=== PATIENT | male | born 1970 | race Two or more races ===

== ENCOUNTER → 2016-05-06 | Outpatient (CLI) | payer BC, OTHER | END | disposition home or self-care (01) | LOC: MW.CHORTHO 09:50 | PROVIDERS: ATTEND Orthopaedic Surgery | DX: M17.11 Unilateral primary osteoarthritis, right knee (principal) | CPT/HCPCS: 73721-RT ==

== ENCOUNTER 2016-06-01 09:56 | Inpatient (IN) | payer OTHER, BC ==
[~2016-06-01 09:56] MED LIST: Acetaminophen 500 MG Tab PO SCH; Famotidine 20 MG/2 ML SDV IVPUSH SCH; Ropivacaine 49.25 ML, EPINEPHrine 0.5 MG, cloNIDine 80 MCG in Sodium Chloride 0.9% 49.4... INJECT ONE; Scopolamine 1.5 MG Transdermal Patch TRDERM SCH; ceFAZolin 2 GM in Premix Bag 1 BAG IV SCH; oxyCODONE ER 20 MG TAB.ER PO SCH
[2016-06-01] MEDS ORDERED: Midazolam 1 MG/ML 2 ML SDV ONE ×2 (10:17→11:11)
[2016-06-01] MEDS: Lactated Ringers 1,000 ML IV SCH ×2 (10:41→15:01)
[2016-06-01] MEDS ORDERED: fentaNYL 100 MCG/2 ML SDV ONE (11:11)
[2016-06-01] MEDS ORDERED: Propofol 200 MG/20 ML SDV ONE ×5 (11:12→13:29)
--- NOTE | 2016-06-01 11:23 | PCM.PREANE ---
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; sleep apnea - uses CPAP) Cardiovascular: Other (aortic valve replacement 2011; coumadin until 5 days ago , then lovenox - last dose 12 hour ago HTN - on metoprolol) Gastrointestinal: No symptoms Neurological: Gait Disturbance (johan to knee pain) - Physical Assessment NPO Status Date: 05/31/16 NPO Status Time: 22:00 O2 Sat by Pulse Oximetry: 99 Respiratory Rate: 18 Vital Signs: Last Vital Signs Temp 98.2 F 06/01/16 10:31 Pulse 64 06/01/16 10:31 Resp 18 06/01/16 10:31 BP 135/87 06/01/16 10:31 Pulse Ox 99 06/01/16 10:31 Height: 5 ft 8 in Weight: 225 lb ASA Class: 3 Mental Status: Alert & Oriented x3 Airway Class: Mallampati = 1 Dentition: Reports: Normal Dentition Thyro-Mental Finger Breadths: 3 Mouth Opening Finger Breadths: 3 (wide palate) - Lab Values: Laboratory Last Values Blood Type A POSITIVE 06/01/16 10:15 Antibody Screen NEGATIVE 06/01/16 10:15 - Allergies Allergies/Adverse Reactions: Allergies Allergy/AdvReac Type Severity Reaction Status Date / Time No Known Allergies Allergy Verified 05/27/16 10:54 - Blood Blood Available: Yes Product(s) Available: PRBC - Anesthesia Plan Free Text/Narrative:: needs PT/PTT before neuroaxis anesthetic - Acknowledgements Anesthesia Type Planned: Spinal (with sedation) Pt an Appropriate Candidate for the Planned Anesthesia: Yes Alternatives and Risks of Anesthesia Discussed w Pt/Guardian: Yes Pt/Guardian Understands and Agrees with Anesthesia Plan: Yes PreAnesthesia Questionnaire HEENT History: Reports: None Cardiovascular History: Reports: Heart valve replacement Other Cardiovascular History: takes metoprolol since heart valve surgery, never hypertensive Respiratory History: Reports: Sleep apnea, TB Other Respiratory History: uses CPAP, was diagnosed with latent TB 3 months ago Gastrointestinal History: Reports: None Genitourinary History: Reports: None Musculoskeletal History: Reports: Arthritis, Fracture Other Musculoskeletal History: hx of fx right arm Neurological History: Reports: Other (see below) Other Neuro History: hx of motion sickness Psychiatric History: Reports: None Endocrine/Metabolic History: Reports: Obesity/BMI 30+ Hematologic History: Reports: None Immunologic History: Reports: None Oncologic (Cancer) History: Reports: None Dermatologic History: Reports: None - Infectious Disease History Infectious Disease History: Reports: Chicken pox - Past Surgical History Head Surgeries/Procedures: Reports: None HEENT Surgical History: Reports: None Cardiovascular Surgical History: Reports: Valve replacement Other Cardiovascular Surgeries/Procedures: Aortic Bicuspid Valve replacement Respiratory Surgical History: Reports: None GI Surgical History: Reports: None Male Surgical History: Reports: None Endocrine Surgical History: Reports: None Neurological Surgical History: Reports: None Musculoskeletal Surgical History: Reports: Arthroscopic knee Other Musculoskeletal Surgeries/Procedures:: right knee x2 Oncologic Surgical History: Reports: None Dermatological Surgical History: Reports: None - SUBSTANCE USE Smoking Status *Q: Current Some Day Smoker Tobacco Use Within Last Twelve Months: Cigars Second Hand Smoke Exposure: Yes Days Per Week of Alcohol Use: 0 Recreational Drug Use History: No - HOME MEDS Home Medications: Home Meds Clotrimazole/Betamethasone Dip [Lotrisone Cream] 1 lotion TOP BID 04/11/16 [ History] Folic Acid 1 mg PO DAILY 04/11/16 [History] Isoniazid 1 tab PO DAILY 04/11/16 [History] Methotrexate Sodium/PF [Methotrexate 1 gm Vial] 50 mg IM ASDIRECTED 04/11/16 [ History] Metoprolol Tartrate 25 mg PO BID 04/11/16 [History] Vitamin B6-pyridOXINE 1 tab PO DAILY 04/11/16 [History] Warfarin [Coumadin] 5 mg PO DAILY 04/11/16 [History] Acetaminophen [Tylenol Extra Strength] 500 mg PO Q4H PRN 05/27/16 [History] Fenofibrate Nanocrystallized [Fenofibrate] 145 mg PO BEDTIME 05/27/16 [History] traMADol HCl [Ultram] 50 - 100 mg PO Q4H PRN 05/27/16 [History] - CURRENT (IN HOUSE) MEDS Current Meds: Current Medications Acetaminophen (Tylenol Extra Strength) 1,000 mg PO ONARRIVE RICKEY Famotidine (Pepcid) 40 mg IVPUSH ONARRIVE RICKEY Lactated Ringer's (Ringers, Lactated) 1,000 mls @ 100 mls/hr IV ASDIRECTED [facility] Last Admin: 06/01/16 10:41 Dose: 100 mls/hr Cefazolin Sodium/Dextrose 2 gm (/ Premix) 50 mls @ 100 mls/hr IV ONCALL RICKEY Oxycodone HCl (Oxycontin) 20 mg PO [facility]IVE [facility] Scopolamine (Transderm-Scop) 1.5 mg TRDERM [facility] Tranexamic Acid (Cyklokapron) 4,000 mg IV SEECOMMENT [facility] Discontinued Medications Fentanyl (Sublimaze) Confirm Administered Dose 100 mcg .ROUTE .STK-MED ONE Stop: 06/01/16 11:12 Ropivacaine 49.25 ml/Epinephrine HCl 0.5 mg/Clonidine HCl 80 mcg/ Sodium Chloride 100 mls @ 50 mls/hr INJECT ONETIME ONE Stop: 06/01/16 08:59 Midazolam HCl (Versed 1 Mg/Ml) Confirm Administered Dose 2 mg .ROUTE .STK-MED ONE Stop: 06/01/16 10:18 Midazolam HCl (Versed 1 Mg/Ml) Confirm Administered Dose 2 mg .ROUTE .STK-MED ONE Stop: 06/01/16 11:12 Propofol (Diprivan 20 Ml) Confirm Administered Dose 200 mg .ROUTE .STK-MED ONE Stop: 06/01/16 11:13 Propofol (Diprivan 20 Ml) Confirm Administered Dose 200 mg .ROUTE .STK-MED ONE Stop: 06/01/16 11:13 Propofol (Diprivan 20 Ml) Confirm Administered Dose 200 mg .ROUTE .STK-MED ONE Stop: 06/01/16 11:14 Tranexamic Acid (Cyklokapron) Confirm Administered Dose 4,000 mg .ROUTE .STK- MED ONE Stop: 06/01/16 07:18 Preanesthetic Assessment - ANESTHESIA/TRANSFUSION/FAMILY HX Anesthesia/Transfusion History: No Prior Transfusion(s), Prior Anesthesia (GA without problems in the past) Family History of Anesthesia Reaction: No - PHYSICAL ASSESSMENT O2 Sat by Pulse Oximetry: 99 RR: 18 Vital Signs: Last Vital Signs Temp 98.2 F 06/01/16 10:31 Pulse 64 06/01/16 10:31 Resp 18 06/01/16 10:31 BP 135/87 06/01/16 10:31 Pulse Ox 99 06/01/16 10:31 Height: 5 ft 8 in Weight: 225 lb - LAB Values: Laboratory Last Values Blood Type A POSITIVE 06/01/16 10:15 Antibody Screen NEGATIVE 06/01/16 10:15 - ALLERGIES Allergies/Adverse Reactions: Allergies Allergy/AdvReac Type Severity Reaction Status Date / Time No Known Allergies Allergy Verified 05/27/16 10:54
--- NOTE | 2016-06-01 11:26 | PCM.OPNOTE ---
- General Post-Op/Procedure Note Date of Surgery/Procedure: 06/01/16 Operative Procedure(s): R TKA Post-Op Diagnosis: DJD R knee Anesthesia Technique: Moderate sedation, Spinal Primary Surgeon: Bria Mancilla Fruit Washer: Pb Banuelos Fruit Washer: Radha Hubbard in mLs: 50 Condition: Good Free Text/Narrative:: tt=62 min #[id number]
[2016-06-01] MEDS ORDERED: ePHEDrine 50 MG/ML SDV ONE (12:53)
[2016-06-01] MEDS ORDERED: Ondansetron 4 MG/2 ML SDV IV PRN (13:49)
[2016-06-01] MEDS ORDERED: Bisacodyl 10 MG Supp RECTAL PRN (13:49)
[2016-06-01] MEDS ORDERED: diphenhydrAMINE 25 MG Cap PO PRN (13:49)
[2016-06-01] MEDS ORDERED: Aluminum Hydroxide/Magnesium Hydroxide/Simethicone Susp 30 ML Cup PO PRN (13:49)
--- NOTE | 2016-06-01 14:27 | PCM.POSTAN ---
POST ANESTHESIA ASSESSMENT - MENTAL STATUS Mental Status: alert, oriented - RESPIRATORY Respiratory Status: respiratory rate WNL, airway patent, O2 saturation stable - CARDIOVASCULAR CV Status: pulse rate WNL, blood pressure stable - GASTROINTESTINAL GI Status: no symptoms - PAIN Pain Score: 0 - POST OP HYDRATION Hydration Status: adequate & stable
[2016-06-01] MEDS: Acetaminophen 500 MG Tab PO SCH ×2 (15:00→19:27)
--- NOTE | 2016-06-01 15:02 | PCM.CONS ---
H&P History of Present Illness - General Date of Service: 06/01/16 Admit Problem/Dx: Admission Diagnosis/Problem Admission Diagnosis/Problem Replacement of total knee joint Source of Information: Patient, Old records History Limitations: Reports: No limitations - History of Present Illness Initial Comments - Free Text/Narative: This 45 year old male with pmh of bicuspid aortic valve with replacement with metallic mechanical valve 2011, anticoagulation, VICKY, and obesity presented today for R TKA with Dr. Mancilla. He is very drowsy right out of surgery, Denies any pain, no SOB or Chest pain. family at bedside. Reports legs are numb still. No concerns at this time. He was recently seen by Telephone Assembler being worked up for RA and wanting to be placed on Humira. It was found he has latent TB and was placed on Isoniazid, he has been taking this for the past 3 mo. He is scheduled to take this for a total of 9 months. No symptoms at this time, no cough fever or night sweats. Reviewed charts from Dr. Mcgill and Dr. Bunn. - Related Data Allergies/Adverse Reactions: Allergies Allergy/AdvReac Type Severity Reaction Status Date / Time No Known Allergies Allergy Verified 05/27/16 10:54 Home Medications: Home Meds Clotrimazole/Betamethasone Dip [Lotrisone Cream] 1 lotion TOP BID 04/11/16 [ History] Folic Acid 1 mg PO DAILY 04/11/16 [History] Isoniazid 300 mg PO DAILY 04/11/16 [History] Methotrexate Sodium/PF [Methotrexate 1 gm Vial] 50 mg IM WEEKLY 04/11/16 [ History] Metoprolol Tartrate 25 mg PO BID 04/11/16 [History] Vitamin B6-pyridOXINE 1 tab PO DAILY 04/11/16 [History] Warfarin [Coumadin] 5 mg PO DAILY 04/11/16 [History] Acetaminophen [Tylenol Extra Strength] 500 mg PO Q4H PRN 05/27/16 [History] Fenofibrate Nanocrystallized [Fenofibrate] 145 mg PO BEDTIME 05/27/16 [History] traMADol HCl [Ultram] 50 - 100 mg PO Q4H PRN 05/27/16 [History] oxyCODONE HCl/Acetaminophen [Percocet 10-325 mg Tablet] 10 - 325 mg PO QID PRN 06/01/16 [History] Past Medical History HEENT History: Reports: None Cardiovascular History: Reports: Heart valve replacement Other Cardiovascular History: takes metoprolol since heart valve surgery, never hypertensive. Aortic valve, metallic mechanical Respiratory History: Reports: Sleep apnea (Uses CPAP), TB (Latent, currently on INH 3 mos of 9 mo treatment already taken) Gastrointestinal History: Reports: None. Denies: GERD, GI bleed Genitourinary History: Reports: None Musculoskeletal History: Reports: Arthritis, Fracture Other Musculoskeletal History: hx of fx right arm Neurological History: Reports: Other (see below) Psychiatric History: Reports: None Endocrine/Metabolic History: Reports: Obesity/BMI 30+. Denies: Diabetes, type II, Hypothyroidism Hematologic History: Reports: Anticoagulation therapy Immunologic History: Reports: None Oncologic (Cancer) History: Reports: None Dermatologic History: Reports: None - Infectious Disease History Infectious Disease History: Reports: Chicken pox, TB (latent) - Past Surgical History Head Surgeries/Procedures: Reports: None HEENT Surgical History: Reports: None Cardiovascular Surgical History: Reports: Valve replacement Other Cardiovascular Surgeries/Procedures: Aortic Bicuspid Valve replacement Respiratory Surgical History: Reports: None GI Surgical History: Reports: None Male Surgical History: Reports: None Endocrine Surgical History: Reports: None Neurological Surgical History: Reports: None Musculoskeletal Surgical History: Reports: Arthroscopic knee Other Musculoskeletal Surgeries/Procedures:: right knee x2 Oncologic Surgical History: Reports: None Dermatological Surgical History: Reports: None Social & Family History - Family History Cardiac: Reports: Hypertension, [place] - Tobacco Use Smoking Status *Q: Current Some Day Smoker Years of Tobacco use: 20 Packs/Tins Daily: 0 Used Tobacco, but Quit: Yes Month Tobacco Last Used: 2011 Tobacco Use Comment: occasional cigar Second Hand Smoke Exposure: Yes - Alcohol Use Days Per Week of Alcohol Use: 0 - Recreational Drug Use Recreational Drug Use: No Drug Use in Last 12 Months: No H&P Review of Systems - Review of Systems: Review Of Systems: ROS reveals no pertinent complaints other than HPI. HEENT: Reports: no symptoms. Denies: headaches Pulmonary: Reports: No Symptoms. Denies: Shortness of Breath, Cough, Sputum Cardiovascular: Reports: no symptoms. Denies: chest pain, palpitations, edema Gastrointestinal: Reports: No symptoms. Denies: Abdominal pain, Black stool, Bloody stool, Nausea, Vomiting Neurological: Reports: No Symptoms Exam - Exam Exam: See Below - Vital Signs Vital Signs: Last Vital Signs Temp 98.2 F 06/01/16 11:20 Pulse 64 06/01/16 14:20 Resp 19 06/01/16 14:20 BP 131/82 06/01/16 14:20 Pulse Ox 99 06/01/16 14:20 Weight: 102.058 kg - Exam Quality Assessment: urinary catheter, DVT prophylaxis General: alert, oriented, other (drowsy from surgery) HEENT: Conjunctiva clear, EACs clear, EOMI, Hearing intact, Mucosa moist & pink , Nares patent, Posterior pharynx clear Neck: supple, trachea midline, 2 Lungs: Clear to auscultation, Normal respiratory effort Cardiovascular: regular rate, regular rhythm, other (mechanical click) Abdomen: normal bowel sounds, soft. No: organomegaly, guarding, rigidity, rebound, tenderness Extremities: normal inspection, normal pulses. No: increased warmth Skin: incision (R TKA, dressing intact) Neuro Extensive - Mental Status: alert, oriented x3, normal mood/affect, normal cognition Neuro Extensive - Motor, Sensory, Reflexes: CN II-XII intact, normal gait, normal reflexes Psychiatric: alert, normal affect, normal mood - Patient Data Lab Results last 24 hrs: Laboratory Results - last 24 hr 06/01/16 06/01/16 Range/Units 10:15 11:21 INR 1.00 (0.86-1.11) Blood Type A POSITIVE Antibody Screen NEGATIVE Consult PN Assessment/Plan Procedures: Procedures ASSAY OF AMYLASE (04/11/16) ASSAY OF CK (CPK) (03/13/14) ASSAY OF LIPASE (04/11/16) ASSAY OF TROPONIN QUANT (05/08/15) CHEST X-RAY 1 VIEW FRONTAL (05/08/15) COMPLETE CBC W/AUTO DIFF WBC (04/11/16) COMPREHEN METABOLIC PANEL (04/11/16) CREATINE MB FRACTION (03/13/14) CT ABD & PELV W/CONTRAST (04/11/16) CT THORAX W/DYE (11/09/13) ELECTROCARDIOGRAM TRACING (05/08/15) EMERGENCY DEPT VISIT (04/11/16) EMERGENCY DEPT VISIT (11/24/14) EMERGENCY DEPT VISIT (03/13/14) FIBRIN DEGRADATION QUANT (05/08/15) GLYCOSYLATED HEMOGLOBIN TEST (03/13/14) IIV3 VACC NO PRSV 0.5 ML IM (03/13/14) KNEE ARTHROSCOPY/SURGERY (07/12/15) LIPID PANEL (03/13/14) MRI JNT OF LWR EXTRE W/O DYE (05/06/16) PROTHROMBIN TIME (04/11/16) ROUTINE VENIPUNCTURE (04/11/16) THER/PROPH/DIAG INJ IV PUSH (04/11/16) X-RAY EXAM KNEE 4 OR MORE (03/26/16) X-RAY EXAM OF KNEE 3 (01/31/15) (1) S/P total knee arthroplasty SNOMED Code(s): 4190125822159, 890557569, 9027939334052 Code(s): Z96.659 - PRESENCE OF UNSPECIFIED ARTIFICIAL KNEE JOINT Current Visit: Yes Qualifiers: Laterality: right Qualified Code(s): Z96.651 - Presence of right artificial knee joint (2) Aortic valve replaced SNOMED Code(s): 7037189709282, 790390013, 036622010, 8433760802075 Code(s): Z95.2 - PRESENCE OF PROSTHETIC HEART VALVE Current Visit: Yes (3) VICKY on CPAP SNOMED Code(s): 92677718 Code(s): G47.33 - OBSTRUCTIVE SLEEP APNEA (ADULT) (PEDIATRIC); Z99.89 - DEPENDENCE ON OTHER ENABLING MACHINES AND DEVICES Current Visit: Yes (4) Anticoagulated on Coumadin SNOMED Code(s): 70553175 Code(s): Z51.81 - ENCOUNTER FOR THERAPEUTIC DRUG LEVEL MONITORING; Z79.01 - NURSING HOME (CURRENT) USE OF ANTICOAGULANTS Current Visit: No Problem List Initiated/Reviewed/Updated: Yes Plan: This 45 year old male admitted with R TKA pmh of aortic valve replacement, VICKY, and anticoagulation on Coumadin 1. Aortic valve replacement and anticoagulation: Would recommend following Dr. Mcgill's instructions for restarting anticoagulation, Lovenox BID 1 mg/kg 24 -48 hrs post operatively and then Coumadin 48 hours after surgery. Monitor INR, today 1.0. Continue Metoprolol. 2. Latent TB: Continue INH daily 3. VICKY: CPAP at bedside. VTE: As per Dr Mcgill's recommendations and when deemed appropriate to start from Orthopedics.
[2016-06-01 16:26] LABS: CHLORIDE,CL 107 mmol/L (98-110); SODIUM,NA 138 mmol/L (136-146)
--- NOTE | 2016-06-01 16:34 | CR ---
EXAM DATE: 06/01/16 PATIENT'S AGE: 45 Patient: ALIA MASON Facility: [place], [place] Site . Site : [id number] Study: XRay Knee Right [id number]/01/2016 2:12:00 PM Ordering Physician: Charo Fraser Final Report: Indication: Right knee arthroplasty. Technique: Right knee 2 views. Findings/Impression: Hardware from a joint arthroplasty is in satisfactory position. Bone alignment is normal. No sign of acute fracture. Postop changes are within normal limits. Dictated by Arthur Levine MD @ Jun 01 2016 2:29PM (Electronic Signature) Report Signed by Proxy and Original Signed Document filed in the Medical Record. MTDD
[2016-06-01] MEDS: Morphine 4 MG/ML Syringe IVPUSH PRN ×2 (16:39→19:42)
[2016-06-01] MEDS: Metoprolol Tartrate 25 MG Tab PO SCH (16:41)
[2016-06-01] MEDS: oxyCODONE 5 MG Tab PO PRN ×2 (17:28→22:17)
[2016-06-01] MEDS: ceFAZolin 2 GM in Premix Bag 1 BAG IV SCH (19:29)
[2016-06-01] MEDS: oxyCODONE ER 20 MG TAB.ER PO SCH (20:18)
[2016-06-01] MEDS: Docusate Sodium 100 MG Cap PO SCH (20:18)
[2016-06-01] MEDS: Fenofibrate Nanocrystallized 145 MG PO SCH (20:47)
--- NOTE | 2016-06-01 20:54 | OR ---
SURGEON: Bria Mancilla MD DATE OF PROCEDURE: 06/01/2016 PREOPERATIVE DIAGNOSIS: Degenerative joint disease, right knee, tricompartmental. POSTOPERATIVE DIAGNOSIS: Degenerative joint disease, right knee, tricompartmental. PROCEDURES: Right total knee arthroplasty using patient specific instrumentation. REVENUE MANAGER: 1. Pb Banuelos PA-C. 2. Radha Hubbard PA-C. ANESTHESIA: Spinal with sedation. ESTIMATED BLOOD LOSS: 50 mL. TOURNIQUET TIME: 62 minutes. COMPLICATIONS: None. DVT PROPHYLAXIS: PAS boot and LUIS hose to the nonoperative leg. IMPLANTS USED: Shanta Persona femoral component size 11 (LPS), tibial component size G, 10 mm all-polyethylene articular surface, and 35 mm all-polyethylene patella. FINDINGS: Showed evidence of tricompartmental degenerative changes which were most severe along the medial compartment. No significant synovitis was noted. 1 g of tranexamic acid was given at the start of the case. An additional g was given IV upon deflation of the tourniquet. 1 g of TXA was administered topically as the cement was allowed to harden. BRIEF HISTORY: The patient is a 45-year-old male, who has had complaint of persistent right knee pain. He has previously undergone a right knee arthroscopy which did show a tear of the medial meniscus. Degenerative changes were found at the time of surgery as well. He did well initially, however, he developed increased pain in the knee. A repeat MRI did show a tear of the lateral meniscus. The patient does have a history of aortic valve replacement and is on long-term anticoagulation. We elected to proceed with definitive treatment for his knee due to his medical conditions as well as the degenerative changes in the knee. He had failed conservative treatment. The risks and goals of procedure were discussed with the patient and documented preoperatively. He agreed to proceed. DESCRIPTION OF PROCEDURE: The patient was properly identified and brought to the operating room. The patient was then transferred from the operating room cart and placed on the operating table in a supine position. Anesthesia was administered by the anesthesia staff. After adequate anesthesia was obtained, a well-padded tourniquet was applied to the surgical lower extremity. The lower extremity was then prepped in standard fashion using ChloraPrep solution. It was then sterilely draped. A time-out was performed to ensure correct site and procedure. Preoperative antibiotics were given. The surgical site had been marked preoperatively. An Esmarch was used to exsanguinate the right lower extremity and the tourniquet was inflated. An incision was made over the anterior aspect of the knee. The subcutaneous tissues were dissected down to the level of the fascia. A medial parapatellar approach to the knee was made. A portion of the infrapatellar fat pad was then excised. The distal femur was then exposed. The femoral patient-specific cutting guide was then placed. Pins were also placed. The distal femoral cutting block was placed and the distal femoral cut was made. Instrumentation was then removed. Both Whitesides' line and the epicondylar axis were then marked with electrocautery. The 4-in-1 cutting block was placed. This was placed in a slightly externally rotated position, which corresponded well with the previously drawn lines. The cutting guide was then pinned into position. An Yoni wing guide was used to check the depth of resection of our anterior condylar cut and it was felt that no notching would occur. The anterior condylar cut was then made followed by the posterior condylar cut. Both the posterior chamfer and anterior chamfer cuts were then made. The cutting block was then removed along with the excess bony remnants. We then turned our attention to the tibia. The anterior cruciate ligament and posterior cruciate ligament were released and a posterior cruciate ligament retractor was placed to allow the tibia to be pulled anteriorly. The tibial patient-specific guide was then placed on the proximal tibia. This fit anatomically. The pins were then placed. The proximal tibia cutting guide was then placed and screwed into position. The proximal tibial resection was then made with care being taken to protect the patellar tendon. The bony resection was then removed. The remainder of the medial and lateral meniscus were then excised. Care was taken to protect the popliteus tendon. The tibia was then sized to the appropriate size. The distal femur was then elevated. The posterior capsule was stripped off the distal femur both medially and laterally. The posterior capsule along with the medial and lateral gutters were then injected with a standard mixture consisting of clonidine, epinephrine, Morphine, Toradol, and Ropivacaine, unless any allergies were found preoperatively. The femoral component was then placed onto the distal femur in a slightly lateral position. This fit the femur well. A box cut was then made without difficulty. This was then removed. The tibial trial along with the polyethylene liner was then placed. The knee came easily into full extension and was stable to varus and valgus stressing both in full extension and flexion. Any additional releases were performed at this time. We then returned our attention to the patella. The patella was everted and towel clamps were used to hold the patella in position. It was resected to a 15 millimeter thickness. It was then sized to the appropriate size. It was prepared in the usual fashion after placing the predetermined size clamps. This was placed in a slightly superior and medial position. The clamp was then removed. The patellar trial button was placed. The knee was taken through a range of motion using the no-touch technique. The patella tracked centrally. A drop tim was then placed to check alignment. All instruments were then removed from the knee. The tibial sizer was then placed on the tibia. The tibia was prepared in the usual fashion using the reamer and broach. This was then removed. All bony surfaces were copiously irrigated with Pulsavac solution. They were then suctioned dry. Cement was prepared on the back table in the usual manner. Once it was prepared, the bone ends were again suctioned dry. The tibia was cemented into place first. This was malleted into position. Excess cement was then cleared. The femur was then placed in a similar manner. We placed the polyethylene trial into place and the knee was brought into full extension. An axial load was placed while keeping the knee in full extension. The patella button was also cemented into position and the clamp was used to hold this in place as the cement was allowed to cure. After we had adequate curing of the cement, the knee was again taken through a range of motion. The size of the polyethylene was then determined. The polyethylene trial was then removed. The tibial tray was suctioned to make sure there was no remaining soft tissue or cement. Excess cement was cleared from around the edges of the prosthesis as well. The tourniquet was then deflated. We were able to observe for any excess bleeding and none was noted. Electrocautery was used to maintain hemostasis. The retractors were again placed and the predetermined polyethylene was then placed. This was locked into position without difficulty. The knee was again taken through a range of motion with no change from the prior exam. The wound was then copiously irrigated with Pulsavac solution. The fascial layer was closed with Number One Vicryl. The subcutaneous tissues were closed with 2-0 Vicryl. The skin was closed with elder. Xeroform gauze was placed over the wound and a bulky dressing was applied. The patient was then awakened from anesthesia and transferred back to the operating room cart. They were brought to the recovery room in stable condition. All needle and sponge counts were correct. VON / FAHEEM /[id number]
[2016-06-01] MEDS: HYDROmorphone 1 MG/ML Syringe IVPUSH PRN (21:50)
[2016-06-02] MEDS: Lactated Ringers 1,000 ML IV SCH (00:44)
[2016-06-02] MEDS: HYDROmorphone 1 MG/ML Syringe IVPUSH PRN ×8 (00:50→23:38)
[2016-06-02] MEDS: Acetaminophen 500 MG Tab PO SCH ×4 (02:12→19:40)
[2016-06-02] MEDS: oxyCODONE 5 MG Tab PO PRN ×5 (02:42→19:50)
[2016-06-02] MEDS: ceFAZolin 2 GM in Premix Bag 1 BAG IV SCH (03:45)
[2016-06-02 05:28] LABS: CHLORIDE,CL 102 mmol/L (98-110); SODIUM,NA 137 mmol/L (136-146)
--- NOTE | 2016-06-02 07:46 | PCM48HPAN ---
Post Anesthesia Note - EVALUATION WITHIN 48HRS OF ANESTHETIC Vital Signs in Normal Range: Yes Patient Participated in Evaluation: Yes Respiratory Function Stable: Yes Airway Patent: Yes Cardiovascular Function Stable: Yes Hydration Status Stable: Yes Pain Control Satisfactory: No (Pt requested dilaudid by name last night - order given via ortho PA) Nausea and Vomiting Control Satisfactory: Yes Mental Status Recovered: Yes - COMMENTS/OBSERVATIONS Free Text/Narrative:: Pt states that he has had sever pain overnight. He has now been receiving Dilaudid IV, which he requested by name, and states that only helps for a short time. Currently pt appears calm with a HR in the 60's, but states that his pain is 20/10. ABDIRASHID Blount was also in attendance and will be following up with pain management. No nausea overnight and no apparent anesthesia complications.
[2016-06-02] MEDS ORDERED: Sodium Chloride 0.9% 10 ML Syringe FLUSH PRN (07:57)
[2016-06-02] MEDS ORDERED: Sodium Chloride 0.9% 2.5 ML Syringe FLUSH PRN (07:57)
--- NOTE | 2016-06-02 07:58 | PCM.SURGPN ---
- General Info Date of Service: 06/02/16 Date of Surgery/Procedure: 06/01/16 POD#: 1 Functional Status: Reports: tolerating diet, ambulating, urinating - Review of Systems General: Reports: No Symptoms Pulmonary: Reports: no symptoms Cardiovascular: Reports: No Symptoms Gastrointestinal: Reports: No symptoms Genitourinary: Reports: no symptoms Musculoskeletal: Reports: leg pain, joint pain, joint swelling Neurological: Reports: No Symptoms Psychiatric: Reports: no symptoms - Patient Data Vitals - most recent: Last Vital Signs Temp 37.1 C 06/02/16 04:00 Pulse 67 06/02/16 04:00 Resp 12 06/02/16 04:00 BP 149/89 H 06/02/16 04:00 Pulse Ox 96 06/02/16 04:00 Weight - most recent: 102 kg I&O - last 24 hours: Intake & Output 06/01/16 06/02/16 06/02/16 22:59 06:59 14:59 Intake Total 1150 3174 Output Total 400 550 Balance 750 2624 Lab Results last 24 hrs: Laboratory Results - last 24 hr 06/01/16 06/01/16 06/01/16 Range/Units 10:15 10:15 10:15 WBC 7.73 (4.0-11.0) K/uL RBC 4.25 L (4.50-5.90) M/uL Hgb 14.8 (13.0-17.0) g/dL Hct 41.2 (38.0-50.0) % MCV 96.9 (80.0-98.0) fL MCH 34.8 H (27.0-32.0) pg MCHC 35.9 (31.0-37.0) g/dL RDW Std Deviation 44.7 (28.0-62.0) fl RDW Coeff of Ghada 13 (11.0-15.0) % Plt Count 189 (150-400) K/uL MPV 11.10 (7.40-12.00) fL Neut % (Auto) 72.4 (48.0-80.0) % Lymph % (Auto) 20.3 (16.0-40.0) % Millard % (Auto) 6.2 (0.0-15.0) % Eos % (Auto) 0.8 (0.0-7.0) % Baso % (Auto) 0.3 (0.0-1.5) % Neut # (Auto) 5.6 (1.4-5.7) K/uL Lymph # (Auto) 1.6 (0.6-2.4) K/uL Millard # (Auto) 0.5 (0.0-0.8) K/uL Eos # (Auto) 0.1 (0.0-0.7) K/uL Baso # (Auto) 0.0 (0.0-0.1) K/uL Nucleated RBC % 0.0 /100WBC Nucleated RBCs # 0 K/uL INR (0.86-1.11) Sodium 138 (136-146) mmol/L Potassium 4.0 (3.5-5.1) mmol/L Chloride 107 (98-110) mmol/L Carbon Dioxide 20 L (21-31) mmol/L BUN 9 (6.0-23.0) mg/dL Creatinine 0.9 (0.6-1.5) mg/dL Est Cr Clr Drug Dosing 101.71 mL/min Estimated GFR (MDRD) > 60.0 ml/min Glucose 153 H (60-110) mg/dL Calcium 8.9 (8.8-10.8) mg/dL Total Bilirubin 0.4 (0.1-1.5) mg/dL AST 23 (5-40) IU/L ALT 36 (8-54) IU/L Alkaline Phosphatase 56 (40-150) Total Protein 6.7 (6.0-8.0) g/dL Albumin 3.7 (3.5-5.0) g/dL Globulin 3.0 (2.0-3.5) g/dL Albumin/Globulin Ratio 1.2 L (1.3-2.8) Blood Type A POSITIVE Antibody Screen NEGATIVE 06/01/16 06/02/16 06/02/16 Range/Units 11:21 04:24 04:24 WBC (4.0-11.0) K/uL RBC (4.50-5.90) M/uL Hgb 12.7 L (13.0-17.0) g/dL Hct 35.3 L (38.0-50.0) % MCV (80.0-98.0) fL MCH (27.0-32.0) pg MCHC (31.0-37.0) g/dL RDW Std Deviation (28.0-62.0) fl RDW Coeff of Ghada (11.0-15.0) % Plt Count (150-400) K/uL MPV (7.40-12.00) fL Neut % (Auto) (48.0-80.0) % Lymph % (Auto) (16.0-40.0) % Millard % (Auto) (0.0-15.0) % Eos % (Auto) (0.0-7.0) % Baso % (Auto) (0.0-1.5) % Neut # (Auto) (1.4-5.7) K/uL Lymph # (Auto) (0.6-2.4) K/uL Millard # (Auto) (0.0-0.8) K/uL Eos # (Auto) (0.0-0.7) K/uL Baso # (Auto) (0.0-0.1) K/uL Nucleated RBC % /100WBC Nucleated RBCs # K/uL INR 1.00 (0.86-1.11) Sodium 137 (136-146) mmol/L Potassium 4.0 (3.5-5.1) mmol/L Chloride 102 (98-110) mmol/L Carbon Dioxide 22 (21-31) mmol/L BUN 9 (6.0-23.0) mg/dL Creatinine 0.9 (0.6-1.5) mg/dL Est Cr Clr Drug Dosing 101.71 mL/min Estimated GFR (MDRD) > 60.0 ml/min Glucose 101 (60-110) mg/dL Calcium 8.6 L (8.8-10.8) mg/dL Total Bilirubin (0.1-1.5) mg/dL AST (5-40) IU/L ALT (8-54) IU/L Alkaline Phosphatase (40-150) Total Protein (6.0-8.0) g/dL Albumin (3.5-5.0) g/dL Globulin (2.0-3.5) g/dL Albumin/Globulin Ratio (1.3-2.8) Blood Type Antibody Screen Med Orders - Current: Current Medications Acetaminophen (Tylenol Extra Strength) 1,000 mg PO Q6H [facility] Last Admin: 06/02/16 02:12 Dose: 1,000 mg Al Hydroxide/Mg Hydroxide (Mag-Al Plus) 30 ml PO Q4H PRN PRN Reason: indigestion Bisacodyl (Dulcolax) 10 mg RECTAL DAILY PRN PRN Reason: Constipation Diphenhydramine HCl (Benadryl) 25 - 50 mg PO Q6H PRN PRN Reason: Itching Docusate Sodium (Colace) 100 mg PO BID [facility] Last Admin: 06/01/16 20:18 Dose: 100 mg Enoxaparin Sodium (Lovenox) 100 mg SUBCUT Q12H [facility] Folic Acid (Folic Acid) 1 mg PO DAILY [facility] Hydromorphone HCl (Dilaudid) 1 mg IVPUSH Q3H PRN PRN Reason: Pain Last Admin: 06/02/16 06:50 Dose: 1 mg Lactated Ringer's (Ringers, Lactated) 1,000 mls @ 100 mls/hr IV ASDIRECTED [facility] Last Admin: 06/02/16 00:44 Dose: 100 mls/hr Metoprolol Tartrate (Lopressor) 25 mg PO BIDMEALS [facility] Last Admin: 06/01/16 16:41 Dose: 25 mg Ondansetron HCl (Zofran) 4 mg IV Q6HR PRN PRN Reason: NAUSEA/VOMITING Oxycodone HCl (Oxycodone) 5 - 10 mg PO Q4H PRN PRN Reason: Pain Last Admin: 06/02/16 02:42 Dose: 10 mg Oxycodone HCl (Oxycontin) 20 mg PO Q12HR [facility] Last Admin: 06/01/16 20:18 Dose: 20 mg Isoniazid 300 Mg 1 each PO DAILY [facility] Fenofibrate Nanocrystallized 145 Mg 1 each PO BEDTIME [facility] Last Admin: 06/01/16 20:47 Dose: Not Given Pyridoxine HCl (Vitamin B6-Pyridoxine) 50 mg PO DAILY [facility] Scopolamine (Transderm-Scop) 1.5 mg TRDERM ONARRIVE [facility] Last Admin: 06/01/16 11:00 Dose: 1.5 mg Warfarin Sodium (Coumadin) 5 mg PO DAILY@1400 [facility] Discontinued Medications Acetaminophen (Tylenol Extra Strength) 1,000 mg PO ONARRIVE [facility] Last Admin: 06/01/16 11:00 Dose: 1,000 mg Enoxaparin Sodium (Lovenox) 100 mg SUBCUT DAILY [facility] Ephedrine Sulfate (Ephedrine Sulfate) Confirm Administered Dose 50 mg .ROUTE .STK-MED ONE Stop: 06/01/16 12:54 Famotidine (Pepcid) 40 mg IVPUSH ONARRIVE [facility] Last Admin: 06/01/16 11:00 Dose: 40 mg Fentanyl (Sublimaze) Confirm Administered Dose 100 mcg .ROUTE .STK-MED ONE Stop: 06/01/16 11:12 Ropivacaine 49.25 ml/Epinephrine HCl 0.5 mg/Clonidine HCl 80 mcg/ Sodium Chloride 100 mls @ 50 mls/hr INJECT ONETIME ONE Stop: 06/01/16 08:59 Last Admin: 06/01/16 15:33 Dose: Not Given Cefazolin Sodium/Dextrose 2 gm (/ Premix) 50 mls @ 100 mls/hr IV ONCALL [facility] Cefazolin Sodium/Dextrose 2 gm (/ Premix) 50 mls @ 100 mls/hr IV Q8H [facility] Stop: 06/02/16 04:29 Last Admin: 06/02/16 03:45 Dose: 100 mls/hr Midazolam HCl (Versed 1 Mg/Ml) Confirm Administered Dose 2 mg .ROUTE .STK-MED ONE Stop: 06/01/16 10:18 Midazolam HCl (Versed 1 Mg/Ml) Confirm Administered Dose 2 mg .ROUTE .STK-MED ONE Stop: 06/01/16 11:12 Morphine Sulfate (Morphine) 1 - 3 mg IVPUSH Q3H PRN PRN Reason: Pain Last Admin: 06/01/16 19:42 Dose: 3 mg Oxycodone HCl (Oxycontin) 20 mg PO ONARRIVE [facility] Last Admin: 06/01/16 11:00 Dose: 20 mg Propofol (Diprivan 20 Ml) Confirm Administered Dose 200 mg .ROUTE .STK-MED ONE Stop: 06/01/16 11:13 Propofol (Diprivan 20 Ml) Confirm Administered Dose 200 mg .ROUTE .STK-MED ONE Stop: 06/01/16 11:13 Propofol (Diprivan 20 Ml) Confirm Administered Dose 200 mg .ROUTE .STK-MED ONE Stop: 06/01/16 11:14 Propofol (Diprivan 20 Ml) Confirm Administered Dose 200 mg .ROUTE .STK-MED ONE Stop: 06/01/16 13:01 Propofol (Diprivan 20 Ml) Confirm Administered Dose 200 mg .ROUTE .STK-MED ONE Stop: 06/01/16 13:30 Tranexamic Acid (Cyklokapron) 4,000 mg IV SEECOMMENT [facility] Tranexamic Acid (Cyklokapron) Confirm Administered Dose 4,000 mg .ROUTE .STK- MED ONE Stop: 06/01/16 07:18 - Exam Wound/Incisions: dressing dry and intact General: alert, oriented HEENT: Pupils equal, Pupils reactive Lungs: Normal respiratory effort Cardiovascular: Regular Rate Abdomen: soft Extremities: other (RLE gastroc, EHL and anterior tibialis strength 5/5. Sensation intact distally. ) Neurological: no new focal deficit Psy/Mental Status: alert, normal affect, normal mood - Problem List Review Problem List Initiated/Reviewed/Updated: Yes - My Orders Last 24 Hours: Active Orders 24 hr Category Date Time Status Patient Status [ADT] Routine ADT 06/01/16 11:26 Active Transfer Patient (Change bed) [ADT] Routine ADT 06/01/16 11:26 Ordered Activity as Tolerated [RC] .Routine Care 06/01/16 13:49 Active Insert Urinary Catheter [OM.PC] Routine Care 06/01/16 08:00 Ordered Intake and Output [RC] Q12H Care 06/01/16 13:48 Active Neurovascular Check [RC] Q2HR Care 06/01/16 13:48 Active Notify Provider Consults [RC] ASDIRECTED Care 06/01/16 13:50 Active Notify Provider Vital Signs [RC] ASDIRECTED Care 06/01/16 13:49 Active RT Incentive Spirometry [RC] ASDIRECTED Care 06/01/16 13:48 Active Vital Signs [RC] Q4H Care 06/01/16 13:48 Active Consult to Physician [CONS] Routine Cons 06/01/16 13:48 Active PT Evaluation and Treatment [CONS] Routine Cons 06/01/16 13:48 Active BMP [BASIC METABOLIC PANEL,BMP] [CHEM] DAILY Lab 06/03/16 05:00 Ordered BMP [BASIC METABOLIC PANEL,BMP] [CHEM] DAILY Lab 06/04/16 05:00 Ordered HEMOGLOBIN/HEMATOCRIT,HH [HEME] DAILY Lab 06/03/16 07:00 Ordered HEMOGLOBIN/HEMATOCRIT,HH [HEME] DAILY Lab 06/04/16 07:00 Ordered INR,PT,PROTHROMBIN TIME [COAG] Routine Lab 06/03/16 07:00 Ordered Acetaminophen [Tylenol Extra Strength] Med 06/01/16 14:00 Active 1,000 mg PO Q6H Alum Hydrox/Mag Hydrox/Simeth [Mag-Al Plus] Med 06/01/16 13:49 Active 30 ml PO Q4H PRN Bisacodyl [Dulcolax] Med 06/01/16 13:49 Active 10 mg RECTAL DAILY PRN Docusate Sodium [Colace] Med 06/01/16 21:00 Active 100 mg PO BID Enoxaparin [Lovenox] Med 06/02/16 09:00 Active 100 mg SUBCUT Q12H Folic Acid Med 06/02/16 09:00 Active 1 mg PO DAILY HYDROmorphone [Dilaudid] Med 06/01/16 22:00 Active 1 mg IVPUSH Q3H PRN Metoprolol Tartrate [Lopressor] Med 06/01/16 17:00 Active 25 mg PO BIDMEALS Ondansetron [Zofran] Med 06/01/16 13:49 Active 4 mg IV Q6HR PRN Patient's Own Medication [Ptom] Med 06/01/16 21:00 Active 1 each PO BEDTIME Patient's Own Medication [Ptom] Med 06/02/16 09:00 Active 1 each PO DAILY Vitamin B6-pyridOXINE Med 06/02/16 09:00 Active 50 mg PO DAILY Warfarin [Coumadin] Med 06/02/16 14:00 Active 5 mg PO DAILY@1400 diphenhydrAMINE [Benadryl] Med 06/01/16 13:49 Active 25 - 50 mg PO Q6H PRN oxyCODONE Med 06/01/16 13:49 Active 5 - 10 mg PO Q4H PRN oxyCODONE ER [OxyCONTIN] Med 06/01/16 21:00 Active 20 mg PO Q12HR Ice Therapy [OM.PC] Routine Oth 06/01/16 13:48 Ordered Medication Orders Acetaminophen (Tylenol Extra Strength) 1,000 mg PO Q6H [facility] Last Admin: 06/02/16 02:12 Dose: 1,000 mg Admin: 06/01/16 19:27 Dose: 1,000 mg Admin: 06/01/16 15:00 Dose: 1,000 mg Al Hydroxide/Mg Hydroxide (Mag-Al Plus) 30 ml PO Q4H PRN PRN Reason: indigestion Bisacodyl (Dulcolax) 10 mg RECTAL DAILY PRN PRN Reason: Constipation Diphenhydramine HCl (Benadryl) 25 - 50 mg PO Q6H PRN PRN Reason: Itching Docusate Sodium (Colace) 100 mg PO BID [facility] Last Admin: 06/01/16 20:18 Dose: 100 mg Enoxaparin Sodium (Lovenox) 100 mg SUBCUT Q12H [facility] Folic Acid (Folic Acid) 1 mg PO DAILY [facility] Hydromorphone HCl (Dilaudid) 1 mg IVPUSH Q3H PRN PRN Reason: Pain Last Admin: 06/02/16 06:50 Dose: 1 mg Admin: 06/02/16 03:50 Dose: 1 mg Admin: 06/02/16 00:50 Dose: 1 mg Admin: 06/01/16 21:50 Dose: 1 mg Lactated Ringer's (Ringers, Lactated) 1,000 mls @ 100 mls/hr IV ASDIRECTED [facility] Last Admin: 06/02/16 00:44 Dose: 100 mls/hr Infusion: 06/02/16 00:44 Dose: 100 mls/hr Admin: 06/01/16 15:01 Dose: 100 mls/hr Infusion: 06/01/16 15:01 Dose: 100 mls/hr Admin: 06/01/16 10:41 Dose: 100 mls/hr Metoprolol Tartrate (Lopressor) 25 mg PO BIDMEALS [facility] Last Admin: 06/01/16 16:41 Dose: 25 mg Ondansetron HCl (Zofran) 4 mg IV Q6HR PRN PRN Reason: NAUSEA/VOMITING Oxycodone HCl (Oxycodone) 5 - 10 mg PO Q4H PRN PRN Reason: Pain Last Admin: 06/02/16 02:42 Dose: 10 mg Admin: 06/01/16 22:17 Dose: 10 mg Admin: 06/01/16 17:28 Dose: 10 mg Oxycodone HCl (Oxycontin) 20 mg PO Q12HR [facility] Last Admin: 06/01/16 20:18 Dose: 20 mg Isoniazid 300 Mg 1 each PO DAILY [facility] Fenofibrate Nanocrystallized 145 Mg 1 each PO BEDTIME [facility] Last Admin: 06/01/16 20:47 Dose: Pyridoxine HCl (Vitamin B6-Pyridoxine) 50 mg PO DAILY [facility] Scopolamine (Transderm-Scop) 1.5 mg TRDERM ONARRIVE [facility] Last Admin: 06/01/16 11:00 Dose: 1.5 mg Warfarin Sodium (Coumadin) 5 mg PO DAILY@1400 [facility] - Assessment Assessment (Free Text/Narrative):: Patient in bed this AM Patient states pain is not well controlled Discontinued Morphine last night, started Dilaudid Tolerating diet Hgb 12.7 UO 1140 mL VSS - Plan Plan (Free Text/Narrative):: Continue pain management Continue PT Resume Coumadin and Lovenox today Will keep patient until pain is better controlled
[2016-06-02] MEDS: Metoprolol Tartrate 25 MG Tab PO SCH ×2 (08:31→17:07)
[2016-06-02] MEDS: Docusate Sodium 100 MG Cap PO SCH ×2 (08:32→21:07)
[2016-06-02] MEDS: Vitamin B6-pyridOXINE 50 MG Tab PO SCH (08:32)
[2016-06-02] MEDS: Folic Acid 1 MG Tab PO SCH (08:33)
[2016-06-02] MEDS: oxyCODONE ER 20 MG TAB.ER PO SCH ×2 (08:33→21:07)
[2016-06-02] MEDS: Enoxaparin 100 MG/1 ML Syringe SUBCUT SCH ×2 (08:33→21:07)
[2016-06-02] MEDS ORDERED: Enoxaparin 100 MG/1 ML Syringe SUBCUT SCH (09:00)
--- NOTE | 2016-06-02 09:54 | PCM.CONSN ---
- General Info Date of Service: 06/02/16 Admission Dx/Problem (Free Text): Admission Diagnosis/Problem Admission Diagnosis/Problem Replacement of total knee joint Subjective Update: Uncontrolled pain to surgical Knee, no complaints of chest pain or SOB. Ortho aware of knee pain. Requesting nicotine patch. Functional Status: Reports: tolerating diet, ambulating. Denies: pain controlled - Review of Systems General: Reports: No Symptoms. Denies: Fever Pulmonary: Reports: no symptoms. Denies: shortness of breath, cough, sputum Cardiovascular: Reports: No Symptoms. Denies: Chest Pain, Palpitations, Dyspnea on Exertion Gastrointestinal: Reports: No symptoms. Denies: Abdominal pain, Nausea, Vomiting - Patient Data Vitals - most recent: Last Vital Signs Temp 98.4 F 06/02/16 07:59 Pulse 71 06/02/16 08:31 Resp 20 06/02/16 07:59 BP 150/100 H 06/02/16 08:31 Pulse Ox 98 06/02/16 07:59 Weight - most recent: 102 kg I&O - last 24 hours: Intake & Output 06/01/16 06/02/16 06/02/16 22:59 06:59 14:59 Intake Total 1150 3174 Output Total 400 550 Balance 750 2624 Lab Results last 24 hrs: Laboratory Results - last 24 hr 06/01/16 06/01/16 06/01/16 Range/Units 10:15 10:15 10:15 WBC 7.73 (4.0-11.0) K/uL RBC 4.25 L (4.50-5.90) M/uL Hgb 14.8 (13.0-17.0) g/dL Hct 41.2 (38.0-50.0) % MCV 96.9 (80.0-98.0) fL MCH 34.8 H (27.0-32.0) pg MCHC 35.9 (31.0-37.0) g/dL RDW Std Deviation 44.7 (28.0-62.0) fl RDW Coeff of Ghada 13 (11.0-15.0) % Plt Count 189 (150-400) K/uL MPV 11.10 (7.40-12.00) fL Neut % (Auto) 72.4 (48.0-80.0) % Lymph % (Auto) 20.3 (16.0-40.0) % Morrow % (Auto) 6.2 (0.0-15.0) % Eos % (Auto) 0.8 (0.0-7.0) % Baso % (Auto) 0.3 (0.0-1.5) % Neut # (Auto) 5.6 (1.4-5.7) K/uL Lymph # (Auto) 1.6 (0.6-2.4) K/uL Morrow # (Auto) 0.5 (0.0-0.8) K/uL Eos # (Auto) 0.1 (0.0-0.7) K/uL Baso # (Auto) 0.0 (0.0-0.1) K/uL Nucleated RBC % 0.0 /100WBC Nucleated RBCs # 0 K/uL INR (0.86-1.11) Sodium 138 (136-146) mmol/L Potassium 4.0 (3.5-5.1) mmol/L Chloride 107 (98-110) mmol/L Carbon Dioxide 20 L (21-31) mmol/L BUN 9 (6.0-23.0) mg/dL Creatinine 0.9 (0.6-1.5) mg/dL Est Cr Clr Drug Dosing 101.71 mL/min Estimated GFR (MDRD) > 60.0 ml/min Glucose 153 H (60-110) mg/dL Calcium 8.9 (8.8-10.8) mg/dL Total Bilirubin 0.4 (0.1-1.5) mg/dL AST 23 (5-40) IU/L ALT 36 (8-54) IU/L Alkaline Phosphatase 56 (40-150) Total Protein 6.7 (6.0-8.0) g/dL Albumin 3.7 (3.5-5.0) g/dL Globulin 3.0 (2.0-3.5) g/dL Albumin/Globulin Ratio 1.2 L (1.3-2.8) Blood Type A POSITIVE Antibody Screen NEGATIVE 06/01/16 06/02/16 06/02/16 Range/Units 11:21 04:24 04:24 WBC (4.0-11.0) K/uL RBC (4.50-5.90) M/uL Hgb 12.7 L (13.0-17.0) g/dL Hct 35.3 L (38.0-50.0) % MCV (80.0-98.0) fL MCH (27.0-32.0) pg MCHC (31.0-37.0) g/dL RDW Std Deviation (28.0-62.0) fl RDW Coeff of Ghada (11.0-15.0) % Plt Count (150-400) K/uL MPV (7.40-12.00) fL Neut % (Auto) (48.0-80.0) % Lymph % (Auto) (16.0-40.0) % Morrow % (Auto) (0.0-15.0) % Eos % (Auto) (0.0-7.0) % Baso % (Auto) (0.0-1.5) % Neut # (Auto) (1.4-5.7) K/uL Lymph # (Auto) (0.6-2.4) K/uL Morrow # (Auto) (0.0-0.8) K/uL Eos # (Auto) (0.0-0.7) K/uL Baso # (Auto) (0.0-0.1) K/uL Nucleated RBC % /100WBC Nucleated RBCs # K/uL INR 1.00 (0.86-1.11) Sodium 137 (136-146) mmol/L Potassium 4.0 (3.5-5.1) mmol/L Chloride 102 (98-110) mmol/L Carbon Dioxide 22 (21-31) mmol/L BUN 9 (6.0-23.0) mg/dL Creatinine 0.9 (0.6-1.5) mg/dL Est Cr Clr Drug Dosing 101.71 mL/min Estimated GFR (MDRD) > 60.0 ml/min Glucose 101 (60-110) mg/dL Calcium 8.6 L (8.8-10.8) mg/dL Total Bilirubin (0.1-1.5) mg/dL AST (5-40) IU/L ALT (8-54) IU/L Alkaline Phosphatase (40-150) Total Protein (6.0-8.0) g/dL Albumin (3.5-5.0) g/dL Globulin (2.0-3.5) g/dL Albumin/Globulin Ratio (1.3-2.8) Blood Type Antibody Screen Med Orders - Current: Current Medications Acetaminophen (Tylenol Extra Strength) 1,000 mg PO Q6H [facility] Last Admin: 06/02/16 08:32 Dose: 1,000 mg Al Hydroxide/Mg Hydroxide (Mag-Al Plus) 30 ml PO Q4H PRN PRN Reason: indigestion Bisacodyl (Dulcolax) 10 mg RECTAL DAILY PRN PRN Reason: Constipation Diphenhydramine HCl (Benadryl) 25 - 50 mg PO Q6H PRN PRN Reason: Itching Docusate Sodium (Colace) 100 mg PO BID [facility] Last Admin: 06/02/16 08:32 Dose: 100 mg Enoxaparin Sodium (Lovenox) 100 mg SUBCUT Q12H [facility] Last Admin: 06/02/16 08:33 Dose: 100 mg Folic Acid (Folic Acid) 1 mg PO DAILY [facility] Last Admin: 06/02/16 08:33 Dose: 1 mg Hydromorphone HCl (Dilaudid) 1 mg IVPUSH Q3H PRN PRN Reason: Pain Last Admin: 06/02/16 06:50 Dose: 1 mg Lactated Ringer's (Ringers, Lactated) 1,000 mls @ 100 mls/hr IV ASDIRECTED [facility] Last Admin: 06/02/16 00:44 Dose: 100 mls/hr Metoprolol Tartrate (Lopressor) 25 mg PO BIDMEALS [facility] Last Admin: 06/02/16 08:31 Dose: 25 mg Nicotine (Habitrol) 7 mg TRDERM DAILY [facility] Ondansetron HCl (Zofran) 4 mg IV Q6HR PRN PRN Reason: NAUSEA/VOMITING Oxycodone HCl (Oxycodone) 5 - 10 mg PO Q4H PRN PRN Reason: Pain Last Admin: 06/02/16 09:47 Dose: 10 mg Oxycodone HCl (Oxycontin) 20 mg PO Q12HR [facility] Last Admin: 06/02/16 08:33 Dose: 20 mg Isoniazid 300 Mg 1 each PO DAILY [facility] Last Admin: 06/02/16 08:35 Dose: Not Given Fenofibrate Nanocrystallized 145 Mg 1 each PO BEDTIME [facility] Last Admin: 06/01/16 20:47 Dose: Not Given Pyridoxine HCl (Vitamin B6-Pyridoxine) 50 mg PO DAILY [facility] Last Admin: 06/02/16 08:32 Dose: 50 mg Scopolamine (Transderm-Scop) 1.5 mg TRDERM ONARRIVE [facility] Last Admin: 06/01/16 11:00 Dose: 1.5 mg Sodium Chloride (Saline Flush) 10 ml FLUSH ASDIRECTED PRN PRN Reason: Keep Vein Open Sodium Chloride (Saline Flush) 2.5 ml FLUSH ASDIRECTED PRN PRN Reason: Keep Vein Open Warfarin Sodium (Coumadin) 5 mg PO DAILY@1400 [facility] Discontinued Medications Acetaminophen (Tylenol Extra Strength) 1,000 mg PO ONARRIVE [facility] Last Admin: 06/01/16 11:00 Dose: 1,000 mg Enoxaparin Sodium (Lovenox) 100 mg SUBCUT DAILY [facility] Ephedrine Sulfate (Ephedrine Sulfate) Confirm Administered Dose 50 mg .ROUTE .STK-MED ONE Stop: 06/01/16 12:54 Famotidine (Pepcid) 40 mg IVPUSH ONARRIVE [facility] Last Admin: 06/01/16 11:00 Dose: 40 mg Fentanyl (Sublimaze) Confirm Administered Dose 100 mcg .ROUTE .STK-MED ONE Stop: 06/01/16 11:12 Ropivacaine 49.25 ml/Epinephrine HCl 0.5 mg/Clonidine HCl 80 mcg/ Sodium Chloride 100 mls @ 50 mls/hr INJECT ONETIME ONE Stop: 06/01/16 08:59 Last Admin: 06/01/16 15:33 Dose: Not Given Cefazolin Sodium/Dextrose 2 gm (/ Premix) 50 mls @ 100 mls/hr IV ONCALL [facility] Cefazolin Sodium/Dextrose 2 gm (/ Premix) 50 mls @ 100 mls/hr IV Q8H [facility] Stop: 06/02/16 04:29 Last Admin: 06/02/16 03:45 Dose: 100 mls/hr Midazolam HCl (Versed 1 Mg/Ml) Confirm Administered Dose 2 mg .ROUTE .STK-MED ONE Stop: 06/01/16 10:18 Midazolam HCl (Versed 1 Mg/Ml) Confirm Administered Dose 2 mg .ROUTE .STK-MED ONE Stop: 06/01/16 11:12 Morphine Sulfate (Morphine) 1 - 3 mg IVPUSH Q3H PRN PRN Reason: Pain Last Admin: 06/01/16 19:42 Dose: 3 mg Oxycodone HCl (Oxycontin) 20 mg PO ONARRIVE [facility] Last Admin: 06/01/16 11:00 Dose: 20 mg Propofol (Diprivan 20 Ml) Confirm Administered Dose 200 mg .ROUTE .STK-MED ONE Stop: 06/01/16 11:13 Propofol (Diprivan 20 Ml) Confirm Administered Dose 200 mg .ROUTE .STK-MED ONE Stop: 06/01/16 11:13 Propofol (Diprivan 20 Ml) Confirm Administered Dose 200 mg .ROUTE .STK-MED ONE Stop: 06/01/16 11:14 Propofol (Diprivan 20 Ml) Confirm Administered Dose 200 mg .ROUTE .STK-MED ONE Stop: 06/01/16 13:01 Propofol (Diprivan 20 Ml) Confirm Administered Dose 200 mg .ROUTE .STK-MED ONE Stop: 06/01/16 13:30 Tranexamic Acid (Cyklokapron) 4,000 mg IV SEECOMMENT [facility] Tranexamic Acid (Cyklokapron) Confirm Administered Dose 4,000 mg .ROUTE .STK- MED ONE Stop: 06/01/16 07:18 - Exam General: alert, oriented, cooperative Neck: supple Lungs: Clear to auscultation, Normal respiratory effort Cardiovascular: Regular Rate, Regular Rhythm Abdomen: bowel sounds present, soft, no tenderness, no distension Extremities: no edema, normal pulses Wound/Incisions: dressing dry and intact Psy/Mental Status: alert, normal affect, normal mood Consult PN Assessment/Plan Procedures: Procedures ASSAY OF AMYLASE (04/11/16) ASSAY OF CK (CPK) (03/13/14) ASSAY OF LIPASE (04/11/16) ASSAY OF TROPONIN QUANT (05/08/15) CHEST X-RAY 1 VIEW FRONTAL (05/08/15) COMPLETE CBC W/AUTO DIFF WBC (04/11/16) COMPREHEN METABOLIC PANEL (04/11/16) CREATINE MB FRACTION (03/13/14) CT ABD & PELV W/CONTRAST (04/11/16) CT THORAX W/DYE (11/09/13) ELECTROCARDIOGRAM TRACING (05/08/15) EMERGENCY DEPT VISIT (04/11/16) EMERGENCY DEPT VISIT (11/24/14) EMERGENCY DEPT VISIT (03/13/14) FIBRIN DEGRADATION QUANT (05/08/15) GLYCOSYLATED HEMOGLOBIN TEST (03/13/14) IIV3 VACC NO PRSV 0.5 ML IM (03/13/14) KNEE ARTHROSCOPY/SURGERY (07/12/15) LIPID PANEL (03/13/14) MRI JNT OF LWR EXTRE W/O DYE (05/06/16) PROTHROMBIN TIME (04/11/16) ROUTINE VENIPUNCTURE (04/11/16) THER/PROPH/DIAG INJ IV PUSH (04/11/16) X-RAY EXAM KNEE 4 OR MORE (03/26/16) X-RAY EXAM OF KNEE 3 (01/31/15) (1) S/P total knee arthroplasty SNOMED Code(s): 2360380528469, 242186212, 9157310516623 Code(s): Z96.659 - PRESENCE OF UNSPECIFIED ARTIFICIAL KNEE JOINT Current Visit: Yes Qualifiers: Laterality: right Qualified Code(s): Z96.651 - Presence of right artificial knee joint (2) Aortic valve replaced SNOMED Code(s): 6060768459025, 087862809, 284807764, 3638875624592 Code(s): Z95.2 - PRESENCE OF PROSTHETIC HEART VALVE Current Visit: Yes (3) VICKY on CPAP SNOMED Code(s): 02745254 Code(s): G47.33 - OBSTRUCTIVE SLEEP APNEA (ADULT) (PEDIATRIC); Z99.89 - DEPENDENCE ON OTHER ENABLING MACHINES AND DEVICES Current Visit: Yes (4) Anticoagulated on Coumadin SNOMED Code(s): 43293355 Code(s): Z51.81 - ENCOUNTER FOR THERAPEUTIC DRUG LEVEL MONITORING; Z79.01 - RESIDENTIAL (CURRENT) USE OF ANTICOAGULANTS Current Visit: No Problem List Initiated/Reviewed/Updated: Yes My Orders last 24 hours: My Active Orders 06/01/16 17:00 Metoprolol Tartrate [Lopressor] 25 mg PO BIDMEALS 06/01/16 21:00 Patient's Own Medication [Ptom] 1 each PO BEDTIME 06/02/16 09:00 Enoxaparin [Lovenox] 100 mg SUBCUT Q12H Folic Acid 1 mg PO DAILY Patient's Own Medication [Ptom] 1 each PO DAILY Vitamin B6-pyridOXINE 50 mg PO DAILY 06/02/16 10:00 Nicotine [Habitrol] 7 mg TRDERM DAILY 06/03/16 05:00 BMP [BASIC METABOLIC PANEL,BMP] [CHEM] DAILY 06/04/16 05:00 BMP [BASIC METABOLIC PANEL,BMP] [CHEM] DAILY Plan: This 45 year old male admitted with R TKA pmh of aortic valve replacement, VICKY, and anticoagulation on Coumadin 1. Aortic valve replacement and anticoagulation: Would recommend following Dr. Mcgill's instructions for restarting anticoagulation, Lovenox BID 1 mg/kg 24 -48 hrs post operatively and then Coumadin 48 hours after surgery. Monitor INR once therapy starts. Continue Metoprolol. 2. Latent TB: Continue INH daily 3. VICKY: CPAP at bedside. 4. Tobacco use: Requesting Nicotine patch, Ortho ok with this, will order 7 mg patch, smokes 3-4 cigarettes daily., Will order smoking cessation as well. VTE: As per Dr Mcgill's recommendations and when deemed appropriate to start from Orthopedics.
[2016-06-02] MEDS: Nicotine 7 MG/24 Hr Patch TRDERM SCH (10:14)
[2016-06-02] MEDS ORDERED: Warfarin 5 MG Tab PO SCH (14:00)
--- NOTE | 2016-06-02 14:51 | PCM.SN ---
- Free Text/Narrative Note: Patient seen and examined. Agree with ortho progress note. Patient did have increased pain overnight. He did take Percocet 10/325 prior to surgery. His pain medications have recently been switched. His oxycodone dosage has been increased and he has been switched to IV dilaudid. He was up with physical therapy earlier today. He did do some walking in the [place]. Exam of the right lower extremity shows a dressing to be dry and intact. He has no calf tenderness. AT/EHL/gastroc 5/5. Sensation grossly intact. DP/PT pulses 2+. 1. continue current pain management 2. Lovenox/Coumadin per hospitalist for h/o aortic valve replacement-- appreciate their assistance with medical management 3. continue PT 4. plan d/charge home tomorrow
[2016-06-02] MEDS: Fenofibrate Nanocrystallized 145 MG PO SCH (21:07)
[2016-06-03] MEDS: oxyCODONE 5 MG Tab PO PRN ×4 (01:28→13:32)
[2016-06-03] MEDS: Acetaminophen 500 MG Tab PO SCH ×3 (01:56→13:32)
[2016-06-03] MEDS: HYDROmorphone 1 MG/ML Syringe IVPUSH PRN ×2 (02:52→06:06)
[2016-06-03 05:03] LABS: CHLORIDE,CL 101 mmol/L (98-110); SODIUM,NA 136 mmol/L (136-146)
--- NOTE | 2016-06-03 07:52 | PCM.SURGPN ---
- General Info Date of Service: 06/03/16 Date of Surgery/Procedure: 06/01/16 POD#: 2 Functional Status: Reports: pain controlled, tolerating diet, ambulating, urinating - Review of Systems General: Reports: No Symptoms Pulmonary: Reports: no symptoms Cardiovascular: Reports: No Symptoms Gastrointestinal: Reports: No symptoms Genitourinary: Reports: no symptoms Musculoskeletal: Reports: leg pain, joint pain, joint swelling Neurological: Reports: No Symptoms Psychiatric: Reports: no symptoms - Patient Data Vitals - most recent: Last Vital Signs Temp 36.8 C 06/03/16 04:00 Pulse 96 06/03/16 04:00 Resp 18 06/03/16 04:00 BP 135/83 06/03/16 04:00 Pulse Ox 95 06/03/16 04:00 Weight - most recent: 102 kg I&O - last 24 hours: Intake & Output 06/02/16 06/03/16 06/03/16 22:59 06:59 14:59 Intake Total 1100 1200 Output Total 1750 2600 Balance -650 -1400 Lab Results last 24 hrs: Laboratory Results - last 24 hr 06/03/16 06/03/16 06/03/16 Range/Units 04:26 04:26 04:26 Hgb 12.8 L (13.0-17.0) g/dL Hct 36.1 L (38.0-50.0) % INR 1.01 (0.86-1.11) Sodium 136 (136-146) mmol/L Potassium 4.0 (3.5-5.1) mmol/L Chloride 101 (98-110) mmol/L Carbon Dioxide 24 (21-31) mmol/L BUN 7 (6.0-23.0) mg/dL Creatinine 0.8 (0.6-1.5) mg/dL Est Cr Clr Drug Dosing 114.42 mL/min Estimated GFR (MDRD) > 60.0 ml/min Glucose 116 H (60-110) mg/dL Calcium 8.9 (8.8-10.8) mg/dL Med Orders - Current: Current Medications Acetaminophen (Tylenol Extra Strength) 1,000 mg PO Q6H [facility] Last Admin: 06/03/16 01:56 Dose: 1,000 mg Al Hydroxide/Mg Hydroxide (Mag-Al Plus) 30 ml PO Q4H PRN PRN Reason: indigestion Bisacodyl (Dulcolax) 10 mg RECTAL DAILY PRN PRN Reason: Constipation Diphenhydramine HCl (Benadryl) 25 - 50 mg PO Q6H PRN PRN Reason: Itching Docusate Sodium (Colace) 100 mg PO BID [facility] Last Admin: 06/02/16 21:07 Dose: 100 mg Enoxaparin Sodium (Lovenox) 100 mg SUBCUT Q12H [facility] Last Admin: 06/02/16 21:07 Dose: 100 mg Folic Acid (Folic Acid) 1 mg PO DAILY [facility] Last Admin: 06/02/16 08:33 Dose: 1 mg Hydromorphone HCl (Dilaudid) 1 mg IVPUSH Q3H PRN PRN Reason: Pain Last Admin: 06/03/16 06:06 Dose: 1 mg Metoprolol Tartrate (Lopressor) 25 mg PO BIDMEALS [facility] Last Admin: 06/02/16 17:07 Dose: 25 mg Nicotine (Habitrol) 7 mg TRDERM DAILY [facility] Last Admin: 06/02/16 10:14 Dose: 7 mg Ondansetron HCl (Zofran) 4 mg IV Q6HR PRN PRN Reason: NAUSEA/VOMITING Oxycodone HCl (Oxycontin) 20 mg PO Q12HR [facility] Last Admin: 06/02/16 21:07 Dose: 20 mg Oxycodone HCl (Oxycodone) 20 mg PO Q4H PRN PRN Reason: Pain Last Admin: 06/03/16 05:29 Dose: 20 mg Isoniazid 300 Mg 1 each PO DAILY [facility] Last Admin: 06/02/16 08:35 Dose: Not Given Fenofibrate Nanocrystallized 145 Mg 1 each PO BEDTIME [facility] Last Admin: 06/02/16 21:07 Dose: Not Given Pyridoxine HCl (Vitamin B6-Pyridoxine) 50 mg PO DAILY [facility] Last Admin: 06/02/16 08:32 Dose: 50 mg Scopolamine (Transderm-Scop) 1.5 mg TRDERM ONARRIVE [facility] Last Admin: 06/01/16 11:00 Dose: 1.5 mg Sodium Chloride (Saline Flush) 10 ml FLUSH ASDIRECTED PRN PRN Reason: Keep Vein Open Sodium Chloride (Saline Flush) 2.5 ml FLUSH ASDIRECTED PRN PRN Reason: Keep Vein Open Warfarin Sodium (Coumadin) 5 mg PO DAILY@1400 [facility] Last Admin: 06/02/16 13:20 Dose: 5 mg Discontinued Medications Acetaminophen (Tylenol Extra Strength) 1,000 mg PO ONARRIVE [facility] Last Admin: 06/01/16 11:00 Dose: 1,000 mg Enoxaparin Sodium (Lovenox) 100 mg SUBCUT DAILY [facility] Ephedrine Sulfate (Ephedrine Sulfate) Confirm Administered Dose 50 mg .ROUTE .STK-MED ONE Stop: 06/01/16 12:54 Famotidine (Pepcid) 40 mg IVPUSH ONARRIVE [facility] Last Admin: 06/01/16 11:00 Dose: 40 mg Fentanyl (Sublimaze) Confirm Administered Dose 100 mcg .ROUTE .STK-MED ONE Stop: 06/01/16 11:12 Ropivacaine 49.25 ml/Epinephrine HCl 0.5 mg/Clonidine HCl 80 mcg/ Sodium Chloride 100 mls @ 50 mls/hr INJECT ONETIME ONE Stop: 06/01/16 08:59 Last Admin: 06/01/16 15:33 Dose: Not Given Lactated Ringer's (Ringers, Lactated) 1,000 mls @ 100 mls/hr IV ASDIRECTED [facility] Last Admin: 06/02/16 00:44 Dose: 100 mls/hr Cefazolin Sodium/Dextrose 2 gm (/ Premix) 50 mls @ 100 mls/hr IV ONCALL [facility] Cefazolin Sodium/Dextrose 2 gm (/ Premix) 50 mls @ 100 mls/hr IV Q8H [facility] Stop: 06/02/16 04:29 Last Admin: 06/02/16 03:45 Dose: 100 mls/hr Midazolam HCl (Versed 1 Mg/Ml) Confirm Administered Dose 2 mg .ROUTE .STK-MED ONE Stop: 06/01/16 10:18 Midazolam HCl (Versed 1 Mg/Ml) Confirm Administered Dose 2 mg .ROUTE .STK-MED ONE Stop: 06/01/16 11:12 Morphine Sulfate (Morphine) 1 - 3 mg IVPUSH Q3H PRN PRN Reason: Pain Last Admin: 06/01/16 19:42 Dose: 3 mg Oxycodone HCl (Oxycontin) 20 mg PO ONARRIVE [facility] Last Admin: 06/01/16 11:00 Dose: 20 mg Oxycodone HCl (Oxycodone) 5 - 10 mg PO Q4H PRN PRN Reason: Pain Last Admin: 06/02/16 09:47 Dose: 10 mg Propofol (Diprivan 20 Ml) Confirm Administered Dose 200 mg .ROUTE .STK-MED ONE Stop: 06/01/16 11:13 Propofol (Diprivan 20 Ml) Confirm Administered Dose 200 mg .ROUTE .STK-MED ONE Stop: 06/01/16 11:13 Propofol (Diprivan 20 Ml) Confirm Administered Dose 200 mg .ROUTE .STK-MED ONE Stop: 06/01/16 11:14 Propofol (Diprivan 20 Ml) Confirm Administered Dose 200 mg .ROUTE .STK-MED ONE Stop: 06/01/16 13:01 Propofol (Diprivan 20 Ml) Confirm Administered Dose 200 mg .ROUTE .STK-MED ONE Stop: 06/01/16 13:30 Tranexamic Acid (Cyklokapron) 4,000 mg IV SEECOMMENT [facility] Tranexamic Acid (Cyklokapron) Confirm Administered Dose 4,000 mg .ROUTE .STK- MED ONE Stop: 06/01/16 07:18 - Exam Wound/Incisions: dressing dry and intact General: alert, oriented HEENT: Pupils equal, Pupils reactive Lungs: Normal respiratory effort Cardiovascular: Regular Rate Abdomen: soft Extremities: other (RLE gastroc, EHL and anterior tibialis strength 5/5. Sensation intact distally. ) Neurological: no new focal deficit Psy/Mental Status: alert, normal affect, normal mood - Problem List Review Problem List Initiated/Reviewed/Updated: Yes - My Orders Last 24 Hours: Active Orders 24 hr Category Date Time Status Smoking Cessation Education [RC] ASDIRECTED Care 06/02/16 09:54 Active Urinary Catheter Removal [RC] Per Unit Routine Care 06/02/16 07:57 Active BMP [BASIC METABOLIC PANEL,BMP] [CHEM] DAILY Lab 06/04/16 05:00 Ordered HEMOGLOBIN/HEMATOCRIT,HH [HEME] DAILY Lab 06/04/16 07:00 Ordered Enoxaparin [Lovenox] Med 06/02/16 09:00 Active 100 mg SUBCUT Q12H Folic Acid Med 06/02/16 09:00 Active 1 mg PO DAILY Nicotine [Habitrol] Med 06/02/16 10:00 Active 7 mg TRDERM DAILY Patient's Own Medication [Ptom] Med 06/02/16 09:00 Active 1 each PO DAILY Sodium Chloride 0.9% [Saline Flush] Med 06/02/16 07:57 Active 10 ml FLUSH ASDIRECTED PRN Sodium Chloride 0.9% [Saline Flush] Med 06/02/16 07:57 Active 2.5 ml FLUSH ASDIRECTED PRN Vitamin B6-pyridOXINE Med 06/02/16 09:00 Active 50 mg PO DAILY Warfarin [Coumadin] Med 06/02/16 14:00 Active 5 mg PO DAILY@1400 oxyCODONE Med 06/02/16 11:11 Active 20 mg PO Q4H PRN Convert IV to Saline Lock [OM.PC] Routine Oth 06/02/16 07:57 Ordered Medication Orders Acetaminophen (Tylenol Extra Strength) 1,000 mg PO Q6H [facility] Last Admin: 06/03/16 01:56 Dose: 1,000 mg Admin: 06/02/16 19:40 Dose: 1,000 mg Admin: 06/02/16 13:19 Dose: 1,000 mg Admin: 06/02/16 08:32 Dose: 1,000 mg Admin: 06/02/16 02:12 Dose: 1,000 mg Admin: 06/01/16 19:27 Dose: 1,000 mg Admin: 06/01/16 15:00 Dose: 1,000 mg Al Hydroxide/Mg Hydroxide (Mag-Al Plus) 30 ml PO Q4H PRN PRN Reason: indigestion Bisacodyl (Dulcolax) 10 mg RECTAL DAILY PRN PRN Reason: Constipation Diphenhydramine HCl (Benadryl) 25 - 50 mg PO Q6H PRN PRN Reason: Itching Docusate Sodium (Colace) 100 mg PO BID [facility] Last Admin: 06/02/16 21:07 Dose: 100 mg Admin: 06/02/16 08:32 Dose: 100 mg Admin: 06/01/16 20:18 Dose: 100 mg Enoxaparin Sodium (Lovenox) 100 mg SUBCUT Q12H [facility] Last Admin: 06/02/16 21:07 Dose: 100 mg Admin: 06/02/16 08:33 Dose: 100 mg Folic Acid (Folic Acid) 1 mg PO DAILY [facility] Last Admin: 06/02/16 08:33 Dose: 1 mg Hydromorphone HCl (Dilaudid) 1 mg IVPUSH Q3H PRN PRN Reason: Pain Last Admin: 06/03/16 06:06 Dose: 1 mg Admin: 06/03/16 02:52 Dose: 1 mg Admin: 06/02/16 23:38 Dose: 1 mg Admin: 06/02/16 20:30 Dose: 1 mg Admin: 06/02/16 17:30 Dose: 1 mg Admin: 06/02/16 13:54 Dose: 1 mg Admin: 06/02/16 10:47 Dose: 1 mg Admin: 06/02/16 06:50 Dose: 1 mg Admin: 06/02/16 03:50 Dose: 1 mg Admin: 06/02/16 00:50 Dose: 1 mg Admin: 06/01/16 21:50 Dose: 1 mg Metoprolol Tartrate (Lopressor) 25 mg PO BIDMEALS [facility] Last Admin: 06/02/16 17:07 Dose: 25 mg Admin: 06/02/16 08:31 Dose: 25 mg Admin: 06/01/16 16:41 Dose: 25 mg Nicotine (Habitrol) 7 mg TRDERM DAILY [facility] Last Admin: 06/02/16 10:14 Dose: 7 mg Ondansetron HCl (Zofran) 4 mg IV Q6HR PRN PRN Reason: NAUSEA/VOMITING Oxycodone HCl (Oxycontin) 20 mg PO Q12HR [facility] Last Admin: 06/02/16 21:07 Dose: 20 mg Admin: 06/02/16 08:33 Dose: 20 mg Admin: 06/01/16 20:18 Dose: 20 mg Oxycodone HCl (Oxycodone) 20 mg PO Q4H PRN PRN Reason: Pain Last Admin: 06/03/16 05:29 Dose: 20 mg Admin: 06/03/16 01:28 Dose: 20 mg Admin: 06/02/16 19:50 Dose: 20 mg Admin: 06/02/16 15:28 Dose: 20 mg Admin: 06/02/16 11:22 Dose: 20 mg Isoniazid 300 Mg 1 each PO DAILY [facility] Last Admin: 06/02/16 08:35 Dose: Fenofibrate Nanocrystallized 145 Mg 1 each PO BEDTIME [facility] Last Admin: 06/02/16 21:07 Dose: Admin: 06/01/16 20:47 Dose: Pyridoxine HCl (Vitamin B6-Pyridoxine) 50 mg PO DAILY [facility] Last Admin: 06/02/16 08:32 Dose: 50 mg Scopolamine (Transderm-Scop) 1.5 mg TRDERM ONARRIVE [facility] Last Admin: 06/01/16 11:00 Dose: 1.5 mg Sodium Chloride (Saline Flush) 10 ml FLUSH ASDIRECTED PRN PRN Reason: Keep Vein Open Sodium Chloride (Saline Flush) 2.5 ml FLUSH ASDIRECTED PRN PRN Reason: Keep Vein Open Warfarin Sodium (Coumadin) 5 mg PO DAILY@1400 [facility] Last Admin: 06/02/16 13:20 Dose: 5 mg - Assessment Assessment (Free Text/Narrative):: Patient awake in bed this AM Pain better controlled last night Tolerating diet VSS UO 4350 mL Hgb 12.8 - Plan Plan (Free Text/Narrative):: Continue PT Continue pain management Encourage PO pain medications Will see how he does today with pain control, possible D/C home tomorrow
[2016-06-03] MEDS: oxyCODONE ER 20 MG TAB.ER PO SCH (08:35)
[2016-06-03] MEDS: Docusate Sodium 100 MG Cap PO SCH (08:36)
[2016-06-03] MEDS: Vitamin B6-pyridOXINE 50 MG Tab PO SCH (08:36)
[2016-06-03] MEDS: Metoprolol Tartrate 25 MG Tab PO SCH (08:36)
[2016-06-03] MEDS: Folic Acid 1 MG Tab PO SCH (08:36)
[2016-06-03] MEDS: Enoxaparin 100 MG/1 ML Syringe SUBCUT SCH (08:38)
[2016-06-03] MEDS: Nicotine 7 MG/24 Hr Patch TRDERM SCH (10:26)
--- NOTE | 2016-06-03 12:09 | PCM.CONSN ---
- General Info Date of Service: 06/03/16 Admission Dx/Problem (Free Text): Admission Diagnosis/Problem Admission Diagnosis/Problem Replacement of total knee joint Subjective Update: Doing well this am, pain better controlled today. No chest pain or SOB. Functional Status: Reports: pain controlled, tolerating diet, ambulating, urinating - Review of Systems General: Reports: No Symptoms. Denies: Fever Pulmonary: Reports: no symptoms. Denies: shortness of breath, cough, sputum Cardiovascular: Reports: No Symptoms. Denies: Chest Pain, Palpitations Gastrointestinal: Reports: No symptoms. Denies: Nausea, Vomiting - Patient Data Vitals - most recent: Last Vital Signs Temp 99.3 F 06/03/16 08:00 Pulse 94 06/03/16 08:36 Resp 16 06/03/16 08:00 BP 138/70 06/03/16 08:36 Pulse Ox 96 06/03/16 08:00 Weight - most recent: 102 kg I&O - last 24 hours: Intake & Output 06/02/16 06/03/16 06/03/16 22:59 06:59 14:59 Intake Total 1100 1200 Output Total 1750 2600 Balance -650 -1400 Lab Results last 24 hrs: Laboratory Results - last 24 hr 06/03/16 06/03/16 06/03/16 Range/Units 04:26 04:26 04:26 Hgb 12.8 L (13.0-17.0) g/dL Hct 36.1 L (38.0-50.0) % INR 1.01 (0.86-1.11) Sodium 136 (136-146) mmol/L Potassium 4.0 (3.5-5.1) mmol/L Chloride 101 (98-110) mmol/L Carbon Dioxide 24 (21-31) mmol/L BUN 7 (6.0-23.0) mg/dL Creatinine 0.8 (0.6-1.5) mg/dL Est Cr Clr Drug Dosing 114.42 mL/min Estimated GFR (MDRD) > 60.0 ml/min Glucose 116 H (60-110) mg/dL Calcium 8.9 (8.8-10.8) mg/dL Med Orders - Current: Current Medications Acetaminophen (Tylenol Extra Strength) 1,000 mg PO Q6H RICKEY Last Admin: 04/12/17 08:35 Dose: 1,000 mg Al Hydroxide/Mg Hydroxide (Mag-Al Plus) 30 ml PO Q4H PRN PRN Reason: indigestion Bisacodyl (Dulcolax) 10 mg RECTAL DAILY PRN PRN Reason: Constipation Diphenhydramine HCl (Benadryl) 25 - 50 mg PO Q6H PRN PRN Reason: Itching Docusate Sodium (Colace) 100 mg PO BID [facility] Last Admin: 06/03/16 08:36 Dose: 100 mg Enoxaparin Sodium (Lovenox) 100 mg SUBCUT Q12H [facility] Last Admin: 06/03/16 08:38 Dose: 100 mg Folic Acid (Folic Acid) 1 mg PO DAILY [facility] Last Admin: 06/03/16 08:36 Dose: 1 mg Hydromorphone HCl (Dilaudid) 1 mg IVPUSH Q3H PRN PRN Reason: Pain Last Admin: 06/03/16 06:06 Dose: 1 mg Metoprolol Tartrate (Lopressor) 25 mg PO BIDMEALS [facility] Last Admin: 06/03/16 08:36 Dose: 25 mg Nicotine (Habitrol) 7 mg TRDERM DAILY [facility] Last Admin: 06/03/16 10:26 Dose: 7 mg Ondansetron HCl (Zofran) 4 mg IV Q6HR PRN PRN Reason: NAUSEA/VOMITING Oxycodone HCl (Oxycontin) 20 mg PO Q12HR [facility] Last Admin: 06/03/16 08:35 Dose: 20 mg Oxycodone HCl (Oxycodone) 20 mg PO Q4H PRN PRN Reason: Pain Last Admin: 06/03/16 09:29 Dose: 20 mg Isoniazid 300 Mg 1 each PO DAILY [facility] Last Admin: 06/03/16 11:18 Dose: 1 each Fenofibrate Nanocrystallized 145 Mg 1 each PO BEDTIME [facility] Last Admin: 06/02/16 21:07 Dose: Not Given Pyridoxine HCl (Vitamin B6-Pyridoxine) 50 mg PO DAILY [facility] Last Admin: 06/03/16 08:36 Dose: 50 mg Scopolamine (Transderm-Scop) 1.5 mg TRDERM ONARRIVE [facility] Last Admin: 06/01/16 11:00 Dose: 1.5 mg Sodium Chloride (Saline Flush) 10 ml FLUSH ASDIRECTED PRN PRN Reason: Keep Vein Open Sodium Chloride (Saline Flush) 2.5 ml FLUSH ASDIRECTED PRN PRN Reason: Keep Vein Open Warfarin Sodium (Coumadin) 10 mg PO DAILY@1400 [facility] Discontinued Medications Acetaminophen (Tylenol Extra Strength) 1,000 mg PO ONARRIVE [facility] Last Admin: 06/01/16 11:00 Dose: 1,000 mg Enoxaparin Sodium (Lovenox) 100 mg SUBCUT DAILY [facility] Ephedrine Sulfate (Ephedrine Sulfate) Confirm Administered Dose 50 mg .ROUTE .STK-MED ONE Stop: 06/01/16 12:54 Famotidine (Pepcid) 40 mg IVPUSH ONARRIVE [facility] Last Admin: 06/01/16 11:00 Dose: 40 mg Fentanyl (Sublimaze) Confirm Administered Dose 100 mcg .ROUTE .STK-MED ONE Stop: 06/01/16 11:12 Ropivacaine 49.25 ml/Epinephrine HCl 0.5 mg/Clonidine HCl 80 mcg/ Sodium Chloride 100 mls @ 50 mls/hr INJECT ONETIME ONE Stop: 06/01/16 08:59 Last Admin: 06/01/16 15:33 Dose: Not Given Lactated Ringer's (Ringers, Lactated) 1,000 mls @ 100 mls/hr IV ASDIRECTED [facility] Last Admin: 06/02/16 00:44 Dose: 100 mls/hr Cefazolin Sodium/Dextrose 2 gm (/ Premix) 50 mls @ 100 mls/hr IV ONCALL [facility] Cefazolin Sodium/Dextrose 2 gm (/ Premix) 50 mls @ 100 mls/hr IV Q8H [facility] Stop: 06/02/16 04:29 Last Admin: 06/02/16 03:45 Dose: 100 mls/hr Midazolam HCl (Versed 1 Mg/Ml) Confirm Administered Dose 2 mg .ROUTE .STK-MED ONE Stop: 06/01/16 10:18 Midazolam HCl (Versed 1 Mg/Ml) Confirm Administered Dose 2 mg .ROUTE .STK-MED ONE Stop: 06/01/16 11:12 Morphine Sulfate (Morphine) 1 - 3 mg IVPUSH Q3H PRN PRN Reason: Pain Last Admin: 06/01/16 19:42 Dose: 3 mg Oxycodone HCl (Oxycontin) 20 mg PO ONARRIVE [facility] Last Admin: 06/01/16 11:00 Dose: 20 mg Oxycodone HCl (Oxycodone) 5 - 10 mg PO Q4H PRN PRN Reason: Pain Last Admin: 06/02/16 09:47 Dose: 10 mg Propofol (Diprivan 20 Ml) Confirm Administered Dose 200 mg .ROUTE .STK-MED ONE Stop: 06/01/16 11:13 Propofol (Diprivan 20 Ml) Confirm Administered Dose 200 mg .ROUTE .STK-MED ONE Stop: 06/01/16 11:13 Propofol (Diprivan 20 Ml) Confirm Administered Dose 200 mg .ROUTE .STK-MED ONE Stop: 06/01/16 11:14 Propofol (Diprivan 20 Ml) Confirm Administered Dose 200 mg .ROUTE .STK-MED ONE Stop: 06/01/16 13:01 Propofol (Diprivan 20 Ml) Confirm Administered Dose 200 mg .ROUTE .STK-MED ONE Stop: 06/01/16 13:30 Tranexamic Acid (Cyklokapron) 4,000 mg IV SEECOMMENT [facility] Tranexamic Acid (Cyklokapron) Confirm Administered Dose 4,000 mg .ROUTE .STK- MED ONE Stop: 06/01/16 07:18 Warfarin Sodium (Coumadin) 5 mg PO DAILY@1400 [facility] Last Admin: 06/02/16 13:20 Dose: 5 mg - Exam General: alert, oriented Lungs: Clear to auscultation, Normal respiratory effort Cardiovascular: Regular Rate, Regular Rhythm, Other (mechanical click) Abdomen: bowel sounds present, soft, no tenderness, no distension Consult PN Assessment/Plan Procedures: Procedures ASSAY OF AMYLASE (04/11/16) ASSAY OF CK (CPK) (03/13/14) ASSAY OF LIPASE (04/11/16) ASSAY OF TROPONIN QUANT (05/08/15) CHEST X-RAY 1 VIEW FRONTAL (05/08/15) COMPLETE CBC W/AUTO DIFF WBC (04/11/16) COMPREHEN METABOLIC PANEL (04/11/16) CREATINE MB FRACTION (03/13/14) CT ABD & PELV W/CONTRAST (04/11/16) CT THORAX W/DYE (11/09/13) ELECTROCARDIOGRAM TRACING (05/08/15) EMERGENCY DEPT VISIT (04/11/16) EMERGENCY DEPT VISIT (11/24/14) EMERGENCY DEPT VISIT (03/13/14) FIBRIN DEGRADATION QUANT (05/08/15) GLYCOSYLATED HEMOGLOBIN TEST (03/13/14) IIV3 VACC NO PRSV 0.5 ML IM (03/13/14) KNEE ARTHROSCOPY/SURGERY (07/12/15) LIPID PANEL (03/13/14) MRI JNT OF LWR EXTRE W/O DYE (05/06/16) PROTHROMBIN TIME (04/11/16) ROUTINE VENIPUNCTURE (04/11/16) THER/PROPH/DIAG INJ IV PUSH (04/11/16) X-RAY EXAM KNEE 4 OR MORE (03/26/16) X-RAY EXAM OF KNEE 3 (01/31/15) (1) S/P total knee arthroplasty SNOMED Code(s): 6668099039515, 115169951, 0613189131871 Code(s): Z96.659 - PRESENCE OF UNSPECIFIED ARTIFICIAL KNEE JOINT Current Visit: Yes Qualifiers: Laterality: right Qualified Code(s): Z96.651 - Presence of right artificial knee joint (2) Aortic valve replaced SNOMED Code(s): 7131295881166, 723800670, 834160501, 1299414966019 Code(s): Z95.2 - PRESENCE OF PROSTHETIC HEART VALVE Current Visit: Yes (3) VICKY on CPAP SNOMED Code(s): 08713568 Code(s): G47.33 - OBSTRUCTIVE SLEEP APNEA (ADULT) (PEDIATRIC); Z99.89 - DEPENDENCE ON OTHER ENABLING MACHINES AND DEVICES Current Visit: Yes (4) Anticoagulated on Coumadin SNOMED Code(s): 69796953 Code(s): Z51.81 - ENCOUNTER FOR THERAPEUTIC DRUG LEVEL MONITORING; Z79.01 - SLEEP MEDICINE PHYSICIAN (CURRENT) USE OF ANTICOAGULANTS Current Visit: No Problem List Initiated/Reviewed/Updated: Yes My Orders last 24 hours: My Active Orders 06/04/16 05:00 BMP [BASIC METABOLIC PANEL,BMP] [CHEM] DAILY Plan: This 45 year old male admitted with R TKA pmh of aortic valve replacement, VICKY, and anticoagulation on Coumadin 1. Aortic valve replacement and anticoagulation: Continue Lovenox BID upon discharge, did write for over the weekend dosing and resuming hose dosing of Coumadin. Would recommend checking INR on Wednesday and PCP to adjust dosing for further Lovenox and COumadin. Continue Metoprolol. 2. Latent TB: Continue INH daily 3. VICKY: CPAP at bedside. 4. Tobacco use: Nicotine patch in place. VTE: Coumadin with Lovenox to bridge.
[2016-06-03 12:38] VITALS: BP 131/90
[2016-06-03] MEDS ORDERED: Warfarin 5 MG Tab PO SCH (14:00)
[2016-06-03] MEDS ORDERED: traMADol 50 MG Tab PO PRN (14:13)
--- NOTE | 2016-06-03 14:15 | PCM.SN ---
- Free Text/Narrative Note: Patient seen and examined. Agree with CARLITOS Banuelos note. Patient states pain better controlled today. Oxycodone increased to 20mg po q 4H as patient has an opiod tolerance due to preoperative use. Still with some breakthrough pain. Will add tramadol as well. Dressing intact. NVI. Will discharge home today. Patient has f/u with PT on Wednesday, encouraged to continue with HEP. Continue Lovenox through per hospitalist along with home Coumadin. F/u or contact PCP next week for further instruction. Advised to contact us if there are questions/concerns. Patient and agree with plan.
--- NOTE | 2016-06-04 10:28 | PCM.SN ---
- Free Text/Narrative Note: Discharge summary Dressing was changed prior to discharge See discharge plan for complete list of discharge medications and instructions Dictation#: [id number]
--- NOTE | 2016-06-05 05:14 | DISCH ---
DATE OF ADMISSION: 06/01/2016 DATE OF DISCHARGE: 06/03/2016 PRIMARY CARE PHYSICIAN: José Miguel Bunn MD ADMITTING DIAGNOSIS: Degenerative joint disease right knee tricompartmental OTHER DIAGNOSES: 1. Aortic valve replacement 2. Obstructive sleep apnea on CPAP 3. Anticoagulated on Coumadin DISCHARGE DIAGNOSES: 1. Status post right knee arthroplasty. 2. Aortic valve replacement. 3. Obstructive sleep apnea, on CPAP. 4. Anticoagulated on Coumadin. BRIEF HISTORY: The patient is a 45-year-old male, who has complained of persistent right knee pain. He has previously undergone a right knee arthroscopy, which did show a tear of the medial meniscus. Degenerative changes were found at the time of surgery as well. He did well initially, however, he developed increased pain in the knee. A repeat MRI did show a tear of the lateral meniscus. The patient does have a history of aortic valve replacement. He is on senior living anticoagulation. We elected to proceed with definitive treatment for his knee pain due to his medical conditions as well as degenerative changes in his knee. He failed conservative treatment. Surgical intervention was considered at that time. OPERATION: Right total knee arthroplasty. HOSPITAL COURSE: The patient was controlled via IV and PO pain medications during his hospital stay. The patient was given 2 doses of Ancef postoperatively for 24 hours antibiotic coverage. The patient was followed by hospitalist and physical therapy during his hospital stay. Upon discharge vital signs were stable. Discharge temperature was 36.2 degree Celsius. Hemoglobin on day of discharge was 12.8. Coumadin 10 mg PO daily and Lovenox 100 mg q12 hours was resumed on postop day #1 for DVT prophylaxis. Upon discharge, pain was fairly controlled with oral pain medications only. The patient is tolerating oral intake. He is ambulating with wheeled walker. The patient feels comfortable with discharge home today. DISCHARGE MEDICATIONS: 1. OxyContin 20 mg 2. Tylenol 500 mg 3. Colace 100 mg 4. Lovenox 100 mg 5. Oxycodone 20 mg 6. Tramadol 50 mg. DISCHARGE INSTRUCTIONS: 1. The patient will follow up in the clinic on June 11, 2016. This appointment has been made for the patient. 2. Outpatient physical therapy 2 to 3 times per week for 4 to 6 weeks. 3. Polar Care to the right knee as needed. 4. LUIS hose to the bilateral lower extremities, on in the morning and off in the evening. For complete medication reconciliation and discharge instructions, please refer to the patient's EHR. If the patient has questions or concerns prior to followup, he may call the clinic. JOSÉ MIGUEL MAYEN /[id number] MTDD
== END 2016-06-03 16:15 | disposition home or self-care (01) | DRG 470 ==
LOC: MW.MS 09:56
PROVIDERS: ADMIT Orthopaedic Surgery; ATTEND Orthopaedic Surgery
PROC: 0SRC0J9 Replacement of Right Knee Joint with Synthetic Substitute, Cemented, Open Approach (ICD-10-PCS; principal; 2016-06-01)
DX: M17.11 Unilateral primary osteoarthritis, right knee (principal); Z79.899 Other long term (current) drug therapy; Z95.2 Presence of prosthetic heart valve; Z79.01 Long term (current) use of anticoagulants; G47.33 Obstructive sleep apnea (adult) (pediatric); E66.9 Obesity, unspecified; Z68.34 Body mass index [BMI] 34.0-34.9, adult; M06.9 Rheumatoid arthritis, unspecified; F17.200 Nicotine dependence, unspecified, uncomplicated
CPT/HCPCS: 01402; 36415; 73560-26-RT; 73560-RT; 80048; 80053; 85014; 85018; 85025; 85610; 86850; 86900; 86901; 88304; 88311; 97110-GP; 97116-GP; 97162-GP; 97530-GP; A9270-GY; C1713; C1776; J0171; J0690; J0735; J1170; J1650; J2250; J2270; J2704; J2795; J3010; J7050; J7120

== ENCOUNTER → 2016-06-11 | Outpatient (CLI) | payer BC, OTHER ==
--- NOTE | 2016-06-11 12:32 | CR ---
EXAMINATION: Right knee HISTORY: Osteoarthritis COMPARISON: 06/01/2016 TECHNIQUE: 3 views FINDINGS/IMPRESSION: Right total knee hardware is demonstrated in stable position and alignment. Pos toperative soft tissue changes noted. No acute findings.
== END ==
LOC: MW.CHORTHO 08:20
PROVIDERS: ATTEND Physician Assistant
DX: M17.11 Unilateral primary osteoarthritis, right knee (principal); Z96.651 Presence of right artificial knee joint; Z98.890 Other specified postprocedural states; M79.89 Other specified soft tissue disorders
CPT/HCPCS: 73562-26-RT; 73562-RT

== ENCOUNTER 2017-07-01 16:46 | Emergency (ER) | payer BC, OTHER ==
--- NOTE | 2017-07-01 17:03 | EDM.PDOC ---
ED HPI GENERAL MEDICAL PROBLEM - General Chief Complaint: ENT Problem Stated Complaint: NOSE BLEED AND ON BLOOD THINNERS Time Seen by Provider: 07/01/17 16:55 Source of Information: Reports: Patient History Limitations: Reports: No Limitations - History of Present Illness INITIAL COMMENTS - FREE TEXT/NARRATIVE: HISTORY AND PHYSICAL: History of present illness: Patient is a 46-year-old male who presents to the emergency room with complaints of a nosebleed that has not stopped over the last 30 minutes. He states he takes Coumadin daily for cardiac valve repair. His PT/INR was checked on Wednesday and was out of 5. His primary care provider has adjusted his Coumadin. Today he did start having a nosebleed which she usually can manage with pressure alone. He states he did apply pressure but was unable to get the bleeding to stop when he would like go. Denies any recent injury, trauma or falls. Review of systems: As per history of present illness and below otherwise all systems reviewed and negative. Past medical history: As per history of present illness and as reviewed below otherwise noncontributory. Surgical history: As per history of present illness and as reviewed below otherwise noncontributory. Social history: No reported history of drug or alcohol abuse. Family history: As per history of present illness and as reviewed below otherwise noncontributory. Physical exam: General: Developed and well-nourished 46-year-old male. Alert and oriented. Nontoxic appearing and in no acute distress. HEENT: Atraumatic, normocephalic, pupils equal and reactive bilaterally, negative for conjunctival pallor or scleral icterus, mucous membranes moist, throat clear, neck supple, nontender, trachea midline. No drooling or trismus noted. No meningeal signs Lungs: Clear to auscultation, breath sounds equal bilaterally, chest nontender. Heart: S1S2, regular rate and rhythm without overt murmur Abdomen: Soft, nondistended, nontender. Negative for masses or hepatosplenomegaly. Negative for costovertebral tenderness. Pelvis: Stable nontender. Genitourinary: Deferred. Rectal: Deferred. Skin: Intact, warm, dry. No lesions or rashes noted. Extremities: Atraumatic, negative for cords or calf pain. Neurovascular unremarkable. Neuro: Awake, alert, oriented. Cranial nerves II through XII unremarkable. Cerebellum unremarkable. Motor and sensory unremarkable throughout. Exam nonfocal. Notes: Soft nasal clamp was applied upon patient arrival by the triage nurse. My internal nasal exam, I am unable to visualize a source of bleeding. I allowed the clamp to stay in place for approximately 15 minutes, upon reassessing the patient he no longer has any epistaxis. We discussed the option of doing a Rhino Rocket as his epistaxis may return due to his INR being so high. At this time he declines charged to home. I did inform him that if his nosebleed returns he should apply direct pressure and he may need the Rhino Rocket care and he voices understanding and is agreeable to plan of care. He denies any further questions at this time. Diagnostics: [] Therapeutics: Lidocaine with Epi (topical) analgesia Impression: Epistaxis, right naris Plan: 1. Avoid blowing your nose or performing any movements that apply pressure ( bending over with your head downward etc...) 2. Apply pressure if your nose begins to bleed. May need to return for the Rhino Rocket as we discussed. 3. Follow up with your primary care provider in the next 1-2 days; continue to have your INR evaluated/monitored. Return to the ED as needed as discussed. Definitive disposition and diagnosis as appropriate pending reevaluation and review of above. Onset: Today Duration: Minutes: Location: Reports: Head - Related Data Allergies Allergy/AdvReac Type Severity Reaction Status Date / Time No Known Allergies Allergy Verified 07/01/17 16:58 Home Meds: Home Meds Metoprolol Tartrate 25 mg PO BID 04/11/16 [History] Warfarin [Coumadin] 5 mg PO ASDIRECTED 04/11/16 [History] Fenofibrate Nanocrystallized [Fenofibrate] 145 mg PO BEDTIME 05/27/16 [History] Warfarin [Coumadin] 7.5 mg PO ASDIRECTED 06/03/16 [History] oxyCODONE 20 mg PO Q4H PRN #80 tablet 06/03/16 [Rx] oxyCODONE ER [OxyCONTIN] 20 mg PO Q12HR #20 tab.er 06/03/16 [Rx] Past Medical History HEENT History: Reports: None Cardiovascular History: Reports: Heart Valve Replacement Other Cardiovascular History: takes metoprolol since heart valve surgery, never hypertensive. Aortic valve, metallic mechanical Respiratory History: Reports: Sleep Apnea, TB Other Respiratory History: uses CPAP, was diagnosed with latent TB 3 months ago Gastrointestinal History: Reports: None. Denies: GERD, GI Bleed Genitourinary History: Reports: None Musculoskeletal History: Reports: Arthritis, Fracture Other Musculoskeletal History: hx of fx right arm Neurological History: Reports: Other (See Below) Other Neuro History: hx of motion sickness Psychiatric History: Reports: None Endocrine/Metabolic History: Reports: Obesity/BMI 30+ Hematologic History: Reports: Anticoagulation Therapy Immunologic History: Reports: None Oncologic (Cancer) History: Reports: None Dermatologic History: Reports: None - Infectious Disease History Infectious Disease History: Reports: Chicken Pox, TB - Past Surgical History Cardiovascular Surgical History: Reports: Valve Replacement Musculoskeletal Surgical History: Reports: Arthroscopic Knee Social & Family History - Family History Cardiac: Reports: Hypertension, [place] - Caffeine Use Caffeine Use: Reports: Coffee, Soda, Tea ED ROS ENT - Review of Systems Review Of Systems: ROS reveals no pertinent complaints other than HPI. ED EXAM, ENT - Physical Exam Exam: See Below (See dictation) Course - Vital Signs Last Recorded V/S: Last Vital Signs Temp 97.5 F 07/01/17 16:52 Pulse 87 07/01/17 16:52 Resp 18 07/01/17 16:52 BP 145/99 H 07/01/17 16:52 Pulse Ox 100 07/01/17 16:52 - Orders/Labs/Meds Meds: Medications Discontinued Medications Generic Name Dose Route Start Last Admin Trade Name Freq PRN Reason Stop Dose Admin Lidocaine/Epinephrine 20 ml 07/01/17 17:12 Xylocaine 1% With Epinephrine 1:100,000 INJECT 07/01/17 17:13 ONETIME ONE Departure - Departure Time of Disposition: 17:44 Disposition: Home, Self-Care 01 Clinical Impression: Epistaxis not due to trauma - Discharge Information Instructions: Nosebleed, Adult, Adng-cu-Soss Forms: ED Department Discharge Additional Instructions: General dischargeThe following information is given to patients seen in the emergency department who are being discharged to home. This information is to outline your options for follow-up care. We provide all patients seen in our emergency department with a follow-up referral. The need for follow-up, as well as the timing and circumstances, are variable depending upon the specifics of your emergency department visit. If you don't have a primary care physician on staff, we will provide you with a referral. We always advise you to contact your personal physician following an emergency department visit to inform them of the circumstance of the visit and for follow-up with them and/or the need for any referrals to a consulting specialist. The emergency department will also refer you to a specialist when appropriate. This referral assures that you have the opportunity for follow-up care with a specialist. All of these measure are taken in an effort to provide you with optimal care, which includes your follow-up. Under all circumstances we always encourage you to contact your private physician who remains a resource for coordinating your care. When calling for follow-up care, please make the office aware that this follow-up is from your recent emergency room visit. If for any reason you are refused follow-up, please contact the [facility] Emergency Department at and asked to speak to the emergency department charge nurse. [facility] [address] [place] [id number] 1. Avoid blowing your nose or performing any movements that apply pressure ( bending over with your head downward etc...) 2. Apply pressure if your nose begins to bleed. May need to return for the Rhino Rocket as we discussed. 3. Follow up with your primary care provider in the next 1-2 days; continue to have your INR evaluated/monitored. Return to the ED as needed as discussed.
[2017-07-01] MEDS ORDERED: Lidocaine 1% with EPINEPHrine 1:100,000 20 ML MDV INJECT ONE (17:12)
[2017-07-01 18:10] VITALS: BP 139/96
== END 2017-07-01 18:05 | disposition home or self-care (01) ==
LOC: MW.ED 16:46
DX: R04.0 Epistaxis (principal); Z79.899 Other long term (current) drug therapy
CPT/HCPCS: 99283

== ENCOUNTER 2018-10-19 14:29 | Inpatient (IN) | payer BC ==
--- NOTE | 2018-10-19 14:38 | EDM.PDOC ---
ED HPI GENERAL MEDICAL PROBLEM - General Stated Complaint: CHEST PAIN Time Seen by Provider: 10/19/18 14:30 Source of Information: Reports: Patient History Limitations: Reports: No Limitations - History of Present Illness INITIAL COMMENTS - FREE TEXT/NARRATIVE: HISTORY AND PHYSICAL: History of present illness: Patient is a 48-year-old male presents to the ED today with concern of mid sternal chest pain since yesterday. 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 Patient states he has a mechanical valve and he is on warfarin. Patient states his INR yesterday was 3.1. Patient states he has not followed up with the cardiology in over 3 years and he is processes family and my not but he is unsure of who. Patient states his chest pain is worse when he stands up and better with rest. Patient does state he gets dizzy with standing and moving. Patient denies any trauma or injury or any other symptoms or concerns. Patient denies fever, chills, chest pain, shortness of breath, or cough. Denies headache, neck stiff ness, change in vision, syncope, or near syncope. Denies nausea, vomiting, abdominal pain, diarrhea, constipation, or dysuria. Has not noted any blood in urine or stool. Patient has been eating and drinking appropriately. Review of systems: As per history of present illness and below otherwise all systems reviewed and negative. Past medical history: As per history of present illness and as reviewed below otherwise noncontributory. Surgical history: As per history of present illness and as reviewed below otherwise noncontributory. Social history: See social history for further information Family history: As per history of present illness and as reviewed below otherwise noncontributory. Physical exam: General: Patient is alert, oriented, and in no acute distress. Patient laying comfortably on exam table. HEENT: Atraumatic, normocephalic, pupils equal and reactive bilaterally, negative for conjunctival pallor or scleral icterus, mucous membranes moist, TMs normal bilaterally, throat clear, neck supple, nontender, trachea midline. No drooling or trismus noted. No meningeal signs. No hot potato voice noted. Lungs: Clear to auscultation, breath sounds equal bilaterally. Patient does have moderate pain with palpation of the sternum. Heart: S1S2, regular rate and rhythm without overt murmur Abdomen: Soft, nondistended, nontender. Negative for masses or hepatosplenomegaly. Negative for costovertebral tenderness. Pelvis: Stable nontender. Genitourinary: Deferred. Rectal: Tone intact. Hemoccult positive. Skin: Intact, warm, dry. No lesions or rashes noted. Extremities: Atraumatic, negative for cords or calf pain. Neurovascular unremarkable. Neuro: Awake, alert, oriented. Cranial nerves II through XII unremarkable. Cerebellum unremarkable. Motor and sensory unremarkable throughout. Exam nonfocal. Notes: Dr. Villarreal consulted on patient and will admit to observation Voices understanding and is agreeable to plan of care. Denies any further questions or concerns at this time. Diagnostics: CBC, CMP, UA, PT/INR, EKG, troponin, chest x-ray, type and screen, hemoccult, orthostatics Therapeutics: Saline, packed RBC Impression: Symptomatic Anemia Chest Pain Hemoccult positive Plan: 1. Admit to observation to Dr. Villarreal. Definitive disposition and diagnosis as appropriate pending reevaluation and review of above. Left Chest Pain Score (Numeric/FACES): 4 - Related Data Allergies Allergy/AdvReac Type Severity Reaction Status Date / Time No Known Allergies Allergy Verified 10/19/18 14:36 Home Meds: Home Meds Metoprolol Tartrate 25 mg PO BID 04/11/16 [History] Warfarin [Coumadin] 5 mg PO ASDIRECTED 04/11/16 [History] Fenofibrate Nanocrystallized [Fenofibrate] 145 mg PO BEDTIME 05/27/16 [History] Warfarin [Coumadin] 7.5 mg PO ASDIRECTED 06/03/16 [History] oxyCODONE 20 mg PO Q4H PRN #80 tablet 06/03/16 [Rx] oxyCODONE ER [OxyCONTIN] 20 mg PO Q12HR #20 tab.er 06/03/16 [Rx] Past Medical History HEENT History: Reports: None Cardiovascular History: Reports: Heart Valve Replacement Other Cardiovascular History: takes metoprolol since heart valve surgery, never hypertensive. Aortic valve, metallic mechanical Respiratory History: Reports: Sleep Apnea, TB Other Respiratory History: uses CPAP, was diagnosed with latent TB 3 months ago Gastrointestinal History: Reports: None. Denies: GERD, GI Bleed Genitourinary History: Reports: None Musculoskeletal History: Reports: Arthritis, Fracture Other Musculoskeletal History: hx of fx right arm Neurological History: Reports: Other (See Below) Other Neuro History: hx of motion sickness Psychiatric History: Reports: None Endocrine/Metabolic History: Reports: Obesity/BMI 30+ Hematologic History: Reports: Anticoagulation Therapy Immunologic History: Reports: None Oncologic (Cancer) History: Reports: None Dermatologic History: Reports: None - Infectious Disease History Infectious Disease History: Reports: Chicken Pox, TB - Past Surgical History Cardiovascular Surgical History: Reports: Valve Replacement Musculoskeletal Surgical History: Reports: Arthroscopic Knee Social & Family History - Family History Family Medical History: Noncontributory Cardiac: Reports: Hypertension, [place] - Caffeine Use Caffeine Use: Reports: Coffee, Soda, Tea ED ROS GENERAL - Review of Systems Review Of Systems: ROS reveals no pertinent complaints other than HPI. ED EXAM, GENERAL - Physical Exam Exam: See Below (See dictation) Course - Vital Signs Last Recorded V/S: Last Vital Signs Temp 36.2 C 10/19/18 14:37 Pulse 76 10/19/18 14:37 Resp 18 10/19/18 14:37 BP 104/69 10/19/18 14:53 Pulse Ox 100 10/19/18 14:37 - Orders/Labs/Meds Orders: Active Orders 24 hr Category Date Time Status Admission Status [Patient Status] [ADT] Stat ADT 10/19/18 16:13 Active EKG Documentation Completion [RC] STAT Care 10/19/18 14:30 Active Hemoccult [Fecal Occult Blood Collection] [RC] Care 10/19/18 15:10 Active ASDIRECTED Orthostatic Vital Signs [RC] ASDIRECTED Care 10/19/18 15:58 Active Verify Patient Consent Obtain [RC] ASDIRECTED Care 10/19/18 15:05 Active RED BLOOD CELLS LP [BBK] Stat Lab 10/19/18 15:24 Results TYPE AND SCREEN [BBK] Stat Lab 10/19/18 15:24 Results UA RFX ALIA AND CULT IF INDIC [URIN] Stat Lab 10/19/18 14:30 Ordered Nitroglycerin [Nitrostat] Med 10/19/18 15:01 Active 0.4 mg SL Q5M PRN Sodium Chloride 0.9% [Normal Saline] 1,000 ml Med 10/19/18 15:34 Active IV STAT Transfuse Red Blood Cells [COMM] Stat Oth 10/19/18 15:02 Ordered Medication Orders Sodium Chloride (Normal Saline) 1,000 mls @ 999 mls/hr IV STAT ONE Stop: 10/19/18 16:34 Last Admin: 10/19/18 15:39 Dose: 999 mls/hr Nitroglycerin (Nitrostat) 0.4 mg SL Q5M PRN PRN Reason: Chest Pain Labs: Laboratory Tests 10/19/18 10/19/18 10/19/18 Range/Units 14:45 14:45 15:24 WBC 6.68 (4.0-11.0) K/uL RBC 1.88 L (4.50-5.90) M/uL Hgb 6.2 L (13.0-17.0) g/dL Hct 17.9 L (38.0-50.0) % MCV 95.2 (80.0-98.0) fL MCH 33.0 H (27.0-32.0) pg MCHC 34.6 (31.0-37.0) g/dL RDW Std Deviation 46.6 (28.0-62.0) fl RDW Coeff of Ghada 14 (11.0-15.0) % Plt Count 210 (150-400) K/uL MPV 9.90 (7.40-12.00) fL Neut % (Auto) 66.1 (48.0-80.0) % Lymph % (Auto) 26.2 (16.0-40.0) % [place] % (Auto) 6.9 (0.0-15.0) % Eos % (Auto) 0.4 (0.0-7.0) % Baso % (Auto) 0.4 (0.0-1.5) % Neut # (Auto) 4.4 (1.4-5.7) K/uL Lymph # (Auto) 1.8 (0.6-2.4) K/uL [place] # (Auto) 0.5 (0.0-0.8) K/uL Eos # (Auto) 0.0 (0.0-0.7) K/uL Baso # (Auto) 0.0 (0.0-0.1) K/uL Nucleated RBC % 0.0 /100WBC Nucleated RBCs # 0 K/uL INR 3.16 Sodium 142 (136-148) mmol/L Potassium 3.8 (3.5-5.1) mmol/L Chloride 108 H (98-107) mmol/L Carbon Dioxide 25.5 (21.0-32.0) mmol/L BUN 18 (7.0-18.0) mg/dL Creatinine 1.1 (0.8-1.3) mg/dL Est Cr Clr Drug Dosing 80.32 mL/min Estimated GFR (MDRD) > 60.0 ml/min Glucose 140 H (74-106) mg/dL Calcium 8.8 (8.5-10.1) mg/dL Total Bilirubin 0.2 (0.2-1.0) mg/dL AST 11 L (15-37) IU/L ALT 17 (14-63) IU/L Alkaline Phosphatase 48 (46-116) U/L Troponin I < 0.050 (0.000-0.056) ng/mL Total Protein 5.8 L (6.4-8.2) g/dL Albumin 3.1 L (3.4-5.0) g/dL Globulin 2.7 (2.6-4.0) g/dL Albumin/Globulin Ratio 1.2 (0.9-1.6) Blood Type Antibody Screen Crossmatch 10/19/18 Range/Units 15:24 WBC (4.0-11.0) K/uL RBC (4.50-5.90) M/uL Hgb (13.0-17.0) g/dL Hct (38.0-50.0) % MCV (80.0-98.0) fL MCH (27.0-32.0) pg MCHC (31.0-37.0) g/dL RDW Std Deviation (28.0-62.0) fl RDW Coeff of Ghada (11.0-15.0) % Plt Count (150-400) K/uL MPV (7.40-12.00) fL Neut % (Auto) (48.0-80.0) % Lymph % (Auto) (16.0-40.0) % [place] % (Auto) (0.0-15.0) % Eos % (Auto) (0.0-7.0) % Baso % (Auto) (0.0-1.5) % Neut # (Auto) (1.4-5.7) K/uL Lymph # (Auto) (0.6-2.4) K/uL [place] # (Auto) (0.0-0.8) K/uL Eos # (Auto) (0.0-0.7) K/uL Baso # (Auto) (0.0-0.1) K/uL Nucleated RBC % /100WBC Nucleated RBCs # K/uL INR Sodium (136-148) mmol/L Potassium (3.5-5.1) mmol/L Chloride (98-107) mmol/L Carbon Dioxide (21.0-32.0) mmol/L BUN (7.0-18.0) mg/dL Creatinine (0.8-1.3) mg/dL Est Cr Clr Drug Dosing mL/min Estimated GFR (MDRD) ml/min Glucose (74-106) mg/dL Calcium (8.5-10.1) mg/dL Total Bilirubin (0.2-1.0) mg/dL AST (15-37) IU/L ALT (14-63) IU/L Alkaline Phosphatase (46-116) U/L Troponin I (0.000-0.056) ng/mL Total Protein (6.4-8.2) g/dL Albumin (3.4-5.0) g/dL Globulin (2.6-4.0) g/dL Albumin/Globulin Ratio (0.9-1.6) Blood Type A POSITIVE Antibody Screen NEGATIVE Crossmatch See Detail Meds: Medications Generic Name Dose Route Start Last Admin Trade Name Freq PRN Reason Stop Dose Admin Sodium Chloride 1,000 mls @ 999 mls/hr 10/19/18 15:34 10/19/18 15:39 Normal Saline IV 10/19/18 16:34 999 mls/hr STAT ONE Administration Nitroglycerin 0.4 mg 10/19/18 15:01 Nitrostat SL Q5M PRN Chest Pain Discontinued Medications Generic Name Dose Route Start Last Admin Trade Name Freq PRN Reason Stop Dose Admin Sodium Chloride Confirm 10/19/18 15:19 10/19/18 15:25 Normal Saline Administered 10/19/18 15:20 20 mls/hr Dose Administration 20 mls @ as directed .ROUTE .STK-MED ONE Pantoprazole Sodium 80 mg 10/19/18 15:06 10/19/18 15:24 Protonix Iv IVPUSH 10/19/18 15:07 80 mg .BOLUS ONE Administration Departure - Departure Time of Disposition: 16:17 Disposition: Admitted As Inpatient 67 Clinical Impression: Heme positive stool Anemia Qualifiers: Anemia type: unspecified type Qualified Code(s): D64.9 - Anemia, unspecified Chest pain Qualifiers: Chest pain type: unspecified Qualified Code(s): R07.9 - Chest pain, unspecified - Discharge Information - My Orders Last 24 Hours: My Active Orders 10/19/18 14:30 EKG Documentation Completion [RC] STAT UA RFX ALIA AND CULT IF INDIC [URIN] Stat 10/19/18 15:01 Nitroglycerin [Nitrostat] 0.4 mg SL Q5M PRN 10/19/18 15:02 Transfuse Red Blood Cells [COMM] Stat 10/19/18 15:05 Verify Patient Consent Obtain [RC] ASDIRECTED 10/19/18 15:10 Hemoccult [Fecal Occult Blood Collection] [RC] ASDIRECTED 10/19/18 15:24 RED BLOOD CELLS LP [BBK] Stat TYPE AND SCREEN [BBK] Stat 10/19/18 15:34 Sodium Chloride 0.9% [Normal Saline] 1,000 ml IV STAT 10/19/18 15:58 Orthostatic Vital Signs [RC] ASDIRECTED 10/19/18 16:13 Admission Status [Patient Status] [ADT] Stat - Assessment/Plan Last 24 Hours: My Active Orders 10/19/18 14:30 EKG Documentation Completion [RC] STAT UA RFX ALIA AND CULT IF INDIC [URIN] Stat 10/19/18 15:01 Nitroglycerin [Nitrostat] 0.4 mg SL Q5M PRN 10/19/18 15:02 Transfuse Red Blood Cells [COMM] Stat 10/19/18 15:05 Verify Patient Consent Obtain [RC] ASDIRECTED 10/19/18 15:10 Hemoccult [Fecal Occult Blood Collection] [RC] ASDIRECTED 10/19/18 15:24 RED BLOOD CELLS LP [BBK] Stat TYPE AND SCREEN [BBK] Stat 10/19/18 15:34 Sodium Chloride 0.9% [Normal Saline] 1,000 ml IV STAT 10/19/18 15:58 Orthostatic Vital Signs [RC] ASDIRECTED 10/19/18 16:13 Admission Status [Patient Status] [ADT] Stat
[2018-10-19] MEDS ORDERED: Nitroglycerin 0.4 MG Tab.SL SL PRN (15:01)
[2018-10-19] MEDS ORDERED: Pantoprazole 40 MG Vial IVPUSH ONE (15:06)
[2018-10-19] MEDS ORDERED: Sodium Chloride 0.9% 20 ML ONE (15:19)
--- NOTE | 2018-10-19 15:19 | CR ---
Indication: Chest pain Technique: Chest 1 view Comparison: None Findings/Impression: Cardiovascular and mediastinum: Upper limits of normal cardiac size is probably related to the portable technique. Lungs and pleural space: Lungs are clear. No sign of infiltrate or mass. No sign of pleural effusion. No pneumothorax. Bones and soft tissues: No significant findings. Dictated by Marbin Henderson MD @ 10/19/2018 3:19:03 PM Dictated by: Marbin Henderson MD @ 10/19/2018 15:19:12 (Electronically Signed)
[2018-10-19] MEDS ORDERED: Sodium Chloride 0.9% 1,000 ML IV ONE (15:34)
[2018-10-19 15:36] LABS: CHLORIDE,CL 108 mmol/L (98-107); SODIUM,NA 142 mmol/L (136-148)
--- NOTE | 2018-10-19 16:29 | PCM.HP.2 ---
H&P History of Present Illness - General Date of Service: 10/19/18 Admit Problem/Dx: Admission Diagnosis/Problem Admission Diagnosis/Problem Anemia - History of Present Illness Initial Comments - Free Text/Narative: The patient is a 48-year-old male who presented to the ER with 1 day history of chest pain. He reports the chest pain feels like pressure on the left-side of his chest with associated shortness of breath and nausea. He reports he has never had symptoms like this before. He says the pain is worse with activity. He also notes feeling lightheaded and feeling like he is going to pass out for the past week. He reports past medical history of aortic valve replacement due to a defect for which she takes warfarin and metoprolol. The patient was found to be anemic in the ER. He denies any black/bloody stools, hematemesis, abdominal pain. He denies any alcohol or NSAID use. He denies any history of gastric ulcers or GI bleed. In the ER, initial workup included a CBC which showed a hemoglobin of 6.2, a CMP , negative troponin, and INR 3.16. He was given a bolus of pantoprazole and 2 units of blood were ordered. ER reported that he was orthostatic and was Hemoccult positive. CXR showed no acute cardiopulmonary process. EKG showed NSR without ST changes. Left Chest Pain Score (Numeric/FACES): 4 - Related Data Allergies/Adverse Reactions: Allergies Allergy/AdvReac Type Severity Reaction Status Date / Time No Known Allergies Allergy Verified 10/19/18 14:36 Home Medications: Home Meds Metoprolol Tartrate 25 mg PO BID 04/11/16 [History] Warfarin [Coumadin] 5 mg PO ASDIRECTED 04/11/16 [History] Fenofibrate Nanocrystallized [Fenofibrate] 145 mg PO BEDTIME 05/27/16 [History] Warfarin [Coumadin] 7.5 mg PO ASDIRECTED 06/03/16 [History] oxyCODONE 20 mg PO Q4H PRN #80 tablet 06/03/16 [Rx] oxyCODONE ER [OxyCONTIN] 20 mg PO Q12HR #20 tab.er 06/03/16 [Rx] Past Medical History HEENT History: Reports: None Cardiovascular History: Reports: Heart Valve Replacement Other Cardiovascular History: takes metoprolol since heart valve surgery, never hypertensive. Aortic valve, metallic mechanical Respiratory History: Reports: Sleep Apnea, TB Other Respiratory History: uses CPAP, was diagnosed with latent TB 3 months ago Gastrointestinal History: Reports: None. Denies: GERD, GI Bleed Genitourinary History: Reports: None Musculoskeletal History: Reports: Arthritis, Fracture Other Musculoskeletal History: hx of fx right arm Neurological History: Reports: Other (See Below) Other Neuro History: hx of motion sickness Psychiatric History: Reports: None Endocrine/Metabolic History: Reports: Obesity/BMI 30+ Hematologic History: Reports: Anticoagulation Therapy Immunologic History: Reports: None Oncologic (Cancer) History: Reports: None Dermatologic History: Reports: None - Infectious Disease History Infectious Disease History: Reports: Chicken Pox, TB - Past Surgical History Cardiovascular Surgical History: Reports: Valve Replacement Musculoskeletal Surgical History: Reports: Arthroscopic Knee Social & Family History - Family History Family Medical History: Noncontributory Cardiac: Reports: Hypertension, [place] - Tobacco Use Smoking Status *Q: Current Every Day Smoker Years of Tobacco use: 4 Packs/Tins Daily: 1 - Caffeine Use Caffeine Use: Reports: Coffee, Soda, Tea - Recreational Drug Use Recreational Drug Use: No H&P Review of Systems - Review of Systems: Review Of Systems: See Below General: Reports: Malaise, Weakness. Denies: Fever, Chills HEENT: Reports: No Symptoms Pulmonary: Reports: Shortness of Breath. Denies: Cough Cardiovascular: Reports: Chest Pain, Lightheadedness Gastrointestinal: Reports: No Symptoms Genitourinary: Reports: No Symptoms Musculoskeletal: Reports: No Symptoms Skin: Reports: No Symptoms, Pallor Psychiatric: Reports: No Symptoms Neurological: Reports: No Symptoms Hematologic/Lymphatic: Reports: Anemia Immunologic: Reports: No Symptoms Exam - Exam Exam: See Below - Vital Signs Vital Signs: Last Vital Signs Temp 97.2 F 10/19/18 14:37 Pulse 76 10/19/18 14:37 Resp 18 10/19/18 14:37 BP 104/69 10/19/18 14:53 Pulse Ox 100 10/19/18 14:37 Weight: 99.79 kg - Exam General: Alert, Oriented, Cooperative Neck: Supple Lungs: Clear to Auscultation, Normal Respiratory Effort Cardiovascular: Regular Rate, Regular Rhythm, Other (aortic valve click) GI/Abdominal Exam: Normal Bowel Sounds, Soft, Non-Tender, No Distention. No: Guarding, Rigid Extremities: No Pedal Edema Skin: Warm, Dry, Intact Neuro Extensive - Mental Status: Alert, Oriented x3 Psychiatric: Alert, Normal Affect, Normal Mood - Patient Data Lab Results Last 24 hrs: Laboratory Results - last 24 hr 10/19/18 10/19/18 10/19/18 Range/Units 14:45 14:45 15:24 WBC 6.68 (4.0-11.0) K/uL RBC 1.88 L (4.50-5.90) M/uL Hgb 6.2 L (13.0-17.0) g/dL Hct 17.9 L (38.0-50.0) % MCV 95.2 (80.0-98.0) fL MCH 33.0 H (27.0-32.0) pg MCHC 34.6 (31.0-37.0) g/dL RDW Std Deviation 46.6 (28.0-62.0) fl RDW Coeff of Ghada 14 (11.0-15.0) % Plt Count 210 (150-400) K/uL MPV 9.90 (7.40-12.00) fL Neut % (Auto) 66.1 (48.0-80.0) % Lymph % (Auto) 26.2 (16.0-40.0) % [place] % (Auto) 6.9 (0.0-15.0) % Eos % (Auto) 0.4 (0.0-7.0) % Baso % (Auto) 0.4 (0.0-1.5) % Neut # (Auto) 4.4 (1.4-5.7) K/uL Lymph # (Auto) 1.8 (0.6-2.4) K/uL [place] # (Auto) 0.5 (0.0-0.8) K/uL Eos # (Auto) 0.0 (0.0-0.7) K/uL Baso # (Auto) 0.0 (0.0-0.1) K/uL Nucleated RBC % 0.0 /100WBC Nucleated RBCs # 0 K/uL INR 3.16 Sodium 142 (136-148) mmol/L Potassium 3.8 (3.5-5.1) mmol/L Chloride 108 H (98-107) mmol/L Carbon Dioxide 25.5 (21.0-32.0) mmol/L BUN 18 (7.0-18.0) mg/dL Creatinine 1.1 (0.8-1.3) mg/dL Est Cr Clr Drug Dosing 80.32 mL/min Estimated GFR (MDRD) > 60.0 ml/min Glucose 140 H (74-106) mg/dL Calcium 8.8 (8.5-10.1) mg/dL Total Bilirubin 0.2 (0.2-1.0) mg/dL AST 11 L (15-37) IU/L ALT 17 (14-63) IU/L Alkaline Phosphatase 48 (46-116) U/L Troponin I < 0.050 (0.000-0.056) ng/mL Total Protein 5.8 L (6.4-8.2) g/dL Albumin 3.1 L (3.4-5.0) g/dL Globulin 2.7 (2.6-4.0) g/dL Albumin/Globulin Ratio 1.2 (0.9-1.6) Blood Type Antibody Screen Crossmatch 10/19/18 Range/Units 15:24 WBC (4.0-11.0) K/uL RBC (4.50-5.90) M/uL Hgb (13.0-17.0) g/dL Hct (38.0-50.0) % MCV (80.0-98.0) fL MCH (27.0-32.0) pg MCHC (31.0-37.0) g/dL RDW Std Deviation (28.0-62.0) fl RDW Coeff of Ghada (11.0-15.0) % Plt Count (150-400) K/uL MPV (7.40-12.00) fL Neut % (Auto) (48.0-80.0) % Lymph % (Auto) (16.0-40.0) % [place] % (Auto) (0.0-15.0) % Eos % (Auto) (0.0-7.0) % Baso % (Auto) (0.0-1.5) % Neut # (Auto) (1.4-5.7) K/uL Lymph # (Auto) (0.6-2.4) K/uL [place] # (Auto) (0.0-0.8) K/uL Eos # (Auto) (0.0-0.7) K/uL Baso # (Auto) (0.0-0.1) K/uL Nucleated RBC % /100WBC Nucleated RBCs # K/uL INR Sodium (136-148) mmol/L Potassium (3.5-5.1) mmol/L Chloride (98-107) mmol/L Carbon Dioxide (21.0-32.0) mmol/L BUN (7.0-18.0) mg/dL Creatinine (0.8-1.3) mg/dL Est Cr Clr Drug Dosing mL/min Estimated GFR (MDRD) ml/min Glucose (74-106) mg/dL Calcium (8.5-10.1) mg/dL Total Bilirubin (0.2-1.0) mg/dL AST (15-37) IU/L ALT (14-63) IU/L Alkaline Phosphatase (46-116) U/L Troponin I (0.000-0.056) ng/mL Total Protein (6.4-8.2) g/dL Albumin (3.4-5.0) g/dL Globulin (2.6-4.0) g/dL Albumin/Globulin Ratio (0.9-1.6) Blood Type A POSITIVE Antibody Screen NEGATIVE Crossmatch See Detail Result Diagrams: 10/19/18 14:45 10/19/18 14:45 Problem List Initiated/Reviewed/Updated: Yes Orders Last 24hrs: Active Orders 24 hr Category Date Time Status Admission Status [Patient Status] [ADT] Stat ADT 10/19/18 16:13 Active EKG Documentation Completion [RC] STAT Care 10/19/18 14:30 Active Hemoccult [Fecal Occult Blood Collection] [RC] Care 10/19/18 15:10 Active ASDIRECTED Orthostatic Vital Signs [RC] ASDIRECTED Care 10/19/18 15:58 Active Verify Patient Consent Obtain [RC] ASDIRECTED Care 10/19/18 15:05 Active RED BLOOD CELLS LP [BBK] Stat Lab 10/19/18 15:24 Results TYPE AND SCREEN [BBK] Stat Lab 10/19/18 15:24 Results UA RFX ALIA AND CULT IF INDIC [URIN] Stat Lab 10/19/18 14:30 Ordered Nitroglycerin [Nitrostat] Med 10/19/18 15:01 Active 0.4 mg SL Q5M PRN Sodium Chloride 0.9% [Normal Saline] 1,000 ml Med 10/19/18 15:34 Active IV STAT Transfuse Red Blood Cells [COMM] Stat Oth 10/19/18 15:02 Ordered Medication Orders Sodium Chloride (Normal Saline) 1,000 mls @ 999 mls/hr IV STAT ONE Stop: 10/19/18 16:34 Last Admin: 10/19/18 15:39 Dose: 999 mls/hr Nitroglycerin (Nitrostat) 0.4 mg SL Q5M PRN PRN Reason: Chest Pain Assessment/Plan Comment:: 1. Admit to ICU as inpatient 2. Code status- Full 3. Vitals per routine 4. I/Os strict 5. Diet- regular 6. DVT prophylaxis with SCDs 7. Chest pain likely related to anemia- will trend troponin and monitor on telemetry 8. Symptomatic anemia with positive Hemoccult- ER ordered 2 units of blood, will check CBC after transfusion. Will start Protonix IV 40 mg BID. Will hold warfarin. General surgery consulted. General surgery recommended holding Coumadin, and bridge to Lovenox for possible EGD on Wednesday. Patient will need to be NPO after midnight on . Likely outpatient colonoscopy. 9. Aortic valve replacement-continue metoprolol but hold anti-coagulation
--- NOTE | 2018-10-19 18:12 | PCM.CONS ---
H&P History of Present Illness - General Date of Service: 10/19/18 Admit Problem/Dx: Admission Diagnosis/Problem Admission Diagnosis/Problem Anemia Source of Information: Patient, Family History Limitations: Reports: No Limitations - History of Present Illness Initial Comments - Free Text/Narative: Patient is a 48-year-old gentleman who presented to the emergency room today complaining of chest pain for the last 24-36 hours. This was associated with lightheadedness, decreased energy. No history of hematemesis. He does not think his stools have become dark in color. He was found to be profoundly anemic in the emergency room with a hemoglobin of 6.2. The ER notes reflect that he was Hemoccult positive. Symptom Onset Date: 10/18/18 Duration of Symptoms: Reports: Day(s):, Getting Worse Location: Reports: Abdomen Severity: Moderate Improves with: Reports: None Worsens with: Reports: Movement Context: Reports: Sick Contact Associated Symptoms: Reports: Chest Pain, Weakness. Denies: Cough, Diaphoresis , Fever/Chills, Headaches, Nausea/Vomiting Left Chest Pain Score (Numeric/FACES): 4 - Related Data Allergies/Adverse Reactions: Allergies Allergy/AdvReac Type Severity Reaction Status Date / Time No Known Allergies Allergy Verified 10/19/18 14:36 Home Medications: Home Meds Metoprolol Tartrate 25 mg PO BID 04/11/16 [History] Warfarin [Coumadin] 5 mg PO ASDIRECTED 04/11/16 [History] Fenofibrate Nanocrystallized [Fenofibrate] 145 mg PO BEDTIME 05/27/16 [History] Warfarin [Coumadin] 7.5 mg PO ASDIRECTED 06/03/16 [History] oxyCODONE 20 mg PO Q4H PRN #80 tablet 06/03/16 [Rx] oxyCODONE ER [OxyCONTIN] 20 mg PO Q12HR #20 tab.er 06/03/16 [Rx] Past Medical History HEENT History: Reports: None Cardiovascular History: Reports: Heart Valve Replacement Other Cardiovascular History: takes metoprolol since heart valve surgery, never hypertensive. Aortic valve, metallic mechanical Respiratory History: Reports: Sleep Apnea, TB Other Respiratory History: uses CPAP, was diagnosed with latent TB 3 months ago Gastrointestinal History: Reports: None. Denies: GERD, GI Bleed Genitourinary History: Reports: None Musculoskeletal History: Reports: Arthritis, Fracture Other Musculoskeletal History: hx of fx right arm Neurological History: Reports: Other (See Below) Other Neuro History: hx of motion sickness Psychiatric History: Reports: None Endocrine/Metabolic History: Reports: Obesity/BMI 30+ Hematologic History: Reports: Anticoagulation Therapy Immunologic History: Reports: None Oncologic (Cancer) History: Reports: None Dermatologic History: Reports: None - Infectious Disease History Infectious Disease History: Reports: Chicken Pox, TB - Past Surgical History Cardiovascular Surgical History: Reports: Valve Replacement (prosthetic aortic valve, chronically anticoagulated) Musculoskeletal Surgical History: Reports: Arthroscopic Knee, Joint Replacement (right total knee arthroplasty) Social & Family History - Family History Family Medical History: Noncontributory Cardiac: Reports: Hypertension, [place] - Tobacco Use Smoking Status *Q: Current Every Day Smoker Years of Tobacco use: 4 Packs/Tins Daily: 1 - Caffeine Use Caffeine Use: Reports: Coffee, Soda, Tea - Recreational Drug Use Recreational Drug Use: No H&P Review of Systems - Review of Systems: Review Of Systems: See Below General: Reports: Malaise, Weakness, Fatigue. Denies: Fever, Chills, Decreased Appetite HEENT: Reports: No Symptoms Pulmonary: Reports: Shortness of Breath. Denies: Wheezing, Pleuritic Chest Pain , Cough, Sputum Cardiovascular: Reports: Chest Pain, Dyspnea on Exertion, Lightheadedness, Syncope (near syncopal episode). Denies: Palpitations, Orthopnea, PND, Edema Gastrointestinal: Reports: Flatus, Melena, Other (Heme positive stool). Denies : Anorexia, Bloody Stool, Constipation, Diarrhea, Distension, Hematemesis, Hematochezia, Mucous in Stool, Nausea, Vomiting Genitourinary: Denies: Dysuria, Frequency, Burning Musculoskeletal: Denies: Neck Pain, Shoulder Pain, Arm Pain Skin: Denies: Cyanosis, Jaundice Psychiatric: Denies: Confusion, Depression, Anxiety Neurological: Reports: No Symptoms Hematologic/Lymphatic: Reports: Anemia, Other (Warfarin Rx). Denies: Easy Bleeding, Easy Bruising Immunologic: Reports: No Symptoms Exam - Exam Exam: See Below - Vital Signs Vital Signs: Last Vital Signs Temp 97.2 F 10/19/18 14:37 Pulse 70 10/19/18 17:23 Resp 18 10/19/18 14:37 BP 112/71 10/19/18 17:23 Pulse Ox 100 10/19/18 14:37 Weight: 220 lb - Exam Quality Assessment: No: Supplemental Oxygen, Urinary Catheter General: Alert, Oriented, Cooperative HEENT: Conjunctiva Clear, Nares Patent, Pupils Equal, Pupils Reactive. No: Scleral Icterus Neck: Supple, Trachea Midline Lungs: Clear to Auscultation, Normal Respiratory Effort Cardiovascular: Regular Rate, Regular Rhythm, Normal S1, Normal S2, Systolic Murmur (consistent with hx of valve replacement) GI/Abdominal Exam: Normal Bowel Sounds, Soft, Non-Tender, No Distention, No Mass. No: Guarding, Rigid, Rebound (Male) Exam: No Hernia Rectal (Males) Exam: Deferred Back Exam: Normal Inspection, Full Range of Motion Extremities: Normal Inspection, Normal Range of Motion Peripheral Pulses: 4+: Posterior Tibial (L), Posterior Tibial (R), Dorsalis Pedis (L), Dorsalis Pedis (R) Skin: Warm, Dry, Intact Neurological: Cranial Nerves Intact, Reflexes Equal Bilateral Neuro Extensive - Mental Status: Alert, Oriented x3, Normal Mood/Affect, Normal Cognition Neuro Extensive - Motor, Sensory, Reflexes: CN II-XII Intact, Normal Gait, Normal Reflexes Psychiatric: Alert, Normal Affect, Normal Mood - Patient Data Lab Results Last 24 hrs: Laboratory Results - last 24 hr 10/19/18 10/19/18 10/19/18 Range/Units 14:45 14:45 15:24 WBC 6.68 (4.0-11.0) K/uL RBC 1.88 L (4.50-5.90) M/uL Hgb 6.2 L (13.0-17.0) g/dL Hct 17.9 L (38.0-50.0) % MCV 95.2 (80.0-98.0) fL MCH 33.0 H (27.0-32.0) pg MCHC 34.6 (31.0-37.0) g/dL RDW Std Deviation 46.6 (28.0-62.0) fl RDW Coeff of Ghada 14 (11.0-15.0) % Plt Count 210 (150-400) K/uL MPV 9.90 (7.40-12.00) fL Neut % (Auto) 66.1 (48.0-80.0) % Lymph % (Auto) 26.2 (16.0-40.0) % [place] % (Auto) 6.9 (0.0-15.0) % Eos % (Auto) 0.4 (0.0-7.0) % Baso % (Auto) 0.4 (0.0-1.5) % Neut # (Auto) 4.4 (1.4-5.7) K/uL Lymph # (Auto) 1.8 (0.6-2.4) K/uL [place] # (Auto) 0.5 (0.0-0.8) K/uL Eos # (Auto) 0.0 (0.0-0.7) K/uL Baso # (Auto) 0.0 (0.0-0.1) K/uL Nucleated RBC % 0.0 /100WBC Nucleated RBCs # 0 K/uL INR 3.16 Sodium 142 (136-148) mmol/L Potassium 3.8 (3.5-5.1) mmol/L Chloride 108 H (98-107) mmol/L Carbon Dioxide 25.5 (21.0-32.0) mmol/L BUN 18 (7.0-18.0) mg/dL Creatinine 1.1 (0.8-1.3) mg/dL Est Cr Clr Drug Dosing 80.32 mL/min Estimated GFR (MDRD) > 60.0 ml/min Glucose 140 H (74-106) mg/dL Calcium 8.8 (8.5-10.1) mg/dL Total Bilirubin 0.2 (0.2-1.0) mg/dL AST 11 L (15-37) IU/L ALT 17 (14-63) IU/L Alkaline Phosphatase 48 (46-116) U/L Troponin I < 0.050 (0.000-0.056) ng/mL Total Protein 5.8 L (6.4-8.2) g/dL Albumin 3.1 L (3.4-5.0) g/dL Globulin 2.7 (2.6-4.0) g/dL Albumin/Globulin Ratio 1.2 (0.9-1.6) Urine Color Urine Appearance Urine pH (5.0-8.0) Ur Specific [place] (1.001-1.035) Urine Protein (NEGATIVE) mg/dL Urine Glucose (UA) (NEGATIVE) mg/dL Urine Ketones (NEGATIVE) mg/dL Urine Occult Blood (NEGATIVE) Urine Nitrite (NEGATIVE) Urine Bilirubin (NEGATIVE) Urine Urobilinogen (<2.0) EU/dL Ur Leukocyte Esterase (NEGATIVE) Blood Type Antibody Screen Crossmatch 10/19/18 10/19/18 Range/Units 15:24 16:25 WBC (4.0-11.0) K/uL RBC (4.50-5.90) M/uL Hgb (13.0-17.0) g/dL Hct (38.0-50.0) % MCV (80.0-98.0) fL MCH (27.0-32.0) pg MCHC (31.0-37.0) g/dL RDW Std Deviation (28.0-62.0) fl RDW Coeff of Ghada (11.0-15.0) % Plt Count (150-400) K/uL MPV (7.40-12.00) fL Neut % (Auto) (48.0-80.0) % Lymph % (Auto) (16.0-40.0) % [place] % (Auto) (0.0-15.0) % Eos % (Auto) (0.0-7.0) % Baso % (Auto) (0.0-1.5) % Neut # (Auto) (1.4-5.7) K/uL Lymph # (Auto) (0.6-2.4) K/uL [place] # (Auto) (0.0-0.8) K/uL Eos # (Auto) (0.0-0.7) K/uL Baso # (Auto) (0.0-0.1) K/uL Nucleated RBC % /100WBC Nucleated RBCs # K/uL INR Sodium (136-148) mmol/L Potassium (3.5-5.1) mmol/L Chloride (98-107) mmol/L Carbon Dioxide (21.0-32.0) mmol/L BUN (7.0-18.0) mg/dL Creatinine (0.8-1.3) mg/dL Est Cr Clr Drug Dosing mL/min Estimated GFR (MDRD) ml/min Glucose (74-106) mg/dL Calcium (8.5-10.1) mg/dL Total Bilirubin (0.2-1.0) mg/dL AST (15-37) IU/L ALT (14-63) IU/L Alkaline Phosphatase (46-116) U/L Troponin I (0.000-0.056) ng/mL Total Protein (6.4-8.2) g/dL Albumin (3.4-5.0) g/dL Globulin (2.6-4.0) g/dL Albumin/Globulin Ratio (0.9-1.6) Urine Color YELLOW Urine Appearance CLEAR Urine pH 6.0 (5.0-8.0) Ur Specific [place] 1.010 (1.001-1.035) Urine Protein NEGATIVE (NEGATIVE) mg/dL Urine Glucose (UA) NEGATIVE (NEGATIVE) mg/dL Urine Ketones NEGATIVE (NEGATIVE) mg/dL Urine Occult Blood NEGATIVE (NEGATIVE) Urine Nitrite NEGATIVE (NEGATIVE) Urine Bilirubin NEGATIVE (NEGATIVE) Urine Urobilinogen 0.2 (<2.0) EU/dL Ur Leukocyte Esterase NEGATIVE (NEGATIVE) Blood Type A POSITIVE Antibody Screen NEGATIVE Crossmatch See Detail Result Diagrams: 10/19/18 14:45 10/19/18 14:45 Consult PN Assessment/Plan Procedures: Procedures ASSAY OF AMYLASE (04/11/16) ASSAY OF CK (CPK) (03/13/14) ASSAY OF LIPASE (04/11/16) ASSAY OF TROPONIN QUANT (05/08/15) CHEST X-RAY 1 VIEW FRONTAL (05/08/15) COMPLETE CBC W/AUTO DIFF WBC (04/11/16) COMPREHEN METABOLIC PANEL (04/11/16) CREATINE MB FRACTION (03/13/14) CT ABD & PELV W/CONTRAST (04/11/16) CT THORAX W/DYE (11/09/13) ELECTROCARDIOGRAM TRACING (05/08/15) EMERGENCY DEPT VISIT (07/01/17) EMERGENCY DEPT VISIT (04/11/16) EMERGENCY DEPT VISIT (11/24/14) EMERGENCY DEPT VISIT (03/13/14) FIBRIN DEGRADATION QUANT (05/08/15) GLYCOSYLATED HEMOGLOBIN TEST (03/13/14) IIV3 VACC NO PRSV 0.5 ML IM (03/13/14) KNEE ARTHROSCOPY/SURGERY (07/12/15) LIPID PANEL (03/13/14) MRI JNT OF LWR EXTRE W/O DYE (05/06/16) PROTHROMBIN TIME (04/11/16) PT EVAL LOW COMPLEX 20 MIN (06/19/16) ROUTINE VENIPUNCTURE (04/11/16) THER/PROPH/DIAG INJ IV PUSH (04/11/16) THERAPEUTIC ACTIVITIES (06/19/16) THERAPEUTIC EXERCISES (08/03/16) VASOPNEUMATIC DEVICE THERAPY (08/03/16) X-RAY EXAM KNEE 4 OR MORE (03/26/16) X-RAY EXAM OF KNEE 3 (06/11/16) (1) Anemia SNOMED Code(s): 626086505 Code(s): D64.9 - ANEMIA, UNSPECIFIED Priority: High Current Visit: Yes Qualifiers: Anemia type: unspecified type Qualified Code(s): D64.9 - Anemia, unspecified (2) Chest pain SNOMED Code(s): 62381291 Code(s): R07.9 - CHEST PAIN, UNSPECIFIED Priority: Medium Current Visit: Yes Qualifiers: Chest pain type: unspecified Qualified Code(s): R07.9 - Chest pain, unspecified (3) Heme positive stool SNOMED Code(s): 42652637 Code(s): R19.5 - OTHER FECAL ABNORMALITIES Priority: High Current Visit: Yes (4) Anticoagulated on Coumadin SNOMED Code(s): 46273817 Code(s): Z51.81 - ENCOUNTER FOR THERAPEUTIC DRUG LEVEL MONITORING; Z79.01 - FIRE ADJUSTER (CURRENT) USE OF ANTICOAGULANTS Priority: High Current Visit: No (5) Aortic valve replaced SNOMED Code(s): 5504394752030, 52834343, 9546082843985 Code(s): Z95.2 - PRESENCE OF PROSTHETIC HEART VALVE Priority: High Current Visit: No (6) Atypical chest pain SNOMED Code(s): 972683014 Code(s): R07.89 - OTHER CHEST PAIN Priority: Medium Current Visit: No Problem List Initiated/Reviewed/Updated: Yes Plan: Patient will need transfusion and correction of coagulopathy until INR is less than 2.0. At that point would consider EGD. This possibly could be accomplished this Wednesday. From the endoscopic standpoint, patient could be bridged with Lovenox. If EGD does not reveal pathology, would consider outpatient colonoscopy. Esophagogastroduodenoscopy with biopsy. The operative procedure, along with the risks, including, but not limited to, bleeding, perforation, and the need for surgery were discussed with the patient who voices understanding, offers no questions and wishes to proceed.
[2018-10-19] MEDS: oxyCODONE ER 20 MG TAB.ER PO SCH (19:54)
[2018-10-19] MEDS: Metoprolol Tartrate 25 MG Tab PO SCH (19:55)
[2018-10-19] MEDS ORDERED: Metoprolol Tartrate 25 MG Tab PO SCH (21:00)
[2018-10-19] MEDS ORDERED: oxyCODONE ER 20 MG TAB.ER PO SCH (21:00)
[2018-10-19] MEDS ORDERED: Fenofibrate Nanocrystallized 145 MG PO SCH (21:00)
--- NOTE | 2018-10-19 23:35 | PN ---
[facility] Physician - Brief Progress [id number]/28/2019 23:30[facility] Conor Kline, CHAUNCEY - PRATIK (TINA) - PRATIK VALENZUELAALIA VICTORBijuDate of Service 10/19/2018 23:30HPI/Event s of Note Brief new admit note:43 yr old male admitted to ICU for atypical Chest paun from symptomati c anemia withoout active GI bleed, hemocult +. received a unit of FFEp, getting 2/2 PRBC.Received a dose of Haldol from ED. Video:Resting. on nasal o2. looks stable. HR 66, MAP 66. sats fine.Discuss ed with bed side RN. no intervention needed at this time.Data:reviewed. CxR flim seen- cardiomegaly. INR 3.16. troponin 0.050. BG 140.ED notes, Consult reviewed. A/P:1. Symptomatic Anemia with hem oc ult +.2. Mechanical AVR, on warf at home.- Surgery team going for EGD on Wednesday, once INR stable.- on SCD as VTE prophylaxis.- follow H/H post 2 PRBC.- aspiration precautions- follow troponin.Interventi ons Major-Other: Symptomatic Anemia.Kfydqqoizasi-Sekl-xzavnzod therapies (e.g. VTE, beta gary, etc .), Communication with other healthcare providers and/or family, Diagnostic test evaluationElectronic ally Signed by: ANGELITO ROUSE) on 10/19/2018 23:34
[2018-10-20] MEDS: Pantoprazole 40 MG in Sodium Chloride 0.9% 10 ML IV SCH ×3 (00:20→20:41)
[2018-10-20] MEDS: oxyCODONE ER 20 MG TAB.ER PO SCH ×2 (07:00→20:27)
--- NOTE | 2018-10-20 07:40 | PCM.PN ---
- General Info Date of Service: 10/20/18 Subjective Update: The patient is a 48 year old man admitted for chest pain and symptomatic anemia. Received 2 units overnight and hemoglobin improved from 6.6 to 7.9. Additional 2 units ordered. Patient reports resolution of chest pain. Denies shortness of breath or abdominal pain. Denies any black/bloody bowel movements since admission. - Review of Systems General: Reports: No Symptoms HEENT: Reports: No Symptoms Pulmonary: Reports: No Symptoms Cardiovascular: Reports: No Symptoms Gastrointestinal: Reports: No Symptoms Genitourinary: Reports: No Symptoms Musculoskeletal: Reports: No Symptoms Skin: Reports: No Symptoms Neurological: Reports: No Symptoms Psychiatric: Reports: No Symptoms - Patient Data Vitals - Most Recent: Last Vital Signs Temp 98.2 F 10/20/18 06:39 Pulse 62 10/20/18 06:39 Resp 22 H 10/20/18 06:39 BP 101/67 10/20/18 06:39 Pulse Ox 93 L 10/20/18 06:39 Weight - Most Recent: 97.8 kg I&O - Last 24 Hours: Intake & Output 10/19/18 10/20/18 10/20/18 22:59 06:59 14:59 Intake Total 365 2225 Output Total 410 Balance 365 1815 Lab Results Last 24 Hours: Laboratory Results - last 24 hr 10/19/18 10/19/18 10/19/18 Range/Units 14:45 14:45 15:24 WBC 6.68 (4.0-11.0) K/uL RBC 1.88 L (4.50-5.90) M/uL Hgb 6.2 L (13.0-17.0) g/dL Hct 17.9 L (38.0-50.0) % MCV 95.2 (80.0-98.0) fL MCH 33.0 H (27.0-32.0) pg MCHC 34.6 (31.0-37.0) g/dL RDW Std Deviation 46.6 (28.0-62.0) fl RDW Coeff of Ghada 14 (11.0-15.0) % Plt Count 210 (150-400) K/uL MPV 9.90 (7.40-12.00) fL Neut % (Auto) 66.1 (48.0-80.0) % Lymph % (Auto) 26.2 (16.0-40.0) % [place] % (Auto) 6.9 (0.0-15.0) % Eos % (Auto) 0.4 (0.0-7.0) % Baso % (Auto) 0.4 (0.0-1.5) % Neut # (Auto) 4.4 (1.4-5.7) K/uL Lymph # (Auto) 1.8 (0.6-2.4) K/uL [place] # (Auto) 0.5 (0.0-0.8) K/uL Eos # (Auto) 0.0 (0.0-0.7) K/uL Baso # (Auto) 0.0 (0.0-0.1) K/uL Nucleated RBC % 0.0 /100WBC Nucleated RBCs # 0 K/uL INR 3.16 Sodium 142 (136-148) mmol/L Potassium 3.8 (3.5-5.1) mmol/L Chloride 108 H (98-107) mmol/L Carbon Dioxide 25.5 (21.0-32.0) mmol/L BUN 18 (7.0-18.0) mg/dL Creatinine 1.1 (0.8-1.3) mg/dL Est Cr Clr Drug Dosing 80.32 mL/min Estimated GFR (MDRD) > 60.0 ml/min Glucose 140 H (74-106) mg/dL Calcium 8.8 (8.5-10.1) mg/dL Total Bilirubin 0.2 (0.2-1.0) mg/dL AST 11 L (15-37) IU/L ALT 17 (14-63) IU/L Alkaline Phosphatase 48 (46-116) U/L Troponin I < 0.050 (0.000-0.056) ng/mL Total Protein 5.8 L (6.4-8.2) g/dL Albumin 3.1 L (3.4-5.0) g/dL Globulin 2.7 (2.6-4.0) g/dL Albumin/Globulin Ratio 1.2 (0.9-1.6) Urine Color Urine Appearance Urine pH (5.0-8.0) Ur Specific [place] (1.001-1.035) Urine Protein (NEGATIVE) mg/dL Urine Glucose (UA) (NEGATIVE) mg/dL Urine Ketones (NEGATIVE) mg/dL Urine Occult Blood (NEGATIVE) Urine Nitrite (NEGATIVE) Urine Bilirubin (NEGATIVE) Urine Urobilinogen (<2.0) EU/dL Ur Leukocyte Esterase (NEGATIVE) Blood Type Antibody Screen Crossmatch 10/19/18 10/19/18 10/19/18 Range/Units 15:24 16:25 23:02 WBC (4.0-11.0) K/uL RBC (4.50-5.90) M/uL Hgb (13.0-17.0) g/dL Hct (38.0-50.0) % MCV (80.0-98.0) fL MCH (27.0-32.0) pg MCHC (31.0-37.0) g/dL RDW Std Deviation (28.0-62.0) fl RDW Coeff of Ghada (11.0-15.0) % Plt Count (150-400) K/uL MPV (7.40-12.00) fL Neut % (Auto) (48.0-80.0) % Lymph % (Auto) (16.0-40.0) % [place] % (Auto) (0.0-15.0) % Eos % (Auto) (0.0-7.0) % Baso % (Auto) (0.0-1.5) % Neut # (Auto) (1.4-5.7) K/uL Lymph # (Auto) (0.6-2.4) K/uL [place] # (Auto) (0.0-0.8) K/uL Eos # (Auto) (0.0-0.7) K/uL Baso # (Auto) (0.0-0.1) K/uL Nucleated RBC % /100WBC Nucleated RBCs # K/uL INR Sodium (136-148) mmol/L Potassium (3.5-5.1) mmol/L Chloride (98-107) mmol/L Carbon Dioxide (21.0-32.0) mmol/L BUN (7.0-18.0) mg/dL Creatinine (0.8-1.3) mg/dL Est Cr Clr Drug Dosing mL/min Estimated GFR (MDRD) ml/min Glucose (74-106) mg/dL Calcium (8.5-10.1) mg/dL Total Bilirubin (0.2-1.0) mg/dL AST (15-37) IU/L ALT (14-63) IU/L Alkaline Phosphatase (46-116) U/L Troponin I < 0.050 (0.000-0.056) ng/mL Total Protein (6.4-8.2) g/dL Albumin (3.4-5.0) g/dL Globulin (2.6-4.0) g/dL Albumin/Globulin Ratio (0.9-1.6) Urine Color YELLOW Urine Appearance CLEAR Urine pH 6.0 (5.0-8.0) Ur Specific [place] 1.010 (1.001-1.035) Urine Protein NEGATIVE (NEGATIVE) mg/dL Urine Glucose (UA) NEGATIVE (NEGATIVE) mg/dL Urine Ketones NEGATIVE (NEGATIVE) mg/dL Urine Occult Blood NEGATIVE (NEGATIVE) Urine Nitrite NEGATIVE (NEGATIVE) Urine Bilirubin NEGATIVE (NEGATIVE) Urine Urobilinogen 0.2 (<2.0) EU/dL Ur Leukocyte Esterase NEGATIVE (NEGATIVE) Blood Type A POSITIVE Antibody Screen NEGATIVE Crossmatch See Detail 10/20/18 10/20/18 Range/Units 00:58 07:15 WBC 6.51 (4.0-11.0) K/uL RBC 2.40 L (4.50-5.90) M/uL Hgb 7.9 L (13.0-17.0) g/dL Hct 22.4 L (38.0-50.0) % MCV 93.3 (80.0-98.0) fL MCH 32.9 H (27.0-32.0) pg MCHC 35.3 (31.0-37.0) g/dL RDW Std Deviation 42.5 (28.0-62.0) fl RDW Coeff of Ghada 13 (11.0-15.0) % Plt Count 165 (150-400) K/uL MPV 9.90 (7.40-12.00) fL Neut % (Auto) 61.9 (48.0-80.0) % Lymph % (Auto) 28.3 (16.0-40.0) % [place] % (Auto) 8.4 (0.0-15.0) % Eos % (Auto) 0.9 (0.0-7.0) % Baso % (Auto) 0.5 (0.0-1.5) % Neut # (Auto) 4.0 (1.4-5.7) K/uL Lymph # (Auto) 1.8 (0.6-2.4) K/uL [place] # (Auto) 0.6 (0.0-0.8) K/uL Eos # (Auto) 0.1 (0.0-0.7) K/uL Baso # (Auto) 0.0 (0.0-0.1) K/uL Nucleated RBC % /100WBC Nucleated RBCs # K/uL INR 2.42 Sodium (136-148) mmol/L Potassium (3.5-5.1) mmol/L Chloride (98-107) mmol/L Carbon Dioxide (21.0-32.0) mmol/L BUN (7.0-18.0) mg/dL Creatinine (0.8-1.3) mg/dL Est Cr Clr Drug Dosing mL/min Estimated GFR (MDRD) ml/min Glucose (74-106) mg/dL Calcium (8.5-10.1) mg/dL Total Bilirubin (0.2-1.0) mg/dL AST (15-37) IU/L ALT (14-63) IU/L Alkaline Phosphatase (46-116) U/L Troponin I (0.000-0.056) ng/mL Total Protein (6.4-8.2) g/dL Albumin (3.4-5.0) g/dL Globulin (2.6-4.0) g/dL Albumin/Globulin Ratio (0.9-1.6) Urine Color Urine Appearance Urine pH (5.0-8.0) Ur Specific [place] (1.001-1.035) Urine Protein (NEGATIVE) mg/dL Urine Glucose (UA) (NEGATIVE) mg/dL Urine Ketones (NEGATIVE) mg/dL Urine Occult Blood (NEGATIVE) Urine Nitrite (NEGATIVE) Urine Bilirubin (NEGATIVE) Urine Urobilinogen (<2.0) EU/dL Ur Leukocyte Esterase (NEGATIVE) Blood Type Antibody Screen Crossmatch Med Orders - Current: Current Medications Pantoprazole Sodium 40 mg/ (Sodium Chloride) 10 mls @ 300 mls/hr IV Q12HR RICKEY Last Admin: 10/20/18 00:20 Dose: 300 mls/hr Metoprolol Tartrate (Lopressor) 25 mg PO BID@0700,1900 [facility] Last Admin: 10/19/18 19:55 Dose: 25 mg Nitroglycerin (Nitrostat) 0.4 mg SL Q5M PRN PRN Reason: Chest Pain Oxycodone HCl (Oxycodone) 20 mg PO Q4H PRN PRN Reason: Pain Oxycodone HCl (Oxycontin) 20 mg PO Q12HR@0700,1900 [facility] Last Admin: 10/19/18 19:54 Dose: 20 mg Patient Own Medication (Ptom) 1 each PO DAILY [facility] Discontinued Medications Sodium Chloride (Normal Saline) Confirm Administered Dose 20 mls @ as directed .ROUTE .STK-MED ONE Stop: 10/19/18 15:20 Last Admin: 10/19/18 15:25 Dose: 20 mls/hr Sodium Chloride (Normal Saline) 1,000 mls @ 999 mls/hr IV STAT ONE Stop: 10/19/18 16:34 Last Admin: 10/19/18 15:39 Dose: 999 mls/hr Metoprolol Tartrate (Lopressor) 25 mg PO BID [facility] Oxycodone HCl (Oxycontin) 20 mg PO Q12HR [facility] Pantoprazole Sodium (Protonix Iv) 80 mg IVPUSH .BOLUS ONE Stop: 10/19/18 15:07 Last Admin: 10/19/18 15:24 Dose: 80 mg Fenofibrate Nanocrystallized 145 Mg 1 each PO BEDTIME [facility] - Exam General: Alert, Oriented, Cooperative Lungs: Clear to Auscultation, Normal Respiratory Effort Cardiovascular: Regular Rate, Regular Rhythm GI/Abdominal Exam: Normal Bowel Sounds, Soft, Non-Tender, No Distention Extremities: No Pedal Edema Skin: Warm, Dry, Intact Neurological: No New Focal Deficit Psy/Mental Status: Alert, Normal Affect, Normal Mood - Problem List Review Problem List Initiated/Reviewed/Updated: Yes - My Orders Last 24 Hours: My Active Orders 10/19/18 16:29 Consult to Physician [CONS] Stat 10/19/18 16:30 Notify Provider Consults [RC] ASDIRECTED 10/19/18 16:31 Intake and Output Strict [RC] Q12H Vital Signs [RC] Q1H Resuscitation Status Stat 10/19/18 16:33 SCD [Sequential Compression Device] [OM.PC] Stat 10/19/18 16:34 Antiembolic Devices [RC] PER UNIT ROUTINE 10/19/18 17:04 Telemetry Monitoring [Cardiac Monitoring] [RC] . DIRECTED 10/19/18 19:15 oxyCODONE 20 mg PO Q4H PRN 10/19/18 19:36 Metoprolol Tartrate [Lopressor] 25 mg PO BID@0700,1900 10/19/18 19:45 oxyCODONE ER [OxyCONTIN] 20 mg PO Q12HR@0700,1900 10/19/18 21:00 Pantoprazole [ProTONIX IV] 40 mg Sodium Chloride 0.9% [Normal Saline] 10 ml IV Q12HR 10/20/18 07:15 BASIC METABOLIC PANEL,BMP [CHEM] AM TROPONIN I [CHEM] AM 10/20/18 09:00 Patient's Own Medication [Ptom] 1 each PO DAILY 10/20/18 Dinner Clear Liquid Diet [DIET] - Plan Plan:: 1. Chest pain likely related to anemia- chest pain resolved after blood transfusions, troponins trended and were negative x 3. 2. Symptomatic anemia with positive Hemoccult- Received 2 units overnight with improvement in hemoglobin from 6.6 to 7.9, additional 2 units ordered and hemoglobin improved to 11. Will recheck H/H this evening. Continue Protonix IV 40 mg BID. Will hold warfarin, when INR <2 bridge to lovenox. General surgery following. Possible EGD on Wednesday morning, will need to be NPO after midnight on . Likely outpatient colonoscopy. 3. Aortic valve replacement-continue metoprolol but hold anti-coagulation
[2018-10-20 07:47] LABS: CHLORIDE,CL 112 mmol/L (98-107); SODIUM,NA 142 mmol/L (136-148)
[2018-10-20] MEDS: Metoprolol Tartrate 25 MG Tab PO SCH ×2 (07:53→20:43)
[2018-10-20] MEDS: oxyCODONE 5 MG Tab PO PRN ×4 (07:57→20:41)
[2018-10-20] MEDS ORDERED: Fenofibrate Nanocrystallized 145 MG PO SCH (09:00)
--- NOTE | 2018-10-20 11:39 | PCM.CONSN ---
- General Info Date of Service: 10/20/18 Admission Dx/Problem (Free Text): Admission Diagnosis/Problem Admission Diagnosis/Problem Anemia Subjective Update: Patient states he is feeling better today. Says his energy level is slowly improving and he doesn't feel quite so drained. Again denies any nausea or vomiting. No fever or chills. Functional Status: Reports: Tolerating Diet, Urinating - Review of Systems General: Reports: Weakness, Fatigue, Appetite. Denies: Fever, Malaise, Chills, Night Sweats HEENT: Reports: No Symptoms Pulmonary: Denies: Shortness of Breath, Pleuritic Chest Pain, Cough Cardiovascular: Denies: Chest Pain Gastrointestinal: Reports: Flatus, Nausea, Vomiting. Denies: Abdominal Pain, Constipation, Decreased Appetite, Diarrhea, Difficulty Swallowing, Hematochezia , Melena Genitourinary: Reports: No Symptoms Musculoskeletal: Reports: No Symptoms Skin: Denies: Cyanosis, Jaundice, Mottled Neurological: Reports: No Symptoms Psychiatric: Reports: No Symptoms - Patient Data Vitals - Most Recent: Last Vital Signs Temp 97.8 F 10/20/18 10:02 Pulse 68 10/20/18 10:02 Resp 20 10/20/18 10:02 BP 132/73 10/20/18 10:02 Pulse Ox 98 10/20/18 10:02 Weight - Most Recent: 215 lb 9.793 oz I&O - Last 24 Hours: Intake & Output 10/19/18 10/20/18 10/20/18 19:59 03:59 11:59 Intake Total 40 2069 1668 Output Total 410 Balance 40 1659 1668 Lab Results Last 24 Hours: Laboratory Results - last 24 hr 10/19/18 10/19/18 10/19/18 Range/Units 14:45 14:45 15:24 WBC 6.68 (4.0-11.0) K/uL RBC 1.88 L (4.50-5.90) M/uL Hgb 6.2 L (13.0-17.0) g/dL Hct 17.9 L (38.0-50.0) % MCV 95.2 (80.0-98.0) fL MCH 33.0 H (27.0-32.0) pg MCHC 34.6 (31.0-37.0) g/dL RDW Std Deviation 46.6 (28.0-62.0) fl RDW Coeff of Ghada 14 (11.0-15.0) % Plt Count 210 (150-400) K/uL MPV 9.90 (7.40-12.00) fL Neut % (Auto) 66.1 (48.0-80.0) % Lymph % (Auto) 26.2 (16.0-40.0) % Ritchie % (Auto) 6.9 (0.0-15.0) % Eos % (Auto) 0.4 (0.0-7.0) % Baso % (Auto) 0.4 (0.0-1.5) % Neut # (Auto) 4.4 (1.4-5.7) K/uL Lymph # (Auto) 1.8 (0.6-2.4) K/uL Ritchie # (Auto) 0.5 (0.0-0.8) K/uL Eos # (Auto) 0.0 (0.0-0.7) K/uL Baso # (Auto) 0.0 (0.0-0.1) K/uL Add Manual Diff Neutrophils % (Manual) (48.0-80.0) % Lymphocytes % (Manual) (16.0-40.0) % Monocytes % (Manual) (0.0-15.0) % Nucleated RBC % 0.0 /100WBC Absolute Seg Neuts (1.4-5.7) Lymphocytes # (Manual) (0.6-2.4) Monocytes # (Manual) (0.0-0.8) Nucleated RBCs # 0 K/uL INR 3.16 Sodium 142 (136-148) mmol/L Potassium 3.8 (3.5-5.1) mmol/L Chloride 108 H (98-107) mmol/L Carbon Dioxide 25.5 (21.0-32.0) mmol/L BUN 18 (7.0-18.0) mg/dL Creatinine 1.1 (0.8-1.3) mg/dL Est Cr Clr Drug Dosing 80.32 mL/min Estimated GFR (MDRD) > 60.0 ml/min Glucose 140 H (74-106) mg/dL Calcium 8.8 (8.5-10.1) mg/dL Total Bilirubin 0.2 (0.2-1.0) mg/dL AST 11 L (15-37) IU/L ALT 17 (14-63) IU/L Alkaline Phosphatase 48 (46-116) U/L Troponin I < 0.050 (0.000-0.056) ng/mL Total Protein 5.8 L (6.4-8.2) g/dL Albumin 3.1 L (3.4-5.0) g/dL Globulin 2.7 (2.6-4.0) g/dL Albumin/Globulin Ratio 1.2 (0.9-1.6) Urine Color Urine Appearance Urine pH (5.0-8.0) Ur Specific Willard (1.001-1.035) Urine Protein (NEGATIVE) mg/dL Urine Glucose (UA) (NEGATIVE) mg/dL Urine Ketones (NEGATIVE) mg/dL Urine Occult Blood (NEGATIVE) Urine Nitrite (NEGATIVE) Urine Bilirubin (NEGATIVE) Urine Urobilinogen (<2.0) EU/dL Ur Leukocyte Esterase (NEGATIVE) Blood Type Antibody Screen Crossmatch 10/19/18 10/19/18 10/19/18 Range/Units 15:24 16:25 23:02 WBC (4.0-11.0) K/uL RBC (4.50-5.90) M/uL Hgb (13.0-17.0) g/dL Hct (38.0-50.0) % MCV (80.0-98.0) fL MCH (27.0-32.0) pg MCHC (31.0-37.0) g/dL RDW Std Deviation (28.0-62.0) fl RDW Coeff of Ghada (11.0-15.0) % Plt Count (150-400) K/uL MPV (7.40-12.00) fL Neut % (Auto) (48.0-80.0) % Lymph % (Auto) (16.0-40.0) % Ritchie % (Auto) (0.0-15.0) % Eos % (Auto) (0.0-7.0) % Baso % (Auto) (0.0-1.5) % Neut # (Auto) (1.4-5.7) K/uL Lymph # (Auto) (0.6-2.4) K/uL Ritchie # (Auto) (0.0-0.8) K/uL Eos # (Auto) (0.0-0.7) K/uL Baso # (Auto) (0.0-0.1) K/uL Add Manual Diff Neutrophils % (Manual) (48.0-80.0) % Lymphocytes % (Manual) (16.0-40.0) % Monocytes % (Manual) (0.0-15.0) % Nucleated RBC % /100WBC Absolute Seg Neuts (1.4-5.7) Lymphocytes # (Manual) (0.6-2.4) Monocytes # (Manual) (0.0-0.8) Nucleated RBCs # K/uL INR Sodium (136-148) mmol/L Potassium (3.5-5.1) mmol/L Chloride (98-107) mmol/L Carbon Dioxide (21.0-32.0) mmol/L BUN (7.0-18.0) mg/dL Creatinine (0.8-1.3) mg/dL Est Cr Clr Drug Dosing mL/min Estimated GFR (MDRD) ml/min Glucose (74-106) mg/dL Calcium (8.5-10.1) mg/dL Total Bilirubin (0.2-1.0) mg/dL AST (15-37) IU/L ALT (14-63) IU/L Alkaline Phosphatase (46-116) U/L Troponin I < 0.050 (0.000-0.056) ng/mL Total Protein (6.4-8.2) g/dL Albumin (3.4-5.0) g/dL Globulin (2.6-4.0) g/dL Albumin/Globulin Ratio (0.9-1.6) Urine Color YELLOW Urine Appearance CLEAR Urine pH 6.0 (5.0-8.0) Ur Specific [place] 1.010 (1.001-1.035) Urine Protein NEGATIVE (NEGATIVE) mg/dL Urine Glucose (UA) NEGATIVE (NEGATIVE) mg/dL Urine Ketones NEGATIVE (NEGATIVE) mg/dL Urine Occult Blood NEGATIVE (NEGATIVE) Urine Nitrite NEGATIVE (NEGATIVE) Urine Bilirubin NEGATIVE (NEGATIVE) Urine Urobilinogen 0.2 (<2.0) EU/dL Ur Leukocyte Esterase NEGATIVE (NEGATIVE) Blood Type A POSITIVE Antibody Screen NEGATIVE Crossmatch See Detail 10/20/18 10/20/18 10/20/18 Range/Units 00:58 07:15 07:15 WBC 6.51 (4.0-11.0) K/uL RBC 2.40 L (4.50-5.90) M/uL Hgb 7.9 L (13.0-17.0) g/dL Hct 22.4 L (38.0-50.0) % MCV 93.3 (80.0-98.0) fL MCH 32.9 H (27.0-32.0) pg MCHC 35.3 (31.0-37.0) g/dL RDW Std Deviation 42.5 (28.0-62.0) fl RDW Coeff of Ghada 13 (11.0-15.0) % Plt Count 165 (150-400) K/uL MPV 9.90 (7.40-12.00) fL Neut % (Auto) 61.9 (48.0-80.0) % Lymph % (Auto) 28.3 (16.0-40.0) % Ritchie % (Auto) 8.4 (0.0-15.0) % Eos % (Auto) 0.9 (0.0-7.0) % Baso % (Auto) 0.5 (0.0-1.5) % Neut # (Auto) 4.0 (1.4-5.7) K/uL Lymph # (Auto) 1.8 (0.6-2.4) K/uL Ritchie # (Auto) 0.6 (0.0-0.8) K/uL Eos # (Auto) 0.1 (0.0-0.7) K/uL Baso # (Auto) 0.0 (0.0-0.1) K/uL Add Manual Diff Neutrophils % (Manual) (48.0-80.0) % Lymphocytes % (Manual) (16.0-40.0) % Monocytes % (Manual) (0.0-15.0) % Nucleated RBC % /100WBC Absolute Seg Neuts (1.4-5.7) Lymphocytes # (Manual) (0.6-2.4) Monocytes # (Manual) (0.0-0.8) Nucleated RBCs # K/uL INR 2.42 Sodium 142 (136-148) mmol/L Potassium 4.1 (3.5-5.1) mmol/L Chloride 112 H (98-107) mmol/L Carbon Dioxide 24.7 (21.0-32.0) mmol/L BUN 11 (7.0-18.0) mg/dL Creatinine 0.9 (0.8-1.3) mg/dL Est Cr Clr Drug Dosing 98.17 mL/min Estimated GFR (MDRD) > 60.0 ml/min Glucose 100 (74-106) mg/dL Calcium 8.8 (8.5-10.1) mg/dL Total Bilirubin (0.2-1.0) mg/dL AST (15-37) IU/L ALT (14-63) IU/L Alkaline Phosphatase (46-116) U/L Troponin I < 0.050 (0.000-0.056) ng/mL Total Protein (6.4-8.2) g/dL Albumin (3.4-5.0) g/dL Globulin (2.6-4.0) g/dL Albumin/Globulin Ratio (0.9-1.6) Urine Color Urine Appearance Urine pH (5.0-8.0) Ur Specific [place] (1.001-1.035) Urine Protein (NEGATIVE) mg/dL Urine Glucose (UA) (NEGATIVE) mg/dL Urine Ketones (NEGATIVE) mg/dL Urine Occult Blood (NEGATIVE) Urine Nitrite (NEGATIVE) Urine Bilirubin (NEGATIVE) Urine Urobilinogen (<2.0) EU/dL Ur Leukocyte Esterase (NEGATIVE) Blood Type Antibody Screen Crossmatch 10/20/18 Range/Units 10:00 WBC 6.75 (4.0-11.0) K/uL RBC 3.48 L (4.50-5.90) M/uL Hgb 11.0 L (13.0-17.0) g/dL Hct 31.5 L (38.0-50.0) % MCV 90.5 (80.0-98.0) fL MCH 31.6 (27.0-32.0) pg MCHC 34.9 (31.0-37.0) g/dL RDW Std Deviation 47.4 (28.0-62.0) fl RDW Coeff of Ghada 15 (11.0-15.0) % Plt Count 156 (150-400) K/uL MPV 10.50 (7.40-12.00) fL Neut % (Auto) (48.0-80.0) % Lymph % (Auto) (16.0-40.0) % Ritchie % (Auto) (0.0-15.0) % Eos % (Auto) (0.0-7.0) % Baso % (Auto) (0.0-1.5) % Neut # (Auto) (1.4-5.7) K/uL Lymph # (Auto) (0.6-2.4) K/uL Ritchie # (Auto) (0.0-0.8) K/uL Eos # (Auto) (0.0-0.7) K/uL Baso # (Auto) (0.0-0.1) K/uL Add Manual Diff YES Neutrophils % (Manual) 65 (48.0-80.0) % Lymphocytes % (Manual) 31 (16.0-40.0) % Monocytes % (Manual) 4 (0.0-15.0) % Nucleated RBC % 1.5 /100WBC Absolute Seg Neuts 4.4 (1.4-5.7) Lymphocytes # (Manual) 2.1 (0.6-2.4) Monocytes # (Manual) 0.3 (0.0-0.8) Nucleated RBCs # 0 K/uL INR Sodium (136-148) mmol/L Potassium (3.5-5.1) mmol/L Chloride (98-107) mmol/L Carbon Dioxide (21.0-32.0) mmol/L BUN (7.0-18.0) mg/dL Creatinine (0.8-1.3) mg/dL Est Cr Clr Drug Dosing mL/min Estimated GFR (MDRD) ml/min Glucose (74-106) mg/dL Calcium (8.5-10.1) mg/dL Total Bilirubin (0.2-1.0) mg/dL AST (15-37) IU/L ALT (14-63) IU/L Alkaline Phosphatase (46-116) U/L Troponin I (0.000-0.056) ng/mL Total Protein (6.4-8.2) g/dL Albumin (3.4-5.0) g/dL Globulin (2.6-4.0) g/dL Albumin/Globulin Ratio (0.9-1.6) Urine Color Urine Appearance Urine pH (5.0-8.0) Ur Specific [place] (1.001-1.035) Urine Protein (NEGATIVE) mg/dL Urine Glucose (UA) (NEGATIVE) mg/dL Urine Ketones (NEGATIVE) mg/dL Urine Occult Blood (NEGATIVE) Urine Nitrite (NEGATIVE) Urine Bilirubin (NEGATIVE) Urine Urobilinogen (<2.0) EU/dL Ur Leukocyte Esterase (NEGATIVE) Blood Type Antibody Screen Crossmatch Med Orders - Current: Current Medications Pantoprazole Sodium 40 mg/ (Sodium Chloride) 10 mls @ 300 mls/hr IV Q12HR [facility] Last Admin: 10/20/18 09:36 Dose: 300 mls/hr Metoprolol Tartrate (Lopressor) 25 mg PO BID@0700,1900 [facility] Last Admin: 10/20/18 07:53 Dose: 25 mg Nitroglycerin (Nitrostat) 0.4 mg SL Q5M PRN PRN Reason: Chest Pain Oxycodone HCl (Oxycodone) 20 mg PO Q4H PRN PRN Reason: Pain Last Admin: 10/20/18 07:57 Dose: 20 mg Oxycodone HCl (Oxycontin) 20 mg PO Q12HR@0700,1900 [facility] Last Admin: 10/20/18 07:00 Dose: Not Given Fenofibrate Nanocrystallized 145 Mg 1 each PO DAILY [facility] Discontinued Medications Sodium Chloride (Normal Saline) Confirm Administered Dose 20 mls @ as directed .ROUTE .STK-MED ONE Stop: 10/19/18 15:20 Last Admin: 10/19/18 15:25 Dose: 20 mls/hr Sodium Chloride (Normal Saline) 1,000 mls @ 999 mls/hr IV STAT ONE Stop: 10/19/18 16:34 Last Admin: 10/19/18 15:39 Dose: 999 mls/hr Metoprolol Tartrate (Lopressor) 25 mg PO BID [facility] Oxycodone HCl (Oxycontin) 20 mg PO Q12HR [facility] Pantoprazole Sodium (Protonix Iv) 80 mg IVPUSH .BOLUS ONE Stop: 10/19/18 15:07 Last Admin: 10/19/18 15:24 Dose: 80 mg Fenofibrate Nanocrystallized 145 Mg 1 each PO BEDTIME [facility] Last Admin: 10/20/18 07:42 Dose: Not Given - Exam General: Alert, Oriented, Cooperative, No Acute Distress HEENT: Pupils Equal, Pupils Reactive. No: Scleral Icterus Neck: Supple, Trachea Midline Lungs: Clear to Auscultation, Normal Respiratory Effort Cardiovascular: Regular Rate, Regular Rhythm, Murmurs (consistent with Aortic valve replacement). No: Tachycardia GI/Abdominal Exam: Normal Bowel Sounds, Soft, Non-Tender (Male) Exam: No Hernia Extremities: Normal Inspection, Normal Range of Motion Peripheral Pulses: 4+: Posterior Tibial (L), Posterior Tibial (R), Dorsalis Pedis (L), Dorsalis Pedis (R) Skin: Warm, Dry, Intact Neurological: No New Focal Deficit Psy/Mental Status: Alert, Normal Affect, Normal Mood Consult PN Assessment/Plan Procedures: Procedures ASSAY OF AMYLASE (04/11/16) ASSAY OF CK (CPK) (03/13/14) ASSAY OF LIPASE (04/11/16) ASSAY OF TROPONIN QUANT (05/08/15) CHEST X-RAY 1 VIEW FRONTAL (05/08/15) COMPLETE CBC W/AUTO DIFF WBC (04/11/16) COMPREHEN METABOLIC PANEL (04/11/16) CREATINE MB FRACTION (03/13/14) CT ABD & PELV W/CONTRAST (04/11/16) CT THORAX W/DYE (11/09/13) ELECTROCARDIOGRAM TRACING (05/08/15) EMERGENCY DEPT VISIT (07/01/17) EMERGENCY DEPT VISIT (04/11/16) EMERGENCY DEPT VISIT (11/24/14) EMERGENCY DEPT VISIT (03/13/14) FIBRIN DEGRADATION QUANT (05/08/15) GLYCOSYLATED HEMOGLOBIN TEST (03/13/14) IIV3 VACC NO PRSV 0.5 ML IM (03/13/14) KNEE ARTHROSCOPY/SURGERY (07/12/15) LIPID PANEL (03/13/14) MRI JNT OF LWR EXTRE W/O DYE (05/06/16) PROTHROMBIN TIME (04/11/16) PT EVAL LOW COMPLEX 20 MIN (06/19/16) ROUTINE VENIPUNCTURE (04/11/16) THER/PROPH/DIAG INJ IV PUSH (04/11/16) THERAPEUTIC ACTIVITIES (06/19/16) THERAPEUTIC EXERCISES (08/03/16) VASOPNEUMATIC DEVICE THERAPY (08/03/16) X-RAY EXAM KNEE 4 OR MORE (03/26/16) X-RAY EXAM OF KNEE 3 (06/11/16) (1) Anemia SNOMED Code(s): 444383964 Code(s): D64.9 - ANEMIA, UNSPECIFIED Priority: High Current Visit: Yes Qualifiers: Anemia type: unspecified type Qualified Code(s): D64.9 - Anemia, unspecified (2) Chest pain SNOMED Code(s): 24404231 Code(s): R07.9 - CHEST PAIN, UNSPECIFIED Priority: Medium Current Visit: Yes Qualifiers: Chest pain type: unspecified Qualified Code(s): R07.9 - Chest pain, unspecified (3) Heme positive stool SNOMED Code(s): 46574977 Code(s): R19.5 - OTHER FECAL ABNORMALITIES Priority: High Current Visit: Yes (4) Anticoagulated on Coumadin SNOMED Code(s): 98554441 Code(s): Z51.81 - ENCOUNTER FOR THERAPEUTIC DRUG LEVEL MONITORING; Z79.01 - HALF-WAY (CURRENT) USE OF ANTICOAGULANTS Priority: High Current Visit: No (5) Aortic valve replaced SNOMED Code(s): 1562589998197, 08701246, 5126464169334 Code(s): Z95.2 - PRESENCE OF PROSTHETIC HEART VALVE Priority: High Current Visit: No (6) Atypical chest pain SNOMED Code(s): 935741707 Code(s): R07.89 - OTHER CHEST PAIN Priority: Medium Current Visit: No Problem List Initiated/Reviewed/Updated: Yes My Orders Last 24 Hours: My Active Orders 10/20/18 Dinner Nothing Per Oral Diet [DIET] Plan: Esophagogastroduodenoscopy with biopsy. The operative procedure, along with the risks, including, but not limited to, bleeding, perforation, and the need for surgery were discussed with the patient who voices understanding, offers no questions and wishes to proceed.we'll plan to do this on October 21 pending results of his INR.
--- NOTE | 2018-10-20 18:32 | PN ---
THC Physician - Brief Progress [id number]/29/2019 18:27[facility] Conor Kline, CHAUNCEY - PRATIK (TINA) - PRATIK VLAENZUELAALIA VICTORBijuDate of Service 10/20/2018 18:27HPI/Event s of Note 43 yr old male admitted to ICU for atypical Chest pain from symptomatic anemia. He received a unit of FFEp, getting 2/2 PRBC with hemoglobin went up to 11 posttransfusion. He dropped again to 10.2 today. He is very stable hemodynamically.Resting. on nasal o2. looks stable. HR 66, blood pres sure 120/50Labs reviewed. INR 2.42Assessment plan:1. Symptomatic Anemia with hem ocult + status post blood transfusion2. Mechanical AVR, on warf at home, risk of clotting is lower with aortic valve. P atient received FFP yesterday but his INR is still elevated at 2.42. No signs of active bleed- Surge ry team going for EGD on Wednesday, I recommend using FFP before EGD.- on SCD as VTE prophylaxis.Interve ntions Major-Hemorrhage - evaluation and managementMinor-Communication with other healthcare provider s and/or family
[2018-10-21] MEDS: oxyCODONE 5 MG Tab PO PRN ×4 (00:24→16:26)
--- NOTE | 2018-10-21 03:48 | PN ---
THC Physician - Brief Progress [id number]/30/2019 03:45[facility] [place], [place] - PRATIK ([facility] - ALIA ALEXDate of Service 10/21/2018 03:45HPI/Event s of Note Discussed with RN: Pt with chronic pain and currently NPO.Paln: trial of morphine PRN.Inte rventions Minor-Communication with other healthcare providers and/or family
[2018-10-21] MEDS: Morphine 2 MG/ML Syringe IVPUSH PRN ×3 (04:10→13:49)
[2018-10-21 06:43] LABS: CHLORIDE,CL 107 mmol/L (98-107); SODIUM,NA 142 mmol/L (136-148)
[2018-10-21] MEDS: Metoprolol Tartrate 25 MG Tab PO SCH (06:52)
[2018-10-21] MEDS: Pantoprazole 40 MG in Sodium Chloride 0.9% 10 ML IV SCH (08:00)
--- NOTE | 2018-10-21 08:48 | PCM.PREANE ---
Preanesthetic Assessment - Anesthesia/Transfusion/Family Hx Anesthesia History: Prior Anesthesia Without Reaction Family History of Anesthesia Reaction: No Transfusion History: No Prior Transfusion(s) Intubation History: Unknown - Review of Systems General: No Symptoms Pulmonary: No Symptoms Cardiovascular: No Symptoms Gastrointestinal: Other (upper GI bleed) Neurological: No Symptoms Other: Reports: None - Physical Assessment Vital Signs: Last Vital Signs Temp 36.4 C 10/21/18 08:00 Pulse 57 L 10/21/18 08:00 Resp 19 10/21/18 08:00 BP 119/68 10/21/18 08:00 Pulse Ox 96 10/21/18 08:00 Height: 5 ft 8 in Weight: 99.1 kg ASA Class: 2 Mental Status: Alert & Oriented x3 Airway Class: Mallampati = 2 Dentition: Reports: Normal Dentition (grindd edges) Thyro-Mental Finger Breadths: 3 Mouth Opening Finger Breadths: 2 (small mouth) ROM/Head Extension: Limited/Partial Lungs: Clear to Auscultation, Normal Respiratory Effort Cardiovascular: Regular Rate, Regular Rhythm - Lab Values: Laboratory Last Values WBC 6.31 K/uL (4.0-11.0) 10/21/18 06:14 RBC 3.30 M/uL (4.50-5.90) L 10/21/18 06:14 Hgb 10.4 g/dL (13.0-17.0) L 10/21/18 06:14 Hct 30.3 % (38.0-50.0) L 10/21/18 06:14 MCV 91.8 fL (80.0-98.0) 10/21/18 06:14 MCH 31.5 pg (27.0-32.0) 10/21/18 06:14 MCHC 34.3 g/dL (31.0-37.0) 10/21/18 06:14 RDW Std Deviation 48.8 fl (28.0-62.0) 10/21/18 06:14 RDW Coeff of Ghada 15 % (11.0-15.0) 10/21/18 06:14 Plt Count 185 K/uL (150-400) 10/21/18 06:14 MPV 9.80 fL (7.40-12.00) 10/21/18 06:14 Neut % (Auto) 49.2 % (48.0-80.0) 10/21/18 06:14 Lymph % (Auto) 38.0 % (16.0-40.0) 10/21/18 06:14 Mccone % (Auto) 10.1 % (0.0-15.0) 10/21/18 06:14 Eos % (Auto) 2.2 % (0.0-7.0) 10/21/18 06:14 Baso % (Auto) 0.5 % (0.0-1.5) 10/21/18 06:14 Neut # (Auto) 3.1 K/uL (1.4-5.7) 10/21/18 06:14 Lymph # (Auto) 2.4 K/uL (0.6-2.4) 10/21/18 06:14 Mccone # (Auto) 0.6 K/uL (0.0-0.8) 10/21/18 06:14 Eos # (Auto) 0.1 K/uL (0.0-0.7) 10/21/18 06:14 Baso # (Auto) 0.0 K/uL (0.0-0.1) 10/21/18 06:14 Add Manual Diff YES 10/20/18 10:00 Neutrophils % (Manual) 65 % (48.0-80.0) 10/20/18 10:00 Lymphocytes % (Manual) 31 % (16.0-40.0) 10/20/18 10:00 Monocytes % (Manual) 4 % (0.0-15.0) 10/20/18 10:00 Nucleated RBC % 0.0 /100WBC 10/21/18 06:14 Absolute Seg Neuts 4.4 (1.4-5.7) 10/20/18 10:00 Lymphocytes # (Manual) 2.1 (0.6-2.4) 10/20/18 10:00 Monocytes # (Manual) 0.3 (0.0-0.8) 10/20/18 10:00 Nucleated RBCs # 0 K/uL 10/21/18 06:14 INR 1.44 10/21/18 06:14 Sodium 142 mmol/L (136-148) 10/21/18 06:14 Potassium 4.2 mmol/L (3.5-5.1) 10/21/18 06:14 Chloride 107 mmol/L (98-107) 10/21/18 06:14 Carbon Dioxide 27.4 mmol/L (21.0-32.0) 10/21/18 06:14 BUN 13 mg/dL (7.0-18.0) 10/21/18 06:14 Creatinine 1.0 mg/dL (0.8-1.3) 10/21/18 06:14 Est Cr Clr Drug Dosing 88.35 mL/min 10/21/18 06:14 Estimated GFR (MDRD) > 60.0 ml/min 10/21/18 06:14 Glucose 98 mg/dL (74-106) 10/21/18 06:14 Calcium 8.8 mg/dL (8.5-10.1) 10/21/18 06:14 Total Bilirubin 0.2 mg/dL (0.2-1.0) 10/19/18 14:45 AST 11 IU/L (15-37) L 10/19/18 14:45 ALT 17 IU/L (14-63) 10/19/18 14:45 Alkaline Phosphatase 48 U/L (46-116) 10/19/18 14:45 Troponin I < 0.050 ng/mL (0.000-0.056) 10/20/18 07:15 Total Protein 5.8 g/dL (6.4-8.2) L 10/19/18 14:45 Albumin 3.1 g/dL (3.4-5.0) L 10/19/18 14:45 Globulin 2.7 g/dL (2.6-4.0) 10/19/18 14:45 Albumin/Globulin Ratio 1.2 (0.9-1.6) 10/19/18 14:45 Urine Color YELLOW 10/19/18 16:25 Urine Appearance CLEAR 10/19/18 16:25 Urine pH 6.0 (5.0-8.0) 10/19/18 16:25 Ur Specific [place] 1.010 (1.001-1.035) 10/19/18 16:25 Urine Protein NEGATIVE mg/dL (NEGATIVE) 10/19/18 16:25 Urine Glucose (UA) NEGATIVE mg/dL (NEGATIVE) 10/19/18 16:25 Urine Ketones NEGATIVE mg/dL (NEGATIVE) 10/19/18 16:25 Urine Occult Blood NEGATIVE (NEGATIVE) 10/19/18 16:25 Urine Nitrite NEGATIVE (NEGATIVE) 10/19/18 16:25 Urine Bilirubin NEGATIVE (NEGATIVE) 10/19/18 16:25 Urine Urobilinogen 0.2 EU/dL (<2.0) 10/19/18 16:25 Ur Leukocyte Esterase NEGATIVE (NEGATIVE) 10/19/18 16:25 Blood Type A POSITIVE 10/19/18 15:24 Antibody Screen NEGATIVE 10/19/18 15:24 Crossmatch See Detail 10/19/18 15:24 - Allergies Allergies/Adverse Reactions: Allergies Allergy/AdvReac Type Severity Reaction Status Date / Time No Known Allergies Allergy Verified 10/20/18 01:15 - Blood Blood Available: No - Anesthesia Plan Pre-Op Medication Ordered: None - Acknowledgements Anesthesia Type Planned: MAC Pt an Appropriate Candidate for the Planned Anesthesia: Yes Alternatives and Risks of Anesthesia Discussed w Pt/Guardian: Yes Pt/Guardian Understands and Agrees with Anesthesia Plan: Yes PreAnesthesia Questionnaire HEENT History: Reports: None Cardiovascular History: Reports: Heart Valve Replacement Other Cardiovascular History: takes metoprolol since heart valve surgery, never hypertensive. Aortic valve, metallic mechanical placed 2011 Respiratory History: Reports: Sleep Apnea, TB Other Respiratory History: uses CPAP, was diagnosed with latent TB 3 months ago Gastrointestinal History: Reports: Other (See Below) (upper GI bleed requiring 4 PRBC unit transfusion) Genitourinary History: Reports: None Musculoskeletal History: Reports: Arthritis, Fracture Other Musculoskeletal History: hx of fx right arm Neurological History: Reports: Other (See Below) Other Neuro History: hx of motion sickness Psychiatric History: Reports: None Endocrine/Metabolic History: Reports: Obesity/BMI 30+ Hematologic History: Reports: Anemia, Anticoagulation Therapy Immunologic History: Reports: None Oncologic (Cancer) History: Reports: None Dermatologic History: Reports: None - Infectious Disease History Infectious Disease History: Reports: Chicken Pox, TB - Past Surgical History Head Surgeries/Procedures: Reports: None Cardiovascular Surgical History: Reports: Valve Replacement Respiratory Surgical History: Reports: None Endocrine Surgical History: Reports: None Neurological Surgical History: Reports: None Musculoskeletal Surgical History: Reports: Knee Replacement, Other (See Below) Other Musculoskeletal Surgeries/Procedures:: right TKA - SUBSTANCE USE Smoking Status *Q: Current Every Day Smoker Tobacco Use Within Last Twelve Months: Cigarettes Second Hand Smoke Exposure: No Recreational Drug Use History: No - HOME MEDS Home Medications: Home Meds Metoprolol Tartrate 25 mg PO BID 04/11/16 [History] Warfarin [Coumadin] 5 mg PO ASDIRECTED 04/11/16 [History] Warfarin [Coumadin] 7.5 mg PO ASDIRECTED 06/03/16 [History] oxyCODONE 20 mg PO Q4H PRN #80 tablet 06/03/16 [Rx] Fenofibrate Nanocrystallized [Fenofibrate] 160 mg PO DAILY 10/20/18 [History] Gabapentin [Neurontin] 300 mg PO BID 10/20/18 [History] - CURRENT (IN HOUSE) MEDS Current Meds: Current Medications Pantoprazole Sodium 40 mg/ (Sodium Chloride) 10 mls @ 300 mls/hr IV Q12HR [facility] Last Admin: 10/21/18 08:00 Dose: 300 mls/hr Cefoxitin Sodium 2 gm/ Premix 50 mls @ 100 mls/hr IV ONETIME ONE Stop: 10/21/18 11:29 Metoprolol Tartrate (Lopressor) 25 mg PO BID@0700,1900 [facility] Last Admin: 10/21/18 06:52 Dose: 25 mg Morphine Sulfate (Morphine) 1 mg IVPUSH Q4H PRN PRN Reason: Pain (moderate 4-6) Last Admin: 10/21/18 08:19 Dose: 1 mg Nitroglycerin (Nitrostat) 0.4 mg SL Q5M PRN PRN Reason: Chest Pain Oxycodone HCl (Oxycodone) 20 mg PO Q4H PRN PRN Reason: Pain Last Admin: 10/21/18 04:22 Dose: 20 mg Patient's Own Medication Fenofibrate 160 Mg 1 each PO DAILY [facility] Last Admin: 10/21/18 08:00 Dose: Not Given Discontinued Medications Sodium Chloride (Normal Saline) Confirm Administered Dose 20 mls @ as directed .ROUTE .STK-MED ONE Stop: 10/19/18 15:20 Last Admin: 10/19/18 15:25 Dose: 20 mls/hr Sodium Chloride (Normal Saline) 1,000 mls @ 999 mls/hr IV STAT ONE Stop: 10/19/18 16:34 Last Admin: 10/19/18 15:39 Dose: 999 mls/hr Metoprolol Tartrate (Lopressor) 25 mg PO BID [facility] Oxycodone HCl (Oxycontin) 20 mg PO Q12HR [facility] Oxycodone HCl (Oxycontin) 20 mg PO Q12HR@0700,1900 [facility] Last Admin: 10/20/18 20:27 Dose: Not Given Pantoprazole Sodium (Protonix Iv) 80 mg IVPUSH .BOLUS ONE Stop: 10/19/18 15:07 Last Admin: 10/19/18 15:24 Dose: 80 mg Fenofibrate Nanocrystallized 145 Mg 1 each PO BEDTIME [facility] Last Admin: 10/20/18 07:42 Dose: Not Given Fenofibrate Nanocrystallized 145 Mg 1 each PO DAILY [facility] Last Admin: 10/20/18 17:06 Dose: Not Given
[2018-10-21] MEDS ORDERED: FENOFIBRATE 160 MG PO SCH (09:00)
--- NOTE | 2018-10-21 09:34 | PCM.PN ---
- General Info Date of Service: 10/21/18 Subjective Update: The patient is a 48 year old male who was admitted for symptomatic anemia and heme positive stool. He is status post 4 units transfusion. Hemoglobin/vitals stable overnight. Patient denies any chest pain, shortness of breath, abdominal pain, black/bloody stools. Has been NPO since midnight for EGD today. Functional Status: Reports: Pain Controlled - Review of Systems General: Reports: No Symptoms HEENT: Reports: No Symptoms Pulmonary: Reports: No Symptoms Cardiovascular: Reports: No Symptoms Gastrointestinal: Reports: No Symptoms Genitourinary: Reports: No Symptoms Musculoskeletal: Reports: No Symptoms Skin: Reports: No Symptoms Neurological: Reports: No Symptoms Psychiatric: Reports: No Symptoms - Patient Data Vitals - Most Recent: Last Vital Signs Temp 97.5 F 10/21/18 08:00 Pulse 57 L 10/21/18 08:00 Resp 19 10/21/18 08:00 BP 119/68 10/21/18 08:00 Pulse Ox 96 10/21/18 08:00 Weight - Most Recent: 99.1 kg I&O - Last 24 Hours: Intake & Output 10/20/18 10/21/18 10/21/18 22:59 06:59 14:59 Intake Total 2608 1150 Output Total 2460 480 Balance 148 670 Lab Results Last 24 Hours: Laboratory Results - last 24 hr 10/19/18 10/20/18 10/20/18 Range/Units 15:24 10:00 17:03 WBC 6.75 (4.0-11.0) K/uL RBC 3.48 L (4.50-5.90) M/uL Hgb 11.0 L 10.2 L (13.0-17.0) g/dL Hct 31.5 L 29.1 L (38.0-50.0) % MCV 90.5 (80.0-98.0) fL MCH 31.6 (27.0-32.0) pg MCHC 34.9 (31.0-37.0) g/dL RDW Std Deviation 47.4 (28.0-62.0) fl RDW Coeff of Ghada 15 (11.0-15.0) % Plt Count 156 (150-400) K/uL MPV 10.50 (7.40-12.00) fL Neut % (Auto) (48.0-80.0) % Lymph % (Auto) (16.0-40.0) % Polk % (Auto) (0.0-15.0) % Eos % (Auto) (0.0-7.0) % Baso % (Auto) (0.0-1.5) % Neut # (Auto) (1.4-5.7) K/uL Lymph # (Auto) (0.6-2.4) K/uL Polk # (Auto) (0.0-0.8) K/uL Eos # (Auto) (0.0-0.7) K/uL Baso # (Auto) (0.0-0.1) K/uL Add Manual Diff YES Neutrophils % (Manual) 65 (48.0-80.0) % Lymphocytes % (Manual) 31 (16.0-40.0) % Monocytes % (Manual) 4 (0.0-15.0) % Nucleated RBC % 1.5 /100WBC Absolute Seg Neuts 4.4 (1.4-5.7) Lymphocytes # (Manual) 2.1 (0.6-2.4) Monocytes # (Manual) 0.3 (0.0-0.8) Nucleated RBCs # 0 K/uL INR Sodium (136-148) mmol/L Potassium (3.5-5.1) mmol/L Chloride (98-107) mmol/L Carbon Dioxide (21.0-32.0) mmol/L BUN (7.0-18.0) mg/dL Creatinine (0.8-1.3) mg/dL Est Cr Clr Drug Dosing mL/min Estimated GFR (MDRD) ml/min Glucose (74-106) mg/dL Calcium (8.5-10.1) mg/dL Crossmatch See Detail 10/21/18 10/21/18 10/21/18 Range/Units 06:14 06:14 06:14 WBC 6.31 (4.0-11.0) K/uL RBC 3.30 L (4.50-5.90) M/uL Hgb 10.4 L (13.0-17.0) g/dL Hct 30.3 L (38.0-50.0) % MCV 91.8 (80.0-98.0) fL MCH 31.5 (27.0-32.0) pg MCHC 34.3 (31.0-37.0) g/dL RDW Std Deviation 48.8 (28.0-62.0) fl RDW Coeff of Ghada 15 (11.0-15.0) % Plt Count 185 (150-400) K/uL MPV 9.80 (7.40-12.00) fL Neut % (Auto) 49.2 (48.0-80.0) % Lymph % (Auto) 38.0 (16.0-40.0) % Polk % (Auto) 10.1 (0.0-15.0) % Eos % (Auto) 2.2 (0.0-7.0) % Baso % (Auto) 0.5 (0.0-1.5) % Neut # (Auto) 3.1 (1.4-5.7) K/uL Lymph # (Auto) 2.4 (0.6-2.4) K/uL Polk # (Auto) 0.6 (0.0-0.8) K/uL Eos # (Auto) 0.1 (0.0-0.7) K/uL Baso # (Auto) 0.0 (0.0-0.1) K/uL Add Manual Diff Neutrophils % (Manual) (48.0-80.0) % Lymphocytes % (Manual) (16.0-40.0) % Monocytes % (Manual) (0.0-15.0) % Nucleated RBC % 0.0 /100WBC Absolute Seg Neuts (1.4-5.7) Lymphocytes # (Manual) (0.6-2.4) Monocytes # (Manual) (0.0-0.8) Nucleated RBCs # 0 K/uL INR 1.44 Sodium 142 (136-148) mmol/L Potassium 4.2 (3.5-5.1) mmol/L Chloride 107 (98-107) mmol/L Carbon Dioxide 27.4 (21.0-32.0) mmol/L BUN 13 (7.0-18.0) mg/dL Creatinine 1.0 (0.8-1.3) mg/dL Est Cr Clr Drug Dosing 88.35 mL/min Estimated GFR (MDRD) > 60.0 ml/min Glucose 98 (74-106) mg/dL Calcium 8.8 (8.5-10.1) mg/dL Crossmatch Med Orders - Current: Current Medications Pantoprazole Sodium 40 mg/ (Sodium Chloride) 10 mls @ 300 mls/hr IV Q12HR [facility] Last Admin: 10/21/18 08:00 Dose: 300 mls/hr Cefoxitin Sodium 2 gm/ Premix 50 mls @ 100 mls/hr IV ONETIME ONE Stop: 10/21/18 11:29 Metoprolol Tartrate (Lopressor) 25 mg PO BID@0700,1900 [facility] Last Admin: 10/21/18 06:52 Dose: 25 mg Morphine Sulfate (Morphine) 1 mg IVPUSH Q4H PRN PRN Reason: Pain (moderate 4-6) Last Admin: 10/21/18 08:19 Dose: 1 mg Nitroglycerin (Nitrostat) 0.4 mg SL Q5M PRN PRN Reason: Chest Pain Oxycodone HCl (Oxycodone) 20 mg PO Q4H PRN PRN Reason: Pain Last Admin: 10/21/18 04:22 Dose: 20 mg Patient's Own Medication Fenofibrate 160 Mg 1 each PO DAILY [facility] Last Admin: 10/21/18 08:00 Dose: Not Given Discontinued Medications Sodium Chloride (Normal Saline) Confirm Administered Dose 20 mls @ as directed .ROUTE .STK-MED ONE Stop: 10/19/18 15:20 Last Admin: 10/19/18 15:25 Dose: 20 mls/hr Sodium Chloride (Normal Saline) 1,000 mls @ 999 mls/hr IV STAT ONE Stop: 10/19/18 16:34 Last Admin: 10/19/18 15:39 Dose: 999 mls/hr Metoprolol Tartrate (Lopressor) 25 mg PO BID [facility] Oxycodone HCl (Oxycontin) 20 mg PO Q12HR [facility] Oxycodone HCl (Oxycontin) 20 mg PO Q12HR@0700,1900 [facility] Last Admin: 10/20/18 20:27 Dose: Not Given Pantoprazole Sodium (Protonix Iv) 80 mg IVPUSH .BOLUS ONE Stop: 10/19/18 15:07 Last Admin: 10/19/18 15:24 Dose: 80 mg Fenofibrate Nanocrystallized 145 Mg 1 each PO BEDTIME [facility] Last Admin: 10/20/18 07:42 Dose: Not Given Fenofibrate Nanocrystallized 145 Mg 1 each PO DAILY [facility] Last Admin: 10/20/18 17:06 Dose: Not Given - Exam General: Alert, Oriented, Cooperative HEENT: Pupils Equal, Pupils Reactive Lungs: Clear to Auscultation, Normal Respiratory Effort Cardiovascular: Regular Rate, Regular Rhythm GI/Abdominal Exam: Normal Bowel Sounds, Soft, Non-Tender, No Distention Extremities: No Pedal Edema Skin: Warm, Dry, Intact Neurological: No New Focal Deficit Psy/Mental Status: Alert, Normal Affect, Normal Mood - Problem List Review Problem List Initiated/Reviewed/Updated: Yes - My Orders Last 24 Hours: My Active Orders 10/21/18 09:00 Patient's Own Medication [Ptom] 1 each PO DAILY 10/21/18 09:06 Transfer Patient (Change bed) [ADT] Routine - Plan Plan:: 1. Chest pain likely related to anemia-Resolved- chest pain resolved after blood transfusions, troponins trended and were negative x 3. 2. Symptomatic anemia with positive Hemoccult s/p RBC tranfusions. She has recived total of 4 units of blood. Hemoglobin stable overnight 10.2 to 10.4. Continue Protonix IV 40 mg BID. EGD today, possible outpatient colonoscopy dependant on resutls of EGD. Warfarin currently being held. Will bridge warfarin with lovenox starting ___. 3. Aortic valve replacement-continue metoprolol but hold anti-coagulation
[2018-10-21] MEDS ORDERED: Midazolam 1 MG/ML 2 ML SDV ONE (10:15)
[2018-10-21] MEDS ORDERED: Glycopyrrolate 0.2 MG/ML SDV ONE (10:15)
[2018-10-21] MEDS ORDERED: Lidocaine 2% 5 ML SDV ONE (10:15)
[2018-10-21] MEDS ORDERED: Propofol 200 MG/20 ML SDV ONE (10:15)
[2018-10-21] MEDS ORDERED: cefOXitin 2 GM in Premix Bag 1 BAG IV ONE (11:00)
--- NOTE | 2018-10-21 11:59 | PCM.OPNOTE ---
- General Post-Op/Procedure Note Date of Surgery/Procedure: 10/21/18 Operative Procedure(s): Esophagogastroduodenoscopy with gastric and esophageal biopsy Pre Op Diagnosis: Upper GI bleed with anemia Post-Op Diagnosis: Pyloric channel ulcer. Gastritis. Anesthesia Technique: MAC (ASA III) Primary Surgeon: Marcelo Ruffin Condition: Stable Free Text/Narrative:: Intake & Output 10/20/18 10/21/18 10/21/18 19:59 03:59 11:59 Intake Total 2608 1150 Output Total 2460 480 Balance 148 670 DICTATION [id number] CPT CODE 01926
--- NOTE | 2018-10-21 12:07 | PCM.POSTAN ---
POST ANESTHESIA ASSESSMENT - MENTAL STATUS Mental Status: Alert, Oriented - VITAL SIGNS Vital Signs: Last Vital Signs Temp 36.4 C 10/21/18 11:45 Pulse 66 10/21/18 12:00 Resp 17 10/21/18 12:00 BP 118/72 10/21/18 12:00 Pulse Ox 98 10/21/18 12:00 - RESPIRATORY Respiratory Status: Respiratory Rate WNL, Airway Patent, O2 Saturation Stable - CARDIOVASCULAR CV Status: Pulse Rate WNL, Blood Pressure Stable - GASTROINTESTINAL GI Status: No Symptoms - PAIN Pain Score: 0 - POST OP HYDRATION Hydration Status: Adequate & Stable - OBSERVATIONS Free Text/Narrative:: no anesthesia problems
--- NOTE | 2018-10-21 12:35 | OR ---
SURGEON: Marcelo Ruffin M.D. DATE OF PROCEDURE: 10/21/2018 OPERATION PERFORMED: Esophagogastroduodenoscopy with gastric and esophageal biopsies. PRIMARY SURGEON: Marcelo Ruffin MD. ANESTHESIA: MAC. ASA CLASSIFICATION: III. PREOPERATIVE DIAGNOSES: 1. Recent gastrointestinal bleed with profound anemia requiring multiple transfusion. 2. Chronic Coumadin therapy secondary to prosthetic aortic valve. POSTOPERATIVE DIAGNOSES: 1. Acute gastritis. 2. Pyloric channel ulcer. DESCRIPTION OF PROCEDURE: The patient was taken to the endoscopy room and positioned on the endoscopy table in a supine position. Time-out was called for appropriate identification of the patient and procedure. Monitored anesthesia care was provided. The bite block was placed between the patient's teeth. The gastroscope was inserted through the bite block into the oropharynx and advanced without difficulty through the esophagus and stomach into the duodenum where examination was now carried out in a retrograde fashion. There was a small amount of blood present in the proximal duodenum and in the pyloric channel. I did not see any acute ulceration in the duodenum itself. There was a small, perhaps 2 to 3 mm, pyloric channel ulcer with a little bit of fresh blood, but no significant arterial bleed at this point in time. Certainly, the stomach was not filled with blood. Antral biopsies were obtained to look for the presence of Helicobacter pylori. The gastroscope was retroflexed to visualize the proximal stomach. No tumors or polyps were seen and there were no ulcerations noted proximally. The gastroscope was then straightened and slowly withdrawn. The GE junction is sharply defined and shows no acute inflammatory changes. There are some minor columnarization changes and separate biopsies were obtained. The esophagus itself demonstrates good contractility. No mid or proximal lesions were identified. Vocal cords were visualized both on insertion and withdrawal and noted to move symmetrically. The patient tolerated the procedure well and was taken to recovery room in stable condition. BILL / FAHEEM /[id number]
[2018-10-21] MEDS ORDERED: Acetaminophen 325 MG Tab PO PRN (13:35)
--- NOTE | 2018-10-21 15:39 | PN ---
THC Physician - Brief Progress [id number]/30/2019 15:37[facility] Conor Kline, CHAUNCEY - PRATIK (TINA) - ALIA ALEXDate of Service 10/21/2018 15:37HPI/Event s of Note Patient status post EGD today with the finding consistent with peptic ulcer disease. No ac tive bleeding. The plan is that to have aggressive medical therapy. Biopsy was done and sent for te sting including bacterial infection H. pylori.Patient is much more stable. Last hemoglobin was 10.2. As the plan is to continue monitoring him closely. In my opinion he can be transferred to the [facility] if his next hemoglobin planned at 4 PM this is stable. Patient still off Coumadin until his underl jeremiah bleed is controlled and treated.Interventions Major-Other: GI bleedMinor-Communication with [facility] healthcare providers and/or family
[2018-10-21 16:21] VITALS: BP 148/88
--- NOTE | 2018-10-21 17:06 | PCM.DCSUM1 ---
<Guera Palm - Last Filed: 10/21/18 17:40> Discharge Summary - Hospital Course HPI Initial Comments: Admission Date:10/19/18 Discharge Date:10/21/18 Admission Diagnosis: 1. Chest pain 2. Symptomatic anemia with heme positive stool Discharge Diagnosis: 1. Chest pain- resolved 2. Symptomatic anemia with heme positive stool s/p transfusion -4 units- stable hemoglobin 3. Pyloric ulcer 4. Aortic valve replacement on snf anticoagulation Procedures: EGD Consults: Dr. Ruffin, general surgery Hospital Course: The patient is a 48-year-old male who presented to the ER with chest pain and fatigue. In the ER workup for a anemia with a hemoglobin of 6.2 , positive Hemoccult and orthostatic vital signs. Initial troponin was negative. Chest x-ray was negative for acute cardiopulmonary process. An EKG showed normal sinus rhythm. In the ER he was given a bolus of pantoprazole and 2 units of blood ordered. He was admitted to the ICU and Dr. Ruffin, general surgery was consulted. His hemoglobin improved from 6.2 to 7.9 after the 2 units of blood. He was given an additional 2 units and his hemoglobin improved to 11. The next day his hemoglobin dropped slightly to 10.2. The following morning before his EGD his hemoglobin was 10.4. The patient had a EGD performed by Dr. Ruffin on 10/21/18, he found a pyloric ulcer. Repeat hemoglobin several hours after the procedure, the hemoglobin was stable at 11. During his stay the patient was continued on Protonix. He patient has a mechanical aortic valve requiring anticoagulation with warfarin. His warfarin was held due concern about GI bleed and his INR needed to be below 2 to have the EGD performed. For the patient's chest pain, his troponins were trended and negative x 3 but his pain resolved after the first 2 units of blood, he remained chest pain free the rest of his admission. Per Dr. Ruffin's recommendation the patient was discharged home on twice daily Nexium, Carafate, and iron supplementation. The patient will also be sent home on Lovenox for 3 days, he is then supposed to restart his warfarin. The patient is already established with the Coumadin clinic at [place]. He will present to the Coumadin clinic on 10/26/18 for INR check. By day of discharge, the patient was requesting to be discharged, at that time his vitals and hemoglobin were both stable. Disposition: Home Discharge Condition: vitals stable, tolerating oral diet, ambulating without difficulty, symptom improvement Discharge Instructions: regular diet as tolerated, activity as tolerated, take medications as prescribed. Symptoms to report to physician include fever/chills , chest pain, shortness of breath, abdominal pain, bloody stools erythema, drainage/discharge, or not improving as expected. Discharge Medications: Metoprolol Tartrate 25 mg PO BID Warfarin [Coumadin] 5 mg PO ASDIRECTED Warfarin [Coumadin] 7.5 mg PO ASDIRECTED oxyCODONE 20 mg PO Q4H PRN Fenofibrate Nanocrystallized [Fenofibrate] 160 mg PO DAILY Gabapentin [Neurontin] 300 mg PO BID] Enoxaparin [Lovenox] 100 mg SQ BID 3 Days Esomeprazole Magnesium 40 mg PO BID Ferrous Sulfate [Iron] 325 mg PO DAILY Sucralfate [Carafate] 1 gm PO QID Follow-up: 1. PCP- Dr. Lucia 2. General surgery-Dr. Ruffin - Discharge Data Discharge Date: 10/21/18 Discharge Disposition: Home, Self-Care 01 Condition: Stable - Patient Summary/Data Operative Procedure(s) Performed: Esophagogastroduodenoscopy with gastric and esophageal biopsy Consults: Consultations 10/19/18 16:29 Consult to Physician [CONS] Stat - Patient Instructions Diet: Usual Diet as Tolerated Activity, Other: May return to work on Wednesday Showering/Bathing: May Shower Notify Provider of: Fever, Increased Pain, Swelling and Redness, Drainage, Nausea and/or Vomiting Other/Special Instructions: additional symptoms include chest pain, shortness of breath, abdominal pain, bloody stools, or feeling like you are going to pass out. You will use lovenox starting tomorrow for a total of three days, resume warfarin dose on Wednesday, INR check at [facility] on Wednesday. May return to work on Wednesday10/25/18 - Discharge Plan *PRESCRIPTION DRUG MONITORING PROGRAM REVIEWED*: No *COPY OF PRESCRIPTION DRUG MONITORING REPORT IN PATIENT GREGORY: No Prescriptions/Med Rec: Enoxaparin [Lovenox] 100 mg SQ BID 3 Days #6 syringe Esomeprazole Magnesium 40 mg PO BID 14 Days #28 capsule. Ferrous Sulfate [Iron] 325 mg PO DAILY 14 Days #14 tablet Sucralfate [Carafate] 1 gm PO QID 14 Days #560 ml Home Medications: Home Meds Metoprolol Tartrate 25 mg PO BID 04/11/16 [History] Warfarin [Coumadin] 5 mg PO ASDIRECTED 04/11/16 [History] Warfarin [Coumadin] 7.5 mg PO ASDIRECTED 06/03/16 [History] oxyCODONE 20 mg PO Q4H PRN #80 tablet 06/03/16 [Rx] Fenofibrate Nanocrystallized [Fenofibrate] 160 mg PO DAILY 10/20/18 [History] Gabapentin [Neurontin] 300 mg PO BID 10/20/18 [History] Enoxaparin [Lovenox] 100 mg SQ BID 3 Days #6 syringe 10/21/18 [Rx] Esomeprazole Magnesium 40 mg PO BID 14 Days #28 capsule. 10/21/18 [Rx] Ferrous Sulfate [Iron] 325 mg PO DAILY 14 Days #14 tablet 10/21/18 [Rx] Sucralfate [Carafate] 1 gm PO QID 14 Days #560 ml 10/21/18 [Rx] Patient Handouts: Blood Transfusion, Adult, [id number], Esophagogastroduodenoscopy, Anemia, Nonspecific Chest Pain, [id number] Referrals: [facility] [Outside] Marcelo Ruffin MD [Physician] - 11/01/18 10:00 am José Miguel Bunn MD [Physician] - 10/31/18 11:45 am - Discharge Summary/Plan Comment DC Time >30 min.: No - Patient Data Vitals - Most Recent: Last Vital Signs Temp 97.3 F 10/21/18 16:00 Pulse 67 10/21/18 16:00 Resp 17 10/21/18 16:00 BP 148/88 H 10/21/18 16:00 Pulse Ox 100 10/21/18 16:00 Weight - Most Recent: 99.1 kg I&O - Last 24 hours: Intake & Output 10/21/18 10/21/18 10/21/18 06:59 14:59 22:59 Intake Total 1150 550 Output Total 480 850 Balance 670 -300 Lab Results - Last 24 hrs: Laboratory Results - last 24 hr 10/20/18 10/21/1810/21/19 Range/Units 17:03 06:14 06:14 WBC 6.31 (4.0-11.0) K/uL RBC 3.30 L (4.50-5.90) M/uL Hgb 10.2 L 10.4 L (13.0-17.0) g/dL Hct 29.1 L 30.3 L (38.0-50.0) % MCV 91.8 (80.0-98.0) fL MCH 31.5 (27.0-32.0) pg MCHC 34.3 (31.0-37.0) g/dL RDW Std Deviation 48.8 (28.0-62.0) fl RDW Coeff of Ghada 15 (11.0-15.0) % Plt Count 185 (150-400) K/uL MPV 9.80 (7.40-12.00) fL Neut % (Auto) 49.2 (48.0-80.0) % Lymph % (Auto) 38.0 (16.0-40.0) % Childress % (Auto) 10.1 (0.0-15.0) % Eos % (Auto) 2.2 (0.0-7.0) % Baso % (Auto) 0.5 (0.0-1.5) % Neut # (Auto) 3.1 (1.4-5.7) K/uL Lymph # (Auto) 2.4 (0.6-2.4) K/uL Childress # (Auto) 0.6 (0.0-0.8) K/uL Eos # (Auto) 0.1 (0.0-0.7) K/uL Baso # (Auto) 0.0 (0.0-0.1) K/uL Nucleated RBC % 0.0 /100WBC Nucleated RBCs # 0 K/uL INR 1.44 Sodium (136-148) mmol/L Potassium (3.5-5.1) mmol/L Chloride (98-107) mmol/L Carbon Dioxide (21.0-32.0) mmol/L BUN (7.0-18.0) mg/dL Creatinine (0.8-1.3) mg/dL Est Cr Clr Drug Dosing mL/min Estimated GFR (MDRD) ml/min Glucose (74-106) mg/dL Calcium (8.5-10.1) mg/dL 10/21/18 10/21/18 Range/Units 06:14 15:58 WBC (4.0-11.0) K/uL RBC (4.50-5.90) M/uL Hgb 11.0 L (13.0-17.0) g/dL Hct 31.7 L (38.0-50.0) % MCV (80.0-98.0) fL MCH (27.0-32.0) pg MCHC (31.0-37.0) g/dL RDW Std Deviation (28.0-62.0) fl RDW Coeff of Ghada (11.0-15.0) % Plt Count (150-400) K/uL MPV (7.40-12.00) fL Neut % (Auto) (48.0-80.0) % Lymph % (Auto) (16.0-40.0) % Childress % (Auto) (0.0-15.0) % Eos % (Auto) (0.0-7.0) % Baso % (Auto) (0.0-1.5) % Neut # (Auto) (1.4-5.7) K/uL Lymph # (Auto) (0.6-2.4) K/uL Childress # (Auto) (0.0-0.8) K/uL Eos # (Auto) (0.0-0.7) K/uL Baso # (Auto) (0.0-0.1) K/uL Nucleated RBC % /100WBC Nucleated RBCs # K/uL INR Sodium 142 (136-148) mmol/L Potassium 4.2 (3.5-5.1) mmol/L Chloride 107 (98-107) mmol/L Carbon Dioxide 27.4 (21.0-32.0) mmol/L BUN 13 (7.0-18.0) mg/dL Creatinine 1.0 (0.8-1.3) mg/dL Est Cr Clr Drug Dosing 88.35 mL/min Estimated GFR (MDRD) > 60.0 ml/min Glucose 98 (74-106) mg/dL Calcium 8.8 (8.5-10.1) mg/dL Med Orders - Current: Current Medications Acetaminophen (Tylenol) 650 mg PO Q4H PRN PRN Reason: Pain Pantoprazole Sodium 40 mg/ (Sodium Chloride) 10 mls @ 300 mls/hr IV Q12HR [facility] Last Admin: 10/21/18 08:00 Dose: 300 mls/hr Metoprolol Tartrate (Lopressor) 25 mg PO BID@0700,1900 [facility] Last Admin: 10/21/18 06:52 Dose: 25 mg Morphine Sulfate (Morphine) 1 mg IVPUSH Q4H PRN PRN Reason: Pain (moderate 4-6) Last Admin: 10/21/18 13:49 Dose: 1 mg Nitroglycerin (Nitrostat) 0.4 mg SL Q5M PRN PRN Reason: Chest Pain Oxycodone HCl (Oxycodone) 20 mg PO Q4H PRN PRN Reason: Pain Last Admin: 10/21/18 16:26 Dose: 20 mg Patient's Own Medication Fenofibrate 160 Mg 1 each PO DAILY [facility] Last Admin: 10/21/18 08:00 Dose: Not Given Discontinued Medications Glycopyrrolate (Robinul) Confirm Administered Dose 0.2 mg .ROUTE .STK-MED ONE Stop: 10/21/18 10:16 Sodium Chloride (Normal Saline) Confirm Administered Dose 20 mls @ as directed .ROUTE .STK-MED ONE Stop: 10/19/18 15:20 Last Admin: 10/19/18 15:25 Dose: 20 mls/hr Sodium Chloride (Normal Saline) 1,000 mls @ 999 mls/hr IV STAT ONE Stop: 10/19/18 16:34 Last Admin: 10/19/18 15:39 Dose: 999 mls/hr Cefoxitin Sodium 2 gm/ Premix 50 mls @ 100 mls/hr IV ONETIME ONE Stop: 10/21/18 11:29 Last Admin: 10/21/18 12:18 Dose: Not Given Lidocaine (Xylocaine-Mpf 2%) Confirm Administered Dose 5 ml .ROUTE .STK-MED ONE Stop: 10/21/18 10:16 Metoprolol Tartrate (Lopressor) 25 mg PO BID [facility] Midazolam HCl (Versed 1 Mg/Ml) Confirm Administered Dose 2 mg .ROUTE .STK-MED ONE Stop: 10/21/18 10:16 Oxycodone HCl (Oxycontin) 20 mg PO Q12HR [facility] Oxycodone HCl (Oxycontin) 20 mg PO Q12HR@0700,1900 [facility] Last Admin: 10/20/18 20:27 Dose: Not Given Pantoprazole Sodium (Protonix Iv) 80 mg IVPUSH .BOLUS ONE Stop: 10/19/18 15:07 Last Admin: 10/19/18 15:24 Dose: 80 mg Fenofibrate Nanocrystallized 145 Mg 1 each PO BEDTIME [facility] Last Admin: 10/20/18 07:42 Dose: Not Given Fenofibrate Nanocrystallized 145 Mg 1 each PO DAILY [facility] Last Admin: 10/20/18 17:06 Dose: Not Given Propofol (Diprivan 20 Ml) Confirm Administered Dose 200 mg .ROUTE .STK-MED ONE Stop: 10/21/18 10:16 <Miah Villarreal - Last Filed: 10/24/18 11:25> Discharge Summary - Patient Summary/Data Consults: Consultations 10/19/18 16:29 Consult to Physician [CONS] Stat - Patient Data Vitals - Most Recent: Last Vital Signs Temp 36.3 C 10/21/18 16:15 Pulse 67 10/21/18 16:15 Resp 17 10/21/18 16:15 BP 148/88 H 10/21/18 16:15 Pulse Ox 100 10/21/18 16:15 Med Orders - Current: Current Medications Discontinued Medications Acetaminophen (Tylenol) 650 mg PO Q4H PRN PRN Reason: Pain Glycopyrrolate (Robinul) Confirm Administered Dose 0.2 mg .ROUTE .STK-MED ONE Stop: 10/21/18 10:16 Sodium Chloride (Normal Saline) Confirm Administered Dose 20 mls @ as directed .ROUTE .STK-MED ONE Stop: 10/19/18 15:20 Last Admin: 10/19/18 15:25 Dose: 20 mls/hr Sodium Chloride (Normal Saline) 1,000 mls @ 999 mls/hr IV STAT ONE Stop: 10/19/18 16:34 Last Admin: 10/19/18 15:39 Dose: 999 mls/hr Pantoprazole Sodium 40 mg/ (Sodium Chloride) 10 mls @ 300 mls/hr IV Q12HR [facility] Last Admin: 10/21/18 08:00 Dose: 300 mls/hr Cefoxitin Sodium 2 gm/ Premix 50 mls @ 100 mls/hr IV ONETIME ONE Stop: 10/21/18 11:29 Last Admin: 10/21/18 12:18 Dose: Not Given Lidocaine (Xylocaine-Mpf 2%) Confirm Administered Dose 5 ml .ROUTE .STK-MED ONE Stop: 10/21/18 10:16 Metoprolol Tartrate (Lopressor) 25 mg PO BID [facility] Metoprolol Tartrate (Lopressor) 25 mg PO BID@0700,1900 [facility] Last Admin: 10/21/18 06:52 Dose: 25 mg Midazolam HCl (Versed 1 Mg/Ml) Confirm Administered Dose 2 mg .ROUTE .STK-MED ONE Stop: 10/21/18 10:16 Morphine Sulfate (Morphine) 1 mg IVPUSH Q4H PRN PRN Reason: Pain (moderate 4-6) Last Admin: 10/21/18 13:49 Dose: 1 mg Nitroglycerin (Nitrostat) 0.4 mg SL Q5M PRN PRN Reason: Chest Pain Oxycodone HCl (Oxycodone) 20 mg PO Q4H PRN PRN Reason: Pain Last Admin: 10/21/18 16:26 Dose: 20 mg Oxycodone HCl (Oxycontin) 20 mg PO Q12HR [facility] Oxycodone HCl (Oxycontin) 20 mg PO Q12HR@0700,1900 [facility] Last Admin: 10/20/18 20:27 Dose: Not Given Pantoprazole Sodium (Protonix Iv) 80 mg IVPUSH .BOLUS ONE Stop: 10/19/18 15:07 Last Admin: 10/19/18 15:24 Dose: 80 mg Fenofibrate Nanocrystallized 145 Mg 1 each PO BEDTIME [facility] Last Admin: 10/20/18 07:42 Dose: Not Given Fenofibrate Nanocrystallized 145 Mg 1 each PO DAILY [facility] Last Admin: 10/20/18 17:06 Dose: Not Given Patient's Own Medication Fenofibrate 160 Mg 1 each PO DAILY [facility] Last Admin: 10/21/18 08:00 Dose: Not Given Propofol (Diprivan 20 Ml) Confirm Administered Dose 200 mg .ROUTE .STK-MED ONE Stop: 10/21/18 10:16 - Free Text/Narrative Note: I have evaluated the patient. I have discussed findings and treatment plan with resident. I agree with the assessment and plan outlined in the following note.
--- NOTE | 2018-10-21 18:00 | PCM48HPAN ---
Post Anesthesia Note - EVALUATION WITHIN 48HRS OF ANESTHETIC Vital Signs in Normal Range: Yes Patient Participated in Evaluation: Yes Respiratory Function Stable: Yes Airway Patent: Yes Cardiovascular Function Stable: Yes Hydration Status Stable: Yes Pain Control Satisfactory: Yes Nausea and Vomiting Control Satisfactory: Yes Mental Status Recovered: Yes Vital Signs: Last Vital Signs Temp 36.3 C 10/21/18 16:15 Pulse 67 10/21/18 16:15 Resp 17 10/21/18 16:15 BP 148/88 H 10/21/18 16:15 Pulse Ox 100 10/21/18 16:15 - COMMENTS/OBSERVATIONS Free Text/Narrative:: no anesthesia problems
== END 2018-10-21 17:30 | disposition home or self-care (01) | DRG 663 ==
LOC: MW.ED 14:29 → MW.ICU 16:56
PROVIDERS: ADMIT Internal Medicine; ATTEND Internal Medicine
PROC: 30233N1 Transfusion of Nonautologous Red Blood Cells into Peripheral Vein, Percutaneous Approach (ICD-10-PCS; principal; 2018-10-19)
PROC: 0DB68ZX Excision of Stomach, Via Natural or Artificial Opening Endoscopic, Diagnostic (ICD-10-PCS; 2018-10-21)
DX: D64.9 Anemia, unspecified (principal); M19.91 Primary osteoarthritis, unspecified site; E66.9 Obesity, unspecified; K29.00 Acute gastritis without bleeding; F17.210 Nicotine dependence, cigarettes, uncomplicated; Z96.651 Presence of right artificial knee joint; R19.5 Other fecal abnormalities; Z79.01 Long term (current) use of anticoagulants; Z79.899 Other long term (current) drug therapy; Z95.2 Presence of prosthetic heart valve; Z68.33 Body mass index [BMI] 33.0-33.9, adult
CPT/HCPCS: 36415; 36430; 71045; 71045-26; 80048; 80053; 81003; 84484; 85014; 85018; 85025; 85610; 86850; 86900; 86901; 86920; 86921; 86922; 93005; 96361; 96374; 99285-25; A9270-GY; C9113; J2001; J2250; J2270; J2704; J3490; J7040; J7050; P9016

== ENCOUNTER 2019-04-03 09:45 | Day surgery (SDC) | payer BC ==
[~2019-04-03 09:45] MED LIST changes: -Acetaminophen 500 MG Tab PO SCH; -Famotidine 20 MG/2 ML SDV IVPUSH SCH; +Lactated Ringers 1,000 ML IV SCH; -Ropivacaine 49.25 ML, EPINEPHrine 0.5 MG, cloNIDine 80 MCG in Sodium Chloride 0.9% 49.4... INJECT ONE; -Scopolamine 1.5 MG Transdermal Patch TRDERM SCH; -ceFAZolin 2 GM in Premix Bag 1 BAG IV SCH; +cefOXitin 2 GM in Premix Bag 1 BAG IV ONE; -oxyCODONE ER 20 MG TAB.ER PO SCH
[2019-04-03] MEDS ORDERED: Propofol 200 MG/20 ML SDV ONE ×2 (09:47→13:45)
[2019-04-03] MEDS ORDERED: cefOXitin 100 ML ONE (09:47)
[2019-04-03] MEDS ORDERED: fentaNYL 100 MCG/2 ML SDV ONE (09:47)
--- NOTE | 2019-04-03 11:54 | PCM.PREANE ---
Preanesthetic Assessment - Anesthesia/Transfusion/Family Hx Anesthesia History: Prior Anesthesia Without Reaction Family History of Anesthesia Reaction: No Transfusion History: Prior Transfusion Without Reaction Intubation History: Unknown - Review of Systems General: No Symptoms Pulmonary: No Symptoms Cardiovascular: No Symptoms Gastrointestinal: No Symptoms, Other (pyloric channel ulcer 12/10) Neurological: No Symptoms Other: Reports: None - Physical Assessment Vital Signs: Last Vital Signs Temp 36.3 C 04/03/19 11:10 Pulse 66 04/03/19 11:10 Resp 16 04/03/19 11:10 BP 114/77 04/03/19 11:10 Pulse Ox 97 04/03/19 11:10 Height: 5 ft 8 in Weight: 107.048 kg ASA Class: 2 Mental Status: Alert & Oriented x3 Airway Class: Mallampati = 2 Dentition: Reports: Normal Dentition (severely grinded teeth) Thyro-Mental Finger Breadths: 3 Mouth Opening Finger Breadths: 3 ROM/Head Extension: Full Lungs: Clear to Auscultation, Normal Respiratory Effort Cardiovascular: Regular Rate, Regular Rhythm - Allergies Allergies/Adverse Reactions: Allergies Allergy/AdvReac Type Severity Reaction Status Date / Time No Known Allergies Allergy Verified 03/28/19 09:13 - Blood Blood Available: No - Anesthesia Plan Pre-Op Medication Ordered: None - Acknowledgements Anesthesia Type Planned: MAC Pt an Appropriate Candidate for the Planned Anesthesia: Yes Alternatives and Risks of Anesthesia Discussed w Pt/Guardian: Yes Pt/Guardian Understands and Agrees with Anesthesia Plan: Yes PreAnesthesia Questionnaire HEENT History: Reports: None Cardiovascular History: Reports: Heart Valve Replacement Other Cardiovascular History: takes metoprolol since heart valve surgery, never hypertensive. Aortic valve, metallic mechanical placed 2011. stopped warfarin on , on lovenox since Respiratory History: Reports: Sleep Apnea, TB Other Respiratory History: uses CPAP, hx of latent TB Gastrointestinal History: Reports: GERD, PUD Other Gastrointestinal History: hx gastric ulcer Genitourinary History: Reports: Renal Calculus Musculoskeletal History: Reports: Arthritis, Back Pain, Chronic, Fracture Other Musculoskeletal History: hx of fx right arm, DDD Neurological History: Reports: Other (See Below) Other Neuro History: hx of motion sickness Psychiatric History: Reports: None Endocrine/Metabolic History: Reports: Obesity/BMI 30+ (BMI 35.9) Hematologic History: Reports: Anemia, Anticoagulation Therapy, Blood Transfusion (s) Immunologic History: Reports: None Oncologic (Cancer) History: Reports: None Dermatologic History: Reports: None - Infectious Disease History Infectious Disease History: Reports: Chicken Pox, TB - Past Surgical History Head Surgeries/Procedures: Reports: None HEENT Surgical History: Reports: None Cardiovascular Surgical History: Reports: Valve Replacement Other Cardiovascular Surgeries/Procedures: Aortic Bicuspid Valve replacement Respiratory Surgical History: Reports: None GI Surgical History: Reports: EGD (12/10) Male Surgical History: Reports: Lithotripsy (ESWL) Endocrine Surgical History: Reports: None Neurological Surgical History: Reports: None Musculoskeletal Surgical History: Reports: Arthroscopic Knee, Knee Replacement, Other (See Below) Other Musculoskeletal Surgeries/Procedures:: rt knee scope x2, right TKA 09/06 Oncologic Surgical History: Reports: None Dermatological Surgical History: Reports: None - SUBSTANCE USE Smoking Status *Q: Current Every Day Smoker Tobacco Use Within Last Twelve Months: Cigarettes - HOME MEDS Home Medications: Home Meds Metoprolol Tartrate 25 mg PO BID 04/11/16 [History] Warfarin [Coumadin] 5 mg PO ASDIRECTED 04/11/16 [History] Fenofibrate Nanocrystallized [Fenofibrate] 160 mg PO DAILY 10/20/18 [History] Enoxaparin [Lovenox] 100 mg SQ BID 3 Days #6 syringe 10/21/18 [Rx] Acetaminophen [Tylenol Extra Strength] 1 - 2 tab PO ASDIRECTED PRN 03/28/19 [ History] Esomeprazole Magnesium [Nexium] 40 mg PO DAILY 03/28/19 [History] Methocarbamol [Robaxin-750] 750 mg PO TID PRN 03/28/19 [History] Pregabalin [Lyrica] 150 mg PO TID 03/28/19 [History] Warfarin [Coumadin] 1.5 tab PO ASDIRECTED 03/28/19 [History] oxyCODONE 20 mg PO Q4H PRN 03/28/19 [History] - CURRENT (IN HOUSE) MEDS Current Meds: Current Medications Lactated Ringer's (Ringers, Lactated) 1,000 mls @ 125 mls/hr IV ASDIRECTED [facility] Last Admin: 04/03/19 11:25 Dose: 125 mls/hr Discontinued Medications Fentanyl (Sublimaze) Confirm Administered Dose 100 mcg .ROUTE .STK-MED ONE Stop: 04/03/19 09:48 Cefoxitin Sodium 2 gm/ Premix 50 mls @ 100 mls/hr IV ONETIME ONE Stop: 04/03/19 08:29 Cefoxitin Sodium (Mefoxin In Dextrose,Iso-Osm 1 Gm/50 Ml) Confirm Administered Dose 100 mls @ as directed .ROUTE .STK-MED ONE Stop: 04/03/19 09:48 Lidocaine HCl (Xylocaine-Mpf 1%) Confirm Administered Dose 5 ml .ROUTE .STK-MED ONE Stop: 04/03/19 09:48 Propofol (Diprivan 20 Ml) Confirm Administered Dose 200 mg .ROUTE .STK-MED ONE Stop: 04/03/19 09:48
[2019-04-03] MEDS ORDERED: Ketorolac 30 MG/ML SDV ONE (13:53)
[2019-04-03] MEDS ORDERED: Lactated Ringers 1,000 ML IV SCH (14:45)
--- NOTE | 2019-04-03 14:50 | PCM.OPNOTE ---
- General Post-Op/Procedure Note Date of Surgery/Procedure: 04/03/19 Operative Procedure(s): Esophagogastroduodenoscopy with gastric biopsy. Colonoscopy. Pre Op Diagnosis: History of pyloric channel ulcer. Melena and hematochezia. Post-Op Diagnosis: Acute & chronic gastritis. No evidence of colonic neoplasia. Anesthesia Technique: MAC (ASA II) Primary Surgeon: Marcelo Ruffin Condition: Good Free Text/Narrative:: Intake & Output 04/03/19 04/03/19 04/03/19 03:59 11:59 19:59 Intake Total 650 Balance 650 DICTATION 210958/358254 CPT CODE 17951/57221
[2019-04-03 14:54] VITALS: BP 141/87; PULSE 61
--- NOTE | 2019-04-03 15:35 | PCM.POSTAN ---
POST ANESTHESIA ASSESSMENT - MENTAL STATUS Mental Status: Alert, Oriented - VITAL SIGNS Vital Signs: Last Vital Signs Temp 36.2 C 04/03/19 14:45 Pulse 61 04/03/19 14:45 Resp 13 04/03/19 14:45 BP 141/87 H 04/03/19 14:45 Pulse Ox 98 04/03/19 14:45 - RESPIRATORY Respiratory Status: Respiratory Rate WNL, Airway Patent, O2 Saturation Stable - CARDIOVASCULAR CV Status: Pulse Rate WNL, Blood Pressure Stable - GASTROINTESTINAL GI Status: No Symptoms - PAIN Pain Score: 0 (]) - POST OP HYDRATION Hydration Status: Adequate & Stable - OBSERVATIONS Free Text/Narrative:: No anesthesia problems
--- NOTE | 2019-04-03 15:36 | PCM48HPAN ---
Post Anesthesia Note - EVALUATION WITHIN 48HRS OF ANESTHETIC Vital Signs in Normal Range: Yes Patient Participated in Evaluation: Yes Respiratory Function Stable: Yes Airway Patent: Yes Cardiovascular Function Stable: Yes Hydration Status Stable: Yes Pain Control Satisfactory: Yes Nausea and Vomiting Control Satisfactory: Yes Mental Status Recovered: Yes Vital Signs: Last Vital Signs Temp 36.2 C 04/03/19 14:45 Pulse 61 04/03/19 14:45 Resp 13 04/03/19 14:45 BP 141/87 H 04/03/19 14:45 Pulse Ox 98 04/03/19 14:45 - COMMENTS/OBSERVATIONS Free Text/Narrative:: No anesthesia problems
--- NOTE | 2019-04-03 16:29 | OR ---
SURGEON: Marcelo Ruffin M.D. DATE OF PROCEDURE: 04/03/2019 OPERATION PERFORMED: Colonoscopy. PRIMARY SURGEON: Marcelo Ruffin MD. ANESTHESIA: MAC. ASA CLASSIFICATION: II. PREOPERATIVE DIAGNOSIS: Melena. POSTOPERATIVE DIAGNOSIS: No evidence of colonic neoplasia. DESCRIPTION OF PROCEDURE: The patient was maintained in the left lateral decubitus position. The colonoscope was inserted into the rectum and advanced with minimal difficulty to the cecum. The prep was fair, but there was a large amount of fairly solid fecal material present. Nevertheless, I was able to maneuver the colonoscope into the cecum and retroflex this to visualize the ascending colon from below. The colonoscope was then straightened and slowly withdrawn. The cecum, ascending colon, hepatic flexure, transverse colon, splenic flexure, descending colon, sigmoid colon, and rectum were well visualized. No tumors, polyps, or diverticular changes were noted anywhere throughout the lower gastrointestinal tract. Once the colonoscope was withdrawn to the rectum, it was retroflexed to visualize the anal orifice from above. Again, no tumors or polyps were seen and there were no acute hemorrhoidal changes. The colonoscope was then straightened, the rectum aspirated, and the colonoscope removed. The patient tolerated the procedure well and was taken to recovery room in stable condition. BILL / FAHEEM /[id number]
--- NOTE | 2019-04-03 16:35 | OR ---
SURGEON: Marcelo Ruffin M.D. DATE OF PROCEDURE: 04/03/2019 OPERATION PERFORMED: Esophagogastroduodenoscopy with biopsy. PRIMARY SURGEON: Marcelo Ruffin MD. ANESTHESIA: MAC. ASA CLASSIFICATION: II. PREOPERATIVE DIAGNOSIS: Personal history of pyloric channel ulcer. POSTOPERATIVE DIAGNOSIS: Acute on chronic gastritis without ulceration. DESCRIPTION OF PROCEDURE: The patient was taken to the endoscopy room and positioned on the endoscopy table in the left lateral decubitus position. Time-out was called for appropriate identification of the patient and procedure. The gastroscope was inserted through the bite block into the oropharynx and advanced without difficulty through the esophagus and stomach into the duodenum where examination was carried out in a retrograde fashion. Duodenum showed no acute inflammatory changes. The stomach did show [id number] gastritis. Antral biopsies were obtained to look for the presence of Helicobacter pylori. The gastroscope was retroflexed to visualize the proximal stomach. No polyps were noted proximally and no ulcers or tumors were seen. The GE junction was well defined and showed no acute inflammatory changes or ulcerations. The esophagus demonstrated good contractility. No mid or proximal lesions were identified. The vocal cords were visualized as the scope was withdrawn and noted to move symmetrically. The gastroscope was then removed with the patient having tolerated the procedure well. Following colonoscopy, he was taken to recovery room in stable condition. BILL / FAHEEM /[id number]
== END 2019-04-03 15:25 | disposition home or self-care (01) ==
LOC: MW.SDS 09:45
PROVIDERS: ATTEND Surgery
DX: K29.01 Acute gastritis with bleeding (principal); K29.51 Unspecified chronic gastritis with bleeding; K21.9 Gastro-esophageal reflux disease without esophagitis; M19.042 Primary osteoarthritis, left hand; M19.041 Primary osteoarthritis, right hand; M17.11 Unilateral primary osteoarthritis, right knee; G47.30 Sleep apnea, unspecified; F17.200 Nicotine dependence, unspecified, uncomplicated; E66.9 Obesity, unspecified; Z68.35 Body mass index [BMI] 35.0-35.9, adult; Z79.01 Long term (current) use of anticoagulants; Z95.2 Presence of prosthetic heart valve; Z96.651 Presence of right artificial knee joint; Z99.89 Dependence on other enabling machines and devices; Z79.899 Other long term (current) drug therapy
CPT/HCPCS: 43239; 45378; J0694; J1885; J2001; J2704; J3010; J7120; 00813; 88305; 88312

== ENCOUNTER 2019-05-15 20:20 | Emergency (ER) | payer BC ==
--- NOTE | 2019-05-15 22:06 | EDM.PDOC ---
ED HPI GENERAL MEDICAL PROBLEM - General Chief Complaint: ENT Problem Stated Complaint: SICK Time Seen by Provider: 05/15/19 21:52 Source of Information: Reports: Patient History Limitations: Reports: No Limitations - History of Present Illness INITIAL COMMENTS - FREE TEXT/NARRATIVE: 38-year-old male presents to the emergency room with a chief complaint of feeling like there is something in his ear. Patient felt like there was wax in his ear so he put some drops in his ear. States difficulty hearing out of his right ear. Onset: Today Duration: Waxing/Waning Location: Reports: Head Severity: Mild Improves with: Reports: None Worsens with: Reports: None Associated Symptoms: Reports: No Other Symptoms left ear Pain Score (Numeric/FACES): 10 - Related Data Allergies Allergy/AdvReac Type Severity Reaction Status Date / Time No Known Allergies Allergy Verified 05/15/19 21:07 Home Meds: Home Meds Metoprolol Tartrate 25 mg PO BID 04/11/16 [History] Warfarin [Coumadin] 5 mg PO ASDIRECTED 04/11/16 [History] Fenofibrate Nanocrystallized [Fenofibrate] 160 mg PO DAILY 10/20/18 [History] Acetaminophen [Tylenol Extra Strength] 1 - 2 tab PO ASDIRECTED PRN 03/28/19 [ History] Esomeprazole Magnesium [Nexium] 40 mg PO DAILY 03/28/19 [History] Methocarbamol [Robaxin-750] 750 mg PO TID PRN 03/28/19 [History] Pregabalin [Lyrica] 150 mg PO TID 03/28/19 [History] Warfarin [Coumadin] 1.5 tab PO ASDIRECTED 03/28/19 [History] oxyCODONE 20 mg PO Q4H PRN 03/28/19 [History] Past Medical History HEENT History: Reports: None Cardiovascular History: Reports: Heart Valve Replacement Other Cardiovascular History: takes metoprolol since heart valve surgery, never hypertensive. Aortic valve, metallic mechanical placed 2011. stopped warfarin on , on lovenox since Respiratory History: Reports: Sleep Apnea, TB Other Respiratory History: uses CPAP, hx of latent TB Gastrointestinal History: Reports: GERD, PUD Other Gastrointestinal History: hx gastric ulcer Genitourinary History: Reports: Renal Calculus Musculoskeletal History: Reports: Arthritis, Back Pain, Chronic, Fracture Other Musculoskeletal History: hx of fx right arm, DDD Neurological History: Reports: Other (See Below) Other Neuro History: hx of motion sickness Psychiatric History: Reports: None Endocrine/Metabolic History: Reports: Obesity/BMI 30+ Hematologic History: Reports: Anemia, Anticoagulation Therapy, Blood Transfusion (s) Immunologic History: Reports: None Oncologic (Cancer) History: Reports: None Dermatologic History: Reports: None - Infectious Disease History Infectious Disease History: Reports: None - Past Surgical History Head Surgeries/Procedures: Reports: None HEENT Surgical History: Reports: None Cardiovascular Surgical History: Reports: Valve Replacement Other Cardiovascular Surgeries/Procedures: Aortic Bicuspid Valve replacement Respiratory Surgical History: Reports: None GI Surgical History: Reports: EGD Male Surgical History: Reports: Lithotripsy (ESWL) Endocrine Surgical History: Reports: None Neurological Surgical History: Reports: None Musculoskeletal Surgical History: Reports: Arthroscopic Knee, Knee Replacement, Other (See Below) Other Musculoskeletal Surgeries/Procedures:: rt knee scope x2, right TKA 09/06 Oncologic Surgical History: Reports: None Dermatological Surgical History: Reports: None Social & Family History - Family History Family Medical History: Noncontributory Cardiac: Reports: Hypertension, SD - Tobacco Use Smoking Status *Q: Current Every Day Smoker Years of Tobacco use: 4 Packs/Tins Daily: 0.5 - Caffeine Use Caffeine Use: Reports: Coffee - Recreational Drug Use Recreational Drug Use: No ED ROS ENT - Review of Systems Review Of Systems: See Below Constitutional: Reports: No Symptoms HEENT: Reports: Ear Pain, Vertigo Respiratory: Reports: No Symptoms Cardiovascular: Reports: No Symptoms Endocrine: Reports: No Symptoms GI/Abdominal: Reports: No Symptoms : Reports: No Symptoms Musculoskeletal: Reports: No Symptoms Skin: Reports: No Symptoms Neurological: Reports: No Symptoms Psychiatric: Reports: No Symptoms Hematologic/Lymphatic: Reports: No Symptoms Immunologic: Reports: No Symptoms ED EXAM, ENT - Physical Exam Exam: See Below Exam Limited By: No Limitations General Appearance: Alert, WD/WN, No Apparent Distress Eye Exam: Bilateral Eye: Normal Fundi, Normal Inspection, PERRL Ears: Normal External Exam, Normal Canal, Hearing Grossly Normal, Normal TMs Nose: Normal Inspection, Normal Mucousa, No Blood Mouth/Throat: Normal Inspection, Normal Gums Head: Atraumatic, Normocephalic Neck: Normal Inspection, Supple, Non-Tender Respiratory/Chest: No Respiratory Distress, Lungs Clear, Normal Breath Sounds Cardiovascular: Normal Peripheral Pulses, Regular Rate, Rhythm, No JVD GI/Abdominal: Normal Bowel Sounds, Soft (Male) Exam: Deferred Rectal (Males) Exam: Deferred Back: Normal Inspection, Full Range of Motion Extremities: Normal Inspection, Normal Range of Motion, No Pedal Edema Psychiatric: Normal Affect, Normal Mood Skin: Warm, Dry, Intact Lymphatic: No Adenopathy Course - Vital Signs Last Recorded V/S: Last Vital Signs Temp 98.1 F 05/15/19 21:08 Pulse 79 05/15/19 21:08 Resp 18 05/15/19 21:08 BP 114/74 05/15/19 21:08 Pulse Ox 96 05/15/19 21:08 - Orders/Labs/Meds Orders: Active Orders 24 hr Category Date Time Status EKG 12 Lead [EKG Documentation Completion] [RC] STAT Care 05/15/19 21:49 Active Labs: Laboratory Tests 05/15/19 Range/Units 21:38 WBC 12.67 H (4.0-11.0) K/uL RBC 4.49 L (4.50-5.90) M/uL Hgb 14.6 (13.0-17.0) g/dL Hct 41.3 (38.0-50.0) % MCV 92.0 (80.0-98.0) fL MCH 32.5 H (27.0-32.0) pg MCHC 35.4 (31.0-37.0) g/dL RDW Std Deviation 41.3 (28.0-62.0) fl RDW Coeff of Ghada 12 (11.0-15.0) % Plt Count 221 (150-400) K/uL MPV 10.80 (7.40-12.00) fL Neut % (Auto) 78.1 (48.0-80.0) % Lymph % (Auto) 14.6 L (16.0-40.0) % Schuyler % (Auto) 6.9 (0.0-15.0) % Eos % (Auto) 0.2 (0.0-7.0) % Baso % (Auto) 0.2 (0.0-1.5) % Neut # (Auto) 9.9 H (1.4-5.7) K/uL Lymph # (Auto) 1.9 (0.6-2.4) K/uL Schuyler # (Auto) 0.9 H (0.0-0.8) K/uL Eos # (Auto) 0.0 (0.0-0.7) K/uL Baso # (Auto) 0.0 (0.0-0.1) K/uL Nucleated RBC % 0.0 /100WBC Nucleated RBCs # 0 K/uL Departure - Departure Time of Disposition: 22:01 Disposition: Home, Self-Care 01 Condition: Good Clinical Impression: Otitis externa - Discharge Information Instructions: Ear Drops, Adult, Ear Drops, Adult, [id number] Referrals: José Miguel Bunn MD [Primary Care Provider] - Additional Instructions: Patient medication as prescribed 2. Follow-up with your primary care physician #3 return for any problem Sepsis Event Note - Evaluation Sepsis Screening Result: No Definite Risk - Focused Exam Vital Signs: Vital Signs Temp Pulse Resp BP Pulse Ox 05/15/19 21:08 98.1 F 79 18 114/74 96 Date Exam was Performed: 05/15/19 Time Exam was Performed: 21:57 - My Orders Last 24 Hours: My Active Orders 05/15/19 21:49 EKG 12 Lead [EKG Documentation Completion] [RC] STAT - Assessment/Plan Last 24 Hours: My Active Orders 05/15/19 21:49 EKG 12 Lead [EKG Documentation Completion] [RC] STAT
[2019-05-15] MEDS: Gentamicin 0.3% Ophth Soln 5 ML Bottle ONE ×2 (22:19→22:20)
[2019-05-15 22:25] VITALS: BP 101/68; PULSE 72
[2019-05-16] MEDS ORDERED: Gentamicin 0.3% Ophth Soln 5 ML Bottle EYELF SCH (06:00)
[2019-05-16] MEDS ORDERED: Gentamicin 0.3% Ophth Soln 5 ML Bottle EYELF ONE (22:11)
== END 2019-05-15 22:26 | disposition home or self-care (01) ==
LOC: MW.ED 20:20
DX: H60.92 Unspecified otitis externa, left ear (principal); K21.9 Gastro-esophageal reflux disease without esophagitis; E66.9 Obesity, unspecified; F17.210 Nicotine dependence, cigarettes, uncomplicated; Z79.01 Long term (current) use of anticoagulants; Z79.899 Other long term (current) drug therapy
CPT/HCPCS: 36415; 85025; 93005; 99283; A9270

== ENCOUNTER 2019-07-07 14:23 | Emergency (ER) | payer BC ==
[2019-07-07] MEDS ORDERED: Sodium Chloride 0.9% 10 ML Syringe FLUSH PRN (14:30)
[2019-07-07] MEDS ORDERED: Sodium Chloride 0.9% 2.5 ML Syringe FLUSH PRN (14:30)
[2019-07-07] MEDS ORDERED: Morphine 4 MG/ML Syringe IVPUSH ONE (15:00)
[2019-07-07 15:12] LABS: BLOOD UREA NITROGEN,BUN 10 mg/dL (7.0-18.0); CARBON DIOXIDE,CO2 26.7 mmol/L (21.0-32.0); CHLORIDE,CL 100 mmol/L (98-107); GLUCOSE RANDOM 110 mg/dL (74-106); POTASSIUM,K 3.9 mmol/L (3.5-5.1); SODIUM,NA 137 mmol/L (136-148)
--- NOTE | 2019-07-07 15:12 | CR ---
Chest: Portable view of the chest was obtained. Comparison: Prior chest x-ray of 10/19/18. Heart size is within normal limits for portable technique. Tortuous thoracic aorta is seen. Lungs are clear with no acute parenchymal change. Bony structures are grossly intact. Impression: 1. Nothing acute is seen on portable chest x-ray. Diagnostic code #1 This report was dictated in MDT
--- NOTE | 2019-07-07 15:36 | EDM.PDOC ---
ED HPI GENERAL MEDICAL PROBLEM - General Chief Complaint: Chest Pain Stated Complaint: CHEST PAIN Time Seen by Provider: 07/07/19 14:55 Source of Information: Reports: Patient History Limitations: Reports: No Limitations - History of Present Illness INITIAL COMMENTS - FREE TEXT/NARRATIVE: 48-year-old male presents emergency room with a chief complaint of has pain 8/ 10 for 4 hours. Patient has a history of aortic valve replacement has never had a heart attack in the past Duration: Hour(s): (4) Location: Reports: Chest Quality: Reports: Pressure Severity: Moderate Associated Symptoms: Reports: Chest Pain Right Chest Pain Score (Numeric/FACES): 8 - Related Data Allergies Allergy/AdvReac Type Severity Reaction Status Date / Time No Known Allergies Allergy Verified 07/07/19 14:42 Home Meds: Home Meds Metoprolol Tartrate 25 mg PO BID 04/11/16 [History] Warfarin [Coumadin] 5 mg PO ASDIRECTED 04/11/16 [History] Fenofibrate Nanocrystallized [Fenofibrate] 160 mg PO DAILY 10/20/18 [History] Acetaminophen [Tylenol Extra Strength] 1 - 2 tab PO ASDIRECTED PRN 03/28/19 [ History] Esomeprazole Magnesium [Nexium] 40 mg PO DAILY 03/28/19 [History] Pregabalin [Lyrica] 150 mg PO TID 03/28/19 [History] Warfarin [Coumadin] 1.5 tab PO ASDIRECTED 03/28/19 [History] methocarbamoL [Robaxin-750] 750 mg PO TID PRN 03/28/19 [History] oxyCODONE 20 mg PO Q4H PRN 03/28/19 [History] Past Medical History HEENT History: Reports: None Cardiovascular History: Reports: Heart Valve Replacement, High Cholesterol, Hypertension Other Cardiovascular History: takes metoprolol since heart valve surgery,. Aortic valve, metallic mechanical placed 2011 Respiratory History: Reports: Sleep Apnea, TB Other Respiratory History: uses CPAP, hx of latent TB Gastrointestinal History: Reports: GERD, PUD Other Gastrointestinal History: hx gastric ulcer Genitourinary History: Reports: Renal Calculus Musculoskeletal History: Reports: Arthritis, Back Pain, Chronic, Fracture Other Musculoskeletal History: hx of fx right arm, DDD Neurological History: Reports: Other (See Below) Other Neuro History: hx of motion sickness Psychiatric History: Reports: None Endocrine/Metabolic History: Reports: Obesity/BMI 30+ Hematologic History: Reports: Anemia, Anticoagulation Therapy, Blood Transfusion (s) Immunologic History: Reports: None Oncologic (Cancer) History: Reports: None Dermatologic History: Reports: None - Infectious Disease History Infectious Disease History: Reports: Chicken Pox, TB - Past Surgical History Head Surgeries/Procedures: Reports: None HEENT Surgical History: Reports: None Cardiovascular Surgical History: Reports: Valve Replacement Other Cardiovascular Surgeries/Procedures: Aortic Bicuspid Valve replacement Respiratory Surgical History: Reports: None GI Surgical History: Reports: Colonoscopy, EGD Male Surgical History: Reports: Lithotripsy (ES[facility]) Endocrine Surgical History: Reports: None Neurological Surgical History: Reports: None Musculoskeletal Surgical History: Reports: Arthroscopic Knee, Knee Replacement, Other (See Below) Other Musculoskeletal Surgeries/Procedures:: rt knee scope x2, right TKA 09/06 Oncologic Surgical History: Reports: None Dermatological Surgical History: Reports: None Social & Family History - Family History Family Medical History: Noncontributory Cardiac: Reports: Hypertension, [place] - Tobacco Use Smoking Status *Q: Current Every Day Smoker Years of Tobacco use: 5 Packs/Tins Daily: 0.3 - Caffeine Use Caffeine Use: Reports: Coffee - Recreational Drug Use Recreational Drug Use: No ED ROS GENERAL - Review of Systems Review Of Systems: See Below Constitutional: Reports: No Symptoms HEENT: Reports: No Symptoms Respiratory: Reports: No Symptoms Cardiovascular: Reports: Chest Pain Endocrine: Reports: No Symptoms GI/Abdominal: Reports: No Symptoms : Reports: No Symptoms Musculoskeletal: Reports: No Symptoms Skin: Reports: No Symptoms Neurological: Reports: No Symptoms Psychiatric: Reports: No Symptoms Hematologic/Lymphatic: Reports: No Symptoms ED EXAM, GENERAL - Physical Exam Exam: See Below Exam Limited By: No Limitations General Appearance: Alert, WD/WN, No Apparent Distress Eye Exam: Bilateral Eye: Normal Fundi, Normal Inspection Ears: Normal External Exam, Normal Canal, Hearing Grossly Normal, Normal TMs Ear Exam: Bilateral Ear: Auricle Normal, Canal Normal Nose: Normal Inspection, Normal Mucosa Throat/Mouth: Normal Inspection, Normal Lips Head: Atraumatic, Normocephalic Neck: Normal Inspection, Supple Respiratory/Chest: No Respiratory Distress, Lungs Clear, No Accessory Muscle Use , Chest Non-Tender Cardiovascular: Normal Peripheral Pulses, Regular Rate, Rhythm, No JVD, No Murmur GI/Abdominal: Normal Bowel Sounds, Soft, Non-Tender, No Organomegaly, No Distention, No Abnormal Bruit (Male) Exam: No Hernia, Normal Inspection EKG INTERPRETATION Rhythm: NSR (No acute changes) [place]: Normal QRS: Normal ST-T: Normal QT: Normal Course - Vital Signs Last Recorded V/S: Last Vital Signs Temp 97.2 F 07/07/19 14:25 Pulse 66 07/07/19 14:25 Resp 18 07/07/19 14:25 BP 136/84 07/07/19 14:25 Pulse Ox 98 07/07/19 14:25 - Orders/Labs/Meds Orders: Active Orders 24 hr Category Date Time Status EKG Documentation Completion [RC] STAT Care 07/07/19 14:30 Active Chest 1V Frontal [CR] Stat Exams 07/07/19 14:30 Ordered COMPREHENSIVE METABOLIC PN,CMP [CHEM] Stat Lab 07/07/19 14:35 Received TROPONIN I [CHEM] Stat Lab 07/07/19 14:35 Received Sodium Chloride 0.9% [Saline Flush] Med 07/07/19 14:30 Active 10 ml FLUSH ASDIRECTED PRN Sodium Chloride 0.9% [Saline Flush] Med 07/07/19 14:30 Active 2.5 ml FLUSH ASDIRECTED PRN Saline Lock Insert [OM.PC] Stat Oth 07/07/19 14:30 Ordered Medication Orders Sodium Chloride (Saline Flush) 10 ml FLUSH ASDIRECTED PRN PRN Reason: Keep Vein Open Sodium Chloride (Saline Flush) 2.5 ml FLUSH ASDIRECTED PRN PRN Reason: Keep Vein Open Labs: Laboratory Tests 07/07/19 07/07/19 Range/Units 14:35 14:35 WBC 5.75 (4.0-11.0) K/uL RBC 4.12 L (4.50-5.90) M/uL Hgb 13.3 (13.0-17.0) g/dL Hct 38.4 (38.0-50.0) % MCV 93.2 (80.0-98.0) fL MCH 32.3 H (27.0-32.0) pg MCHC 34.6 (31.0-37.0) g/dL RDW Std Deviation 43.0 (28.0-62.0) fl RDW Coeff of Ghada 13 (11.0-15.0) % Plt Count 167 (150-400) K/uL MPV 11.00 (7.40-12.00) fL Neut % (Auto) 48.8 (48.0-80.0) % Lymph % (Auto) 39.7 (16.0-40.0) % [place] % (Auto) 8.2 (0.0-15.0) % Eos % (Auto) 2.8 (0.0-7.0) % Baso % (Auto) 0.5 (0.0-1.5) % Neut # (Auto) 2.8 (1.4-5.7) K/uL Lymph # (Auto) 2.3 (0.6-2.4) K/uL [place] # (Auto) 0.5 (0.0-0.8) K/uL Eos # (Auto) 0.2 (0.0-0.7) K/uL Baso # (Auto) 0.0 (0.0-0.1) K/uL Nucleated RBC % 0.0 /100WBC Nucleated RBCs # 0 K/uL INR 3.12 Meds: Medications Generic Name Dose Route Start Last Admin Trade Name Freq PRN Reason Stop Dose Admin Sodium Chloride 10 ml 07/07/19 14:30 Saline Flush FLUSH ASDIRECTED PRN Keep Vein Open Sodium Chloride 2.5 ml 07/07/19 14:30 Saline Flush FLUSH ASDIRECTED PRN Keep Vein Open Departure - Departure Time of Disposition: 15:37 Disposition: Refer to Observation Condition: Good Clinical Impression: Chest pain Qualifiers: Chest pain type: unspecified Qualified Code(s): R07.9 - Chest pain, unspecified Referrals: PCP,None [Primary Care Provider] - Sepsis Event Note - Evaluation Sepsis Screening Result: No Definite Risk - Focused Exam Vital Signs: Vital Signs Temp Pulse Resp BP Pulse Ox 07/07/19 14:25 97.2 F 66 18 136/84 98 Date Exam was Performed: 07/07/19 Time Exam was Performed: 14:55
[2019-07-07 23:22] VITALS: BP 119/86; PULSE 66
== END 2019-07-07 16:11 | disposition left against medical advice (07) ==
LOC: MW.ED 14:23
DX: R07.89 Other chest pain (principal); I10 Essential (primary) hypertension; E78.00 Pure hypercholesterolemia, unspecified; K21.9 Gastro-esophageal reflux disease without esophagitis; E66.9 Obesity, unspecified; F17.210 Nicotine dependence, cigarettes, uncomplicated; Z68.36 Body mass index [BMI] 36.0-36.9, adult; Z79.899 Other long term (current) drug therapy; Z79.01 Long term (current) use of anticoagulants
CPT/HCPCS: 71045; 80053; 84484; 85025; 85610; 93005; 96374; 99285; J2270; 99283

== ENCOUNTER 2021-03-03 18:17 | Observation (INO) | payer OTHER ==
[2021-03-03] MEDS ORDERED: Sodium Chloride 0.9% 1,000 ML IV ONE (20:21)
[2021-03-03] MEDS ORDERED: Ondansetron 4 MG/2 ML SDV IVPUSH ONE (20:21)
[2021-03-03] MEDS ORDERED: Pantoprazole 40 MG/10 ML Syringe IVPUSH ONE (20:22)
[2021-03-03 20:23] LABS: CORONAVIRUS COVID-19 NAA NEGATIVE (NEGATIVE); INFLUENZA A NAA NEGATIVE (NEGATIVE); INFLUENZA B NAA NEGATIVE (NEGATIVE)
[2021-03-03 20:40] LABS: BLOOD UREA NITROGEN,BUN 33 mg/dL (7.0-18.0); CARBON DIOXIDE,CO2 27.4 mmol/L (21.0-32.0); CHLORIDE,CL 104 mmol/L (98-107); GLUCOSE RANDOM 133 mg/dL (74-106); SODIUM,NA 138 mmol/L (136-148)
[2021-03-03] MEDS ORDERED: Ondansetron 4 MG/2 ML SDV IVPUSH PRN (22:31)
[2021-03-03] MEDS ORDERED: Albuterol/Ipratropium 3.0-0.5 MG/3 ML Neb Soln NEB PRN (22:47)
[2021-03-04] MEDS: Morphine 2 MG/ML SYRINGE IVPUSH PRN ×2 (00:46→09:59)
[2021-03-04] MEDS ORDERED: Morphine 2 MG/ML SYRINGE IVPUSH ONE (01:29)
[2021-03-04 08:02] LABS: BLOOD UREA NITROGEN,BUN 43 mg/dL (7.0-18.0); CARBON DIOXIDE,CO2 23.5 mmol/L (21.0-32.0); CHLORIDE,CL 109 mmol/L (98-107); GLUCOSE RANDOM 105 mg/dL (74-106); POTASSIUM,K 4.1 mmol/L (3.5-5.1); SODIUM,NA 142 mmol/L (136-148)
[2021-03-04] MEDS: Lactated Ringers 1,000 ML IV SCH ×3 (08:20→17:51)
[2021-03-04] MEDS: Pantoprazole 40 MG/10 ML Syringe IVPUSH SCH ×2 (08:21→20:18)
[2021-03-04] MEDS ORDERED: Lactated Ringers 1,000 ML IV ONE ×2 (13:00→20:36)
[2021-03-04] MEDS ORDERED: fentaNYL 75 MCG/HR Transdermal Patch TRDERM SCH (13:15)
[2021-03-04] MEDS: Sucralfate Suspension 1 GM/10 ML Cup PO SCH ×2 (17:11→20:18)
[2021-03-04] MEDS ORDERED: Phytonadione 5 MG Tab PO ONE (19:43)
[2021-03-04] MEDS ORDERED: 50% Dextrose in Water 50 ML Syringe IVPUSH PRN (21:26)
[2021-03-04] MEDS ORDERED: Dextrose 5%-Lactated Ringers 1,000 ML IV SCH (21:30)
[2021-03-04] MEDS: oxyCODONE 5 MG Tab PO PRN (21:41)
[2021-03-05] MEDS ORDERED: Lactated Ringers 1,000 ML IV SCH ×2 (04:15→06:45)
[2021-03-05 06:11] LABS: BLOOD UREA NITROGEN,BUN 35 mg/dL (7.0-18.0); CARBON DIOXIDE,CO2 25.5 mmol/L (21.0-32.0); CHLORIDE,CL 114 mmol/L (98-107); GLUCOSE RANDOM 129 mg/dL (74-106); POTASSIUM,K 4.5 mmol/L (3.5-5.1); SODIUM,NA 144 mmol/L (136-148)
[2021-03-05] MEDS: Sucralfate Suspension 1 GM/10 ML Cup PO SCH ×3 (07:02→16:17)
[2021-03-05] MEDS: Pantoprazole 40 MG/10 ML Syringe IVPUSH SCH (09:41)
[2021-03-05] MEDS: oxyCODONE 5 MG Tab PO PRN ×3 (09:55→18:29)
[2021-03-05 10:38] VITALS: PULSE 109
[2021-03-05] MEDS ORDERED: Octreotide 500 MCG in Sodium Chloride 0.9% 495 ML IV SCH (13:45)
[2021-03-05] MEDS ORDERED: Pantoprazole 80 MG in Sodium Chloride 0.9% 100 ML IV SCH (14:00)
[2021-03-05] MEDS ORDERED: Morphine 2 MG/ML SYRINGE IVPUSH ONE (16:22)
[2021-03-05 20:06] VITALS: BP 98/65
[2021-03-05] MEDS ORDERED: Pantoprazole 40 MG in Sodium Chloride 0.9% 10 ML IV SCH (21:00)
== END 2021-03-05 19:50 ==
LOC: MW.ED 18:17 → MW.MS 21:53 → MW.ICU 03-05 12:17
PROVIDERS: ADMIT Student in an Organized Health Care Education/Training Program; ATTEND Student in an Organized Health Care Education/Training Program
DX: K92.2 Gastrointestinal hemorrhage, unspecified (principal); D64.9 Anemia, unspecified; I10 Essential (primary) hypertension; R19.5 Other fecal abnormalities; K21.9 Gastro-esophageal reflux disease without esophagitis; E78.00 Pure hypercholesterolemia, unspecified; G47.30 Sleep apnea, unspecified; E66.9 Obesity, unspecified; F17.210 Nicotine dependence, cigarettes, uncomplicated; Z95.2 Presence of prosthetic heart valve; Z79.899 Other long term (current) drug therapy; Z79.01 Long term (current) use of anticoagulants; Z98.890 Other specified postprocedural states; Z20.822 Contact with and (suspected) exposure to COVID-19
CPT/HCPCS: 0240U; 36415; 70450; 80048; 80053; 80305; 81001; 82947; 83605; 83735; 84100; 85014; 85018; 85025; 85610; 96365; 96375; 96376; 99285; A9270; C9113; G0378; J2270; J2354; J2405; J3430; J7030; J7040; J7120; J7121; P9016; P9017; 36430; 96374; 99217; 99220

== ENCOUNTER 2021-12-07 14:36 | Emergency (ER) | payer OTHER ==
[2021-12-07] MEDS: Lidocaine 2% Viscous Solution 15 ML UD PO ONE (16:15)
[2021-12-07] MEDS: Benzocaine 20% Topical Spray UD MUCMEM ONE (16:15)
[2021-12-07 17:36] VITALS: BP 138/89; PULSE 94
== END 2021-12-07 16:18 | disposition home or self-care (01) ==
LOC: MW.ED 14:36
DX: K04.7 Periapical abscess without sinus (principal); E78.00 Pure hypercholesterolemia, unspecified; I10 Essential (primary) hypertension; K21.9 Gastro-esophageal reflux disease without esophagitis; E66.9 Obesity, unspecified; Z68.1 Body mass index [BMI] 19.9 or less, adult; Z79.01 Long term (current) use of anticoagulants; Z79.899 Other long term (current) drug therapy
CPT/HCPCS: 99282; A9270; 99283

== ENCOUNTER 2023-01-04 20:55 | Emergency (ER) | payer SELFPAY ==
[2023-01-04 23:34] LABS: BASOPHILS ABSOLUTE AUTO 0.08 K/uL (0.00-0.20); EOSINOPHILS ABSOLUTE AUTO 0.28 K/uL (0.00-0.45); EOSINOPHILS PERCENT AUTO 3.4 % (0.0-6.0); HEMATOCRIT 40.5 % (42.0-52.0); IMMATURE GRAN ABSOLUTE AUTO 0.02 K/uL (0.00-0.05); IMMATURE GRAN PERCENT AUTO 0.2 % (0.0-0.4); LYMPHOCYTES ABSOLUTE AUTO 2.23 K/uL (1.00-4.80); LYMPHOCYTES PERCENT AUTO 27.3 % (24.0-44.0); MEAN CORPUSCULAR VOLUME 91.8 fL (83.0-99.0); MEAN PLATELET VOLUME 10.6 fL (9.4-12.4); MONOCYTES ABSOLUTE AUTO 0.76 K/uL (0.00-0.80); MONOCYTES PERCENT AUTO 9.3 % (0.0-8.0); NEUTROPHILS PERCENT AUTO 58.8 % (41.0-71.0); PLATELET COUNT,PLT 149 K/uL (150-400); RED BLOOD CELL COUNT 4.41 M/uL (4.52-5.90); WHITE BLOOD CELL COUNT,WBC 8.17 K/uL (3.9-11.3)
[2023-01-04 23:59] LABS: A/G RATIO 1.1 (0.9-1.6); ALBUMIN 3.9 g/dL (3.4-5.0); BILIRUBIN TOTAL 0.4 mg/dL (0.2-1.0); CARBON DIOXIDE,CO2 28.9 mmol/L (21.0-32.0); CREATININE 1.4 mg/dL (0.8-1.3); EST CRCL DRUG DOSING (CG) 60.39 mL/min; POTASSIUM,K 4.2 mmol/L (3.5-5.1); PROTEIN TOTAL,TP 7.4 g/dL (6.4-8.2)
[2023-01-05 00:01] LABS: INR 3.45 (0.86-1.11)
[2023-01-05 00:04] VITALS: BP 132/91; PULSE 62
== END 2023-01-05 00:18 | disposition home or self-care (01) ==
LOC: MW.ED 20:55
DX: I10 Essential (primary) hypertension (principal); E78.00 Pure hypercholesterolemia, unspecified; K21.9 Gastro-esophageal reflux disease without esophagitis; E66.9 Obesity, unspecified; Z79.01 Long term (current) use of anticoagulants; Z79.899 Other long term (current) drug therapy; Z68.32 Body mass index [BMI] 32.0-32.9, adult
CPT/HCPCS: 36415; 71045; 71045-26; 80053; 84484; 85025; 85610; 85730; 93005; 93010; 99283; 99285